=== PATIENT | female | born 1960 | race Caucasian/White ===

== ENCOUNTER 2017-01-04 01:43 | Emergency (ER) | payer BC ==
--- NOTE | 2017-01-04 02:20 | ERPHSYRPT ---
- History of Present Illness Time Seen by Provider: 01/04/17 02:05 Patient Subjective Stated Complaint: Pt sts been sick since Friday. Sts seen at urgent care and was dx with flu. Sts not given any Rx. Sts that she has had fever, highest temp 103.2. Last tylenol 4 hours ago. Sts cough with yellow sputum - thick in nature. Pt sts diarrhea a few days ago. Sts no N/V. Pt sts left ear pain and very sore throat. Triage Nursing Assessment: Pt alert, oriented, answers all questions appropriately. Skin p/w/d, resps non-labored. Lung sounds CTA bilat anterior/ posterior. Throat appears red. No exudate noted. Pain noted upon palpation left outer ear and left side of neck. + bowel sounds x 4 quadrants. Physician History: 56 y/o female with history of DM comes to the ER with complaints of shortness of breath, sore throat, wheezing, chest congestion and fever since Friday. Pt mentions she was seen at [facility], had a flu swab which was positive but was not treated. Pt had a fever as high as 102.4 but arrives with a temperature of 99.6. Timing/Duration: day(s) Activities at Onset: none Severity of Dyspnea-Max: mild Severity of Dyspnea-Current: mild Possible Cause: no prior episodes Modifying Factors: Improves With: coughing Associated Symptoms: cough, fever, wheezing International travel in last 2 weeks: No Allergies/Adverse Reactions: albuterol Allergy (Severe, Verified 04/28/15 07:18) Difficulty Breathing resp. distress Sulfa (Sulfonamide Antibiotics) Allergy (Severe, Verified 04/28/15 07:18) Tightness of Throat throat swells flu shot Allergy (Uncoded 01/04/17 02:08) Home Medications: Metformin HCl 500 mg [Glucophage 500 MG] 1 tab PO TID 04/28/15 [History] Pravastatin Sodium 1 tab PO DAILY 04/28/15 [History] Tamoxifen Citrate 1 tab PO DAILY 04/28/15 [History] Levothyroxine Sodium 137 mcg PO DAILY 01/04/17 [History] Hx Tetanus, Diphtheria Vaccination/Date Given: No Hx Influenza Vaccination/Date Given: No Hx Pneumococcal Vaccination/Date Given: No Immunizations Up to Date: No - Review of Systems Constitutional: No Fever, No Chills Eyes: No Symptoms Ears, Nose, & Throat: Throat Pain, Throat Swelling Respiratory: Cough, Dyspnea, Wheezing Cardiac: No Chest Pain, No Edema, No Syncope Abdominal/Gastrointestinal: No Abdominal Pain, No Nausea, No Vomiting, No Diarrhea Genitourinary Symptoms: No Dysuria Musculoskeletal: No Back Pain, No Neck Pain Skin: No Rash Neurological: No Dizziness, No Focal Weakness, No Sensory Changes Psychological: No Symptoms Endocrine: No Symptoms All Other Systems: Reviewed and Negative - Past Medical History Neurological History: No Pertinent History ENT History: No Pertinent History Cardiac History: No Pertinent History Respiratory History: No Pertinent History Endocrine Medical History: Diabetes Type II, Hypothyroidism Musculoskeletal History: No Pertinent History GI Medical History: No Pertinent History History: No Pertinent History Psycho-Social History: No Pertinent History Female Reproductive Disorders: No Pertinent History - Past Surgical History Past Surgical History: Yes Neuro Surgical History: No Pertinent History Cardiac: No Pertinent History Respiratory: No Pertinent History Gastrointestinal: No Pertinent History Genitourinary: No Pertinent History Female Surgical History: Hysterectomy, Lumpectomy Other Surgical History: exploratory lap.,right foot tendon, anal fissures - Social History Smoking Status: Never smoker Exposure to second hand smoke: No Drug Use: none Patient Lives Alone: No - Nursing Vital Signs Nursing Vital Signs: Initial Vital Signs Temperature 99.6 F Temperature Source Oral Pulse Rate 103 Respiratory Rate 18 Blood Pressure [Right Arm] 132/72 - Physical Exam General Appearance: no apparent distress, alert Eye Exam: PERRL/EOMI Ears, Nose, Throat Exam: pharyngeal erythema, No tonsillar exudate Neck Exam: normal inspection, supple Respiratory Exam: lungs clear Cardiovascular/Chest Exam: normal heart sounds, regular rate/rhythm, normal peripheral pulses Abdominal/Gastrointestinal Exam: soft, normal bowel sounds, No tenderness, No distention, No mass Extremity Exam: non-tender, normal range of motion, normal inspection, no calf tenderness, no pedal edema Neurologic Exam: alert, oriented x 3, cooperative, life 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-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 tested, sensation nml, No motor deficits Skin Exam: normal color, warm, No dry SpO2 Interpretation: normal SpO2: 96 Oxygen Delivery: Room Air - Course Nursing assessment & vital signs reviewed: Yes Ordered Tests: Active Orders 24 hr Category Date Time Status EKG-ER Only STAT Care 01/04/17 02:14 Active CHEST 2 VIEWS (PA AND LAT) Stat Exams 01/04/17 02:13 Taken CBC W DIFF Stat Lab 01/04/17 02:27 Completed CMP Stat Lab 01/04/17 02:27 Completed CULTURE, THROAT Stat Lab 01/04/17 02:27 Received Manual Differential NC Stat Lab 01/04/17 02:27 Completed NT PRO BNP Stat Lab 01/04/17 02:27 Completed STREP SCREEN-BETA A Stat Lab 01/04/17 02:27 Completed TROPONIN Stat Lab 01/04/17 02:27 Completed Medication Summary Generic Name Dose Route Start Last Admin Trade Name Zakiq PRN Reason Stop Dose Admin Azithromycin 500 mg 01/04/17 04:18 Zithromax 250 Mg Tablet PO 01/04/17 04:19 STAT ONE Guaifenesin/Codeine Phosphate 5 ml 01/04/17 04:18 Robitussin Ac Syrup Unit Dose Cup PO 01/04/17 04:19 ONCE ONE Lab/Rad Data: Laboratory Result Diagrams 01/04/17 02:27 01/04/17 02:27 Laboratory Results 01/04/17 01/04/17 01/04/17 Range/Units 02:27 02:27 02:27 WBC 4.4 (4.0-10.5) K/mm3 RBC 4.84 (4.1-5.4) M/mm3 Hgb 14.0 (12.0-16.0) gm/dl Hct 42.6 (35-47) % MCV 88.0 (78-100) fl MCH 28.9 (26-32) pg MCHC 32.9 (32-36) g/dl RDW 13.0 (11.5-14.0) % Plt Count 132 L (150-450) K/mm3 MPV 9.5 (6-9.5) fl Segmented Neutrophils 19 L (36.0-66.0) % Band Neutrophils 3 H (0.0-2.0) % Lymphocytes (Manual) 50 H (24-44) % Monocytes (Manual) 8 (0.0-12.0) % Eosinophils (Manual) 7 H (0.00-3.0) % Differential Comment NORMAL Atypical Lymphocytes 13 % Platelet Estimate NORMAL (NORMAL) Sodium 144 (136-145) mEq/L Potassium 3.8 (3.5-5.1) mEq/L Chloride 107 (98-107) mEq/L Carbon Dioxide 25.4 (21-32) mEq/L Anion Gap 14.9 (5-15) MEQ/L BUN 6 L (9-20) mg/dL Creatinine 0.82 (0.55-1.30) mg/dl Estimated GFR > 60 ML/MIN Glucose 140 H (70-110) MG/DL Calcium 8.7 (8.5-10.1) mg/dL Total Bilirubin 0.4 (0.2-1.0) mg/dL AST 62 H (15-37) U/L ALT 39 (12-78) U/L Alkaline Phosphatase 117 H (46-116) U/L Troponin I < 0.017 (0.000-0.056) ng/ml NT-Pro-B Natriuret Pep < 5.0 (0-125) pg/ml Serum Total Protein 7.0 (6.4-8.2) gm/dL Albumin 2.7 L (3.4-5.0) g/dL Streptococcus Screen (Negative) 01/04/17 Range/Units 02:27 WBC (4.0-10.5) K/mm3 RBC (4.1-5.4) M/mm3 Hgb (12.0-16.0) gm/dl Hct (35-47) % MCV (78-100) fl MCH (26-32) pg MCHC (32-36) g/dl RDW (11.5-14.0) % Plt Count (150-450) K/mm3 MPV (6-9.5) fl Segmented Neutrophils (36.0-66.0) % Band Neutrophils (0.0-2.0) % Lymphocytes (Manual) (24-44) % Monocytes (Manual) (0.0-12.0) % Eosinophils (Manual) (0.00-3.0) % Differential Comment Atypical Lymphocytes % Platelet Estimate (NORMAL) Sodium (136-145) mEq/L Potassium (3.5-5.1) mEq/L Chloride (98-107) mEq/L Carbon Dioxide (21-32) mEq/L Anion Gap (5-15) MEQ/L BUN (9-20) mg/dL Creatinine (0.55-1.30) mg/dl Estimated GFR ML/MIN Glucose (70-110) MG/DL Calcium (8.5-10.1) mg/dL Total Bilirubin (0.2-1.0) mg/dL AST (15-37) U/L ALT (12-78) U/L Alkaline Phosphatase (46-116) U/L Troponin I (0.000-0.056) ng/ml NT-Pro-B Natriuret Pep (0-125) pg/ml Serum Total Protein (6.4-8.2) gm/dL Albumin (3.4-5.0) g/dL Streptococcus Screen NEGATIVE (Negative) - Progress Progress: improved Air Movement: good Progress Note: 01/04/17 04:20 The CXR is within normal limits. Rapid strep is negative. The labs do not show any abnormalities. Pt will be d/c home on azithromycin and guafenesin with codeine for bronchitis. - Departure Time of Disposition: 04:21 Departure Disposition: Home Clinical Impression: Bronchitis Condition: Stable Critical Care Time: No Instructions: Bronchitis Additional Instructions: Return to the ER if you should continue to have shortness of breath, cough, fever or chills. Finish the antibiotics until completion. Prescriptions: Azithromycin 250 mg PO DAILY #4 tablet Guaifenesin/Codeine Phosphate [Codeine-Guaifen 10-100 mg/5 ml] 5 ml PO Q4-6HPRN PRN #120 liquid PRN Reason: Cough
[2017-01-04 02:32] LABS: Mean Corpuscular Hemoglobin 28.9 pg (26-32); Mean Platelet Volume 9.5 fl (6-9.5); Platelet Count 132 K/mm3 (150-450); Red Blood Count 4.84 M/mm3 (4.1-5.4); White Blood Count 4.4 K/mm3 (4.0-10.5)
[2017-01-04 02:53] LABS: ALBUMIN 2.7 g/dL (3.4-5.0); ALKALINE PHOSPHATASE 117 U/L (46-116); ANION GAP 14.9 MEQ/L (5-15); BILIRUBIN,TOTAL 0.4 mg/dL (0.2-1.0); BLOOD UREA NITROGEN 6 mg/dL (9-20); CHLORIDE 107 mEq/L (98-107); Carbon Dioxide 25.4 mEq/L (21-32); Glucose 140 MG/DL (70-110); Potassium 3.8 mEq/L (3.5-5.1); SGOT/AST 62 U/L (15-37); SGPT/ALT 39 U/L (12-78); SODIUM 144 mEq/L (136-145)
[2017-01-04 03:03] LABS: TROPONIN < 0.017 ng/ml (0.000-0.056)
[2017-01-04 03:09] LABS: ATYPICAL LYMPHS 13 %; BAND 3 % (0.0-2.0); Eosinophil 7 % (0.00-3.0); Platelet Estimate NORMAL (NORMAL); Total Cells Counted 100
[2017-01-04] MEDS ORDERED: Zithromax 250 MG TABLET PO ONE (04:18)
[2017-01-04] MEDS ORDERED: Robitussin AC Syrup Unit Dose Cup PO ONE (04:18)
[2017-01-04] MEDS ORDERED: Zithromax 250 MG TABLET ONE (04:23)
[2017-01-04] MEDS ORDERED: Robitussin AC Syrup Unit Dose Cup ONE (04:23)
[2017-01-04 04:35] VITALS: BP 116/73; PULSE 91; O2SAT 95
--- NOTE | 2017-01-04 09:00 | XRAY ---
Indication: Short of breath and flulike symptoms. Comparison: March 31, 2014. PA/lateral chest remains clear again with a few calcific granulomas. Heart is not enlarged. Bony thorax intact. Impression: Stable nonacute chest.
== END 2017-01-04 04:45 | disposition home or self-care (01) ==
LOC: ED 01:43
DX: J40 Bronchitis, not specified as acute or chronic (principal); R50.9 Fever, unspecified; R06.02 Shortness of breath; E11.9 Type 2 diabetes mellitus without complications; E03.9 Hypothyroidism, unspecified; Z79.84 Long term (current) use of oral hypoglycemic drugs; Z79.899 Other long term (current) drug therapy
CPT/HCPCS: 36415; 71020; 80053; 83880; 84484; 85025; 87070; 87430; 93005; 99283; 99284; 99285

== ENCOUNTER 2018-01-14 11:40 | Observation (INO) | payer BC ==
[2018-01-14] MEDS ORDERED: NITRO-BID 2% UD PACKETS TOP ONE (11:54)
[2018-01-14] MEDS ORDERED: BABY ASPIRIN 81 MG CHEW PO ONE (11:54)
[2018-01-14] MEDS ORDERED: NITRO-BID 2% UD PACKETS ONE (11:57)
[2018-01-14] MEDS ORDERED: BABY ASPIRIN 81 MG CHEW ONE (11:57)
--- NOTE | 2018-01-14 12:29 | XRAY ---
Indication: Chest pain. Comparison: January 04, 2017. Portable chest again demonstrates normal heart, lungs, and bony thorax with a few incidental calcified granulomas.
--- NOTE | 2018-01-14 12:29 | ERPHSYRPT ---
- History of Present Illness Time Seen by Provider: 01/14/18 11:54 Historian: patient, family, old records, other (Dr Chacko) Exam Limitations: no limitations Patient Subjective Stated Complaint: chest pain Triage Nursing Assessment: pt to er from Dr. Chacko's office, states she has had chest pain for 1 week with the onset of shingles, pain radiates through chest to the back, pt has shingles noted crusted over at this time Physician History: patient wth Shingles; developed new CP today left ant chest; heavy ; SOB; no n& V radiates to back; no prior hx; Timing/Duration: today, gradual onset Activities at Onset: emotional stress Quality: pressure, tightness Location: substernal Chest Pain Radiation: back Severity of Pain-Max: severe Severity of Pain-Current: moderate Modifying Factors: Improves With: nothing Associated Symptoms: shortness of breath, hurts to breathe, back pain Prior Chest Pain/Cardiac Workup: non-cardiac Nitro Today/Relief: provided by ED Aspirin Treatment Today: provided by ED Allergies/Adverse Reactions: albuterol Allergy (Severe, Verified 04/28/15 07:18) Difficulty Breathing resp. distress Sulfa (Sulfonamide Antibiotics) Allergy (Severe, Verified 04/28/15 07:18) Tightness of Throat throat swells flu shot Allergy (Uncoded 01/04/17 02:08) Home Medications: Metformin HCl 500 mg [Glucophage 500 MG] 1 tab PO TID 04/28/15 [History] Pravastatin Sodium 1 tab PO DAILY 04/28/15 [History] Tamoxifen Citrate 1 tab PO DAILY 04/28/15 [History] Levothyroxine Sodium 137 mcg PO DAILY 01/04/17 [History] Hx Tetanus, Diphtheria Vaccination/Date Given: No Hx Influenza Vaccination/Date Given: No (allergy advised by MD not to take them) Hx Pneumococcal Vaccination/Date Given: No - Review of Systems Constitutional: No Symptoms Eyes: No Symptoms Ears, Nose, & Throat: No Symptoms Respiratory: No Cough, No Dyspnea, No Wheezing Cardiac: Chest Pain, No Palpitations, No Syncope Abdominal/Gastrointestinal: No Abdominal Pain, No Nausea, No Vomiting, No Diarrhea Genitourinary Symptoms: No Symptoms Musculoskeletal: Back Pain, No Fall, No Injury Skin: Other (shingels left shoulder) Neurological: No Symptoms Psychological: No Symptoms Endocrine: No Symptoms Hematologic/Lymphatic: No Symptoms Immunological/Allergic: No Symptoms - Past Medical History Pertinent Past Medical History: Yes Neurological History: No Pertinent History ENT History: No Pertinent History Cardiac History: No Pertinent History Respiratory History: No Pertinent History Endocrine Medical History: Diabetes Type II, Hypothyroidism Musculoskeletal History: Arthritis GI Medical History: No Pertinent History History: No Pertinent History Psycho-Social History: No Pertinent History Female Reproductive Disorders: No Pertinent History - Past Surgical History Past Surgical History: Yes Neuro Surgical History: No Pertinent History Cardiac: No Pertinent History Respiratory: No Pertinent History Gastrointestinal: No Pertinent History Genitourinary: No Pertinent History Female Surgical History: Hysterectomy, Mastectomy Other Surgical History: exploratory lap.,right foot tendon, anal fissures - Social History Smoking Status: Never smoker Exposure to second hand smoke: No Alcohol Use: None Drug Use: none Patient Lives Alone: No Significant Family History: heart disease, diabetes, hypertension - Female History Hx Now: No - Nursing Vital Signs Nursing Vital Signs: Initial Vital Signs Temperature 97.8 F 01/14/18 11:43 Pulse Rate 80 01/14/18 11:43 Respiratory Rate 20 01/14/18 11:43 Blood Pressure 152/86 01/14/18 11:43 O2 Sat by Pulse Oximetry 98 01/14/18 11:43 Pain Scale Pain Intensity 5 - Physical Exam General Appearance: mild distress, alert Eye Exam: PERRL/EOMI, eyes nml inspection, No photophobia Ears, Nose, Throat Exam: normal ENT inspection, TMs normal, pharynx normal, moist mucous membranes Neck Exam: normal inspection, non-tender, supple, full range of motion, No carotid bruit, No JVD Respiratory Exam: normal breath sounds, lungs clear, airway intact, No chest tenderness, No respiratory distress, No pleural rub Cardiovascular Exam: regular rate/rhythm, normal heart sounds, normal peripheral pulses, capillary refill <2 sec, No murmur Gastrointestinal/Abdomen Exam: soft, normal bowel sounds, No tenderness, No distention, No guarding, No rebound, No organomegaly Pelvic Exam: deferred Rectal Exam: deferred Back Exam: normal inspection, normal range of motion, No CVA tenderness Extremity Exam: normal inspection, normal range of motion, No everette's sign, No pedal edema Neurologic Exam: alert, oriented x 3, cooperative, 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-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 tested, normal mood/affect, nml cerebellar function, nml station & gait Skin Exam: normal color, warm, dry, rash (shingles post left shoulder) Lymphatic Exam: No adenopathy SpO2 Interpretation: normal SpO2: 100 Oxygen Delivery: Room Air - Course Nursing assessment & vital signs reviewed: Yes EKG Interpreted by Me: RATE (89), Sinus Rhythm, NORMAL AXIS, NORMAL INTERVALS, NORMAL QRS, Non-specific ST Changes (poor R wave progression V leadds; compared to EKG done ) Rhythm Strip: Rate (89), Normal Sinus Rhythm - Radiology Exams Chest X-ray Interpretation: Reviewed by me, Teleradiologist Report, No Pneumonia, No Pneumothorax, Nml Heart Size, No Infiltrates Ordered Tests: Active Orders 24 hr Category Date Time Status Gas Brazer STAT Care 01/14/18 11:54 Active EKG-ER Only STAT Care 01/14/18 11:54 Active IV Insertion STAT Care 01/14/18 11:54 Active Pulse Oximetry (ED) STAT Care 01/14/18 11:54 Active Re-Check Vital Signs STAT Care 01/14/18 11:54 Active CHEST 1 VIEW (PORTABLE) Stat Exams 01/14/18 11:54 Completed CBC W DIFF Stat Lab 01/14/18 12:15 Completed CMP Routine Lab 01/14/18 12:15 Completed NT PRO BNP Routine Lab 01/14/18 12:15 Completed PROTIME WITH INR Stat Lab 01/14/18 12:15 Completed TROPONIN Q3H Lab 01/14/18 12:15 Completed TROPONIN Q3H Lab 01/14/18 15:00 Ordered TROPONIN Q3H Lab 01/14/18 18:00 Ordered TROPONIN Q3H Lab 01/14/18 21:00 Ordered TROPONIN Q3H Lab 01/15/18 00:00 Ordered Transfer Order Routine Transfer 01/14/18 Ordered Medication Summary Discontinued Medications Generic Name Dose Route Start Last Admin Trade Name Zakiq PRN Reason Stop Dose Admin Aspirin 324 mg 01/14/18 11:54 01/14/18 12:00 Baby Aspirin 81 Mg Chew PO 01/14/18 11:55 324 mg STAT ONE Administration Aspirin Confirm 01/14/18 11:57 Baby Aspirin 81 Mg Chew Administered 01/14/18 11:58 Dose 81 mg .ROUTE .STK-MED ONE Ketorolac Tromethamine 30 mg 01/14/18 12:46 01/14/18 13:01 Toradol 30 Mg Injection IV 01/14/18 12:47 30 mg STAT ONE Administration Ketorolac Tromethamine Confirm 01/14/18 12:54 Toradol 30 Mg Injection Administered 01/14/18 12:55 Dose 30 mg .ROUTE .STK-MED ONE Nitroglycerin 1 gm 01/14/18 11:54 01/14/18 12:01 Nitro-Bid 2% Ud Packets TOP 01/14/18 11:55 1 gm STAT ONE Administration Nitroglycerin Confirm 01/14/18 11:57 Nitro-Bid 2% Ud Packets Administered 01/14/18 11:58 Dose 1 gm .ROUTE .STK-MED ONE Ondansetron HCl 4 mg 01/14/18 12:46 01/14/18 13:01 Zofran 4 Mg/2 Ml Vial IV 01/14/18 12:47 4 mg STAT ONE Administration Ondansetron HCl Confirm 01/14/18 12:54 Zofran 4 Mg/2 Ml Vial Administered 01/14/18 12:55 Dose 4 mg .ROUTE .STK-MED ONE Lab/Rad Data: Laboratory Result Diagrams 01/14/18 12:15 01/14/18 12:15 Laboratory Results 01/14/18 01/14/18 01/14/18 Range/Units 12:15 12:15 12:15 WBC 7.6 (4.0-10.5) K/mm3 RBC 3.97 L (4.1-5.4) M/mm3 Hgb 13.6 (12.0-16.0) gm/dl Hct 40.9 (35-47) % MCV 103.0 H (78-100) fl MCH 34.2 H (26-32) pg MCHC 33.3 (32-36) g/dl RDW 16.5 H (11.5-14.0) % Plt Count 152 (150-450) K/mm3 MPV 9.1 (6-9.5) fl Gran % 45.8 (36.0-66.0) % Lymphocytes % 38.3 (24.0-44.0) % Monocytes % 12.6 H (0.0-12.0) % Eosinophils % 3.2 (0.00-5.0) % Basophils % 0.1 (0.0-0.4) % Basophils # 0.01 (0-0.4) INR 1.18 (0.8-3.0) Sodium 143 (137-145) mmol/L Potassium 4.4 (3.5-5.1) mmol/L Chloride 103 (98-107) mEq/L Carbon Dioxide 29 (22-30) mmol/L Anion Gap 15.2 H (5-15) MEQ/L BUN 7 (7-17) mg/dl Creatinine 0.54 (0.52-1.04) mg/dl Estimated GFR > 60 ML/MIN Glucose 136 H (74-106) mg/dL Calcium 9.5 (8.4-10.2) mg/dl Total Bilirubin 0.90 (0.2-1.3) mg/d? AST 58 H (14-36) U/L ALT 28 (0-35) U/L Alkaline Phosphatase 154 H (38-126) U/L Troponin I < 0.012 (0.000-0.034) ng/ml NT-Pro-B Natriuret Pep 67.9 (0-900) pg/ml Serum Total Protein 8.8 H (6.3-8.2) mg/dl Albumin 4.1 (3.5-5.0) g/dl reviewed reviewed - Progress Progress: improved, re-examined (after meds) Air Movement: good Progress Note: 01/14/18 12:29 iv and o2 given; family at [facility]; NTG and ASA gvien; labs and xr pending; will monitor and recheck 01/14/18 12:47 recheck vs; no relief with meds; will give more meds, monitor and recheck 01/14/18 13:20 rechecked and will admit to OBs per discussion with Dr Chacko; patient and family notified Blood Culture(s) Obtained: No Antibiotics given: No Discussed with : Ginna Will see patient in: hospital (observation) Counseled pt/family regarding: lab results, diagnosis, need for follow-up, rad results - Departure Time of Disposition: 13:21 Departure Disposition: Observation Clinical Impression: Chest pain at rest, Shingles, Diabetes Condition: Good Critical Care Time: No Referrals: MAMIE CHACKO [Primary Care Provider] -
[2018-01-14 12:39] LABS: BASOPHIL % 0.1 % (0.0-0.4); Basophil (Absolute #) 0.01 (0-0.4); Eosinophil % 3.2 % (0.00-5.0); Eosinophil (Absolute #) 0.24 (0-0.5); Granulocyte Absolute (ANC) 3.48 (1.4-6.9); Granulocytes % 45.8 % (36.0-66.0); Hematocrit 40.9 % (35-47); Hemoglobin 13.6 gm/dl (12.0-16.0); Lymphocyte (Absolute #) 2.91 (1.0-4.6); Lymphocytes % 38.3 % (24.0-44.0); Mean Corpuscular Hgb Concent. 33.3 g/dl (32-36); Mean Platelet Volume 9.1 fl (6-9.5); Monocyte (Absolute #) 0.96 (0.0-1.3); Monocytes % 12.6 % (0.0-12.0); Platelet Count 152 K/mm3 (150-450); Red Blood Count 3.97 M/mm3 (4.1-5.4); Red Cell Distribution Width 16.5 % (11.5-14.0); White Blood Count 7.6 K/mm3 (4.0-10.5)
[2018-01-14 12:42] LABS: Mean Corpuscular Hemoglobin 34.2 pg (26-32)
[2018-01-14 12:44] LABS: INR 1.18 (0.8-3.0)
[2018-01-14] MEDS ORDERED: TORAdol 30 mg Injection IV ONE (12:46)
[2018-01-14] MEDS ORDERED: Zofran 4 MG/2 ML VIAL IV ONE (12:46)
[2018-01-14 12:51] LABS: ALBUMIN 4.1 g/dl (3.5-5.0); ALKALINE PHOSPHATASE 154 U/L (38-126); ANION GAP 15.2 MEQ/L (5-15); BLOOD UREA NITROGEN 7 mg/dl (7-17); CHLORIDE 103 mEq/L (98-107); Calcium 9.5 mg/dl (8.4-10.2); Carbon Dioxide 29 mmol/L (22-30); Creatinine 1 0.54 mg/dl (0.52-1.04); Glucose 136 mg/dL (74-106); Potassium 4.4 mmol/L (3.5-5.1); SGOT/AST 58 U/L (14-36); SGPT/ALT 28 U/L (0-35); SODIUM 143 mmol/L (137-145); Total Protein 8.8 mg/dl (6.3-8.2)
[2018-01-14] MEDS ORDERED: Zofran 4 MG/2 ML VIAL ONE (12:54)
[2018-01-14] MEDS ORDERED: TORAdol 30 mg Injection ONE (12:54)
[2018-01-14 13:02] LABS: NT PRO BNP 67.9 pg/ml (0-900)
[2018-01-14 13:12] LABS: TROPONIN < 0.012 ng/ml (0.000-0.034)
[2018-01-14] MEDS ORDERED: MILK OF MAGNESIA 30 ML PO PRN (14:44)
[2018-01-14] MEDS ORDERED: MAALOX ES 30 ML UNIT DOSE PO PRN (14:44)
[2018-01-14] MEDS ORDERED: TYLENOL 325 MG PO PRN (14:44)
[2018-01-14] MEDS ORDERED: Senokot-S Tablet PO PRN (14:44)
[2018-01-14] MEDS: MORPHINE SULFATE 4 MG INJ IV PRN (18:28)
[2018-01-14] MEDS: Zofran 4 MG/2 ML VIAL IV PRN (18:32)
[2018-01-14] MEDS ORDERED: Nitrostat 0.4 MG Tablet SL PRN (19:48)
[2018-01-14] MEDS ORDERED: Norco 10/325 MG Tablet PO PRN (19:58)
[2018-01-14] MEDS: ZOVIRAX 800 MG PO SCH (22:23)
[2018-01-15] MEDS ORDERED: MORPHINE SULFATE 2 MG INJ ONE (00:42)
[2018-01-15] MEDS: MORPHINE SULFATE 4 MG INJ IV PRN (00:42)
[2018-01-15] MEDS: Zofran 4 MG/2 ML VIAL IV PRN (00:45)
[2018-01-15 05:53] LABS: Risk Ratio 3.3
[2018-01-15 06:03] LABS: LDL, DIRECT 79.86 mg/dL (30-100)
[2018-01-15] MEDS: ZOVIRAX 800 MG PO SCH (06:22)
[2018-01-15 07:00] VITALS: BP 127/66; PULSE 85; O2SAT 96
[2018-01-15] MEDS ORDERED: AMARYL 4 MG PO SCH (08:00)
[2018-01-15] MEDS ORDERED: Glucophage 500 MG PO SCH (08:00)
--- NOTE | 2018-01-15 08:59 | PCM.DS ---
Discharge Summary Date of Admission: 01/14/18 14:10 Admitting Physician: MAMIE MARCOS Primary Care Provider: MAMIE MARCOS Allergies Allergies albuterol Allergy (Severe, Verified 04/28/15 07:18) Difficulty Breathing resp. distress Sulfa (Sulfonamide Antibiotics) Allergy (Severe, Verified 04/28/15 07:18) Tightness of Throat throat swells flu shot Allergy (Uncoded 01/04/17 02:08) Hospital Summary - Hospital Course Hospital Course: Pt admitted through ER after having been seen in the office, was c/o up to 10/ 10 L chest pain/pressure. Has shingles on the L chest. She had an increase in CP last night and received IV morphine. She is still having CP, it's better with 1/2 norco. Her troponins were negative. Will send home today, she has norco at home. - Vitals & Intake/Output Vital Signs: Vital Signs Temperature 97.7 F 01/15/18 07:00 Pulse Rate 85 01/15/18 07:00 Respiratory Rate 20 01/15/18 07:00 Blood Pressure 127/66 01/15/18 07:00 O2 Sat by Pulse Oximetry 96 01/15/18 07:00 Oxygen-Last Documented O2 Percentage 2 Liters = 28% Intake & Output: Intake & Output 01/12/18 01/13/18 01/14/18 01/15/18 11:59 11:59 11:59 11:59 Intake Total 1440 Balance 1440 Weight 93.68 kg - Lab Result Diagrams: 01/14/18 12:15 01/14/18 12:15 Lab Results-Last 24 Hrs: Accuchecks Date 01/14/18 Time 22:00 Accucheck Value: 119 Lab Results-Last 24 Hours 01/14/18 01/14/18 01/14/18 Range/Units 15:14 16:12 18:20 D-Dimer 376.97 (0-500) ng/mL Troponin I < 0.012 < 0.012 (0.000-0.034) ng/ml Triglycerides (30-150) mg/dl Cholesterol (50-200) mg/dl LDL Cholesterol (30-100) mg/dL HDL Cholesterol (40-60) mg/dl Heart Disease Risk Ratio 01/14/18 01/15/18 01/15/18 Range/Units 21:45 00:00 05:10 D-Dimer (0-500) ng/mL Troponin I < 0.012 < 0.012 (0.000-0.034) ng/ml Triglycerides 92 (30-150) mg/dl Cholesterol 155 (50-200) mg/dl LDL Cholesterol 79.86 (30-100) mg/dL HDL Cholesterol 47 (40-60) mg/dl Heart Disease Risk Ratio 3.3 Micro Results-Entire Visit: Accuchecks Date 01/14/18 Time 22:00 Accucheck Value: 119 - Procedures and Test Procedures and Tests throughout Hospitalization: Therapy Orders & Screens 01/14/18 18:18 EKG STAT Comment: Diagnosis: chest pain 01/14/18 20:05 EKG ONCE Comment: Diagnosis: chest pain 01/15/18 05:00 EKG ONCE Comment: Diagnosis: chest pain 01/16/18 05:00 EKG ONCE Comment: Diagnosis: chest pain 01/17/18 05:00 EKG ONCE Comment: Diagnosis: chest pain Discharge Exam General Appearance: no apparent distress, alert, obese Neurologic Exam: oriented x 3, cooperative Skin Exam: normal color, warm, dry, rash (L upper back and L chest with scabbed vesicles on mildly erythematous base.) Eye Exam: eyes nml inspection Respiratory Exam: normal breath sounds, lungs clear, No crackles/rales, No rhonchi, No wheezing Cardiovascular Exam: regular rate/rhythm, normal heart sounds, No murmur Extremity Exam: No pedal edema, No swelling Final Diagnosis/Problem List - Final Discharge Diagnosis/Problem (1) Chest pain at rest Current Visit: Yes Status: Acute Assessment & Plan: Ruled out for MO. EKGs without change. I think the pain is just related to the shingles. (2) Shingles Current Visit: Yes Status: Acute Assessment & Plan: resolving, but still having significant pain. (3) Diabetes Current Visit: Yes Status: Acute - Discharge Disposition: Home, Self-Care Condition: Good Prescriptions: Continue Tamoxifen Citrate 1 tab PO HS Metformin HCl 500 mg [Glucophage 500 MG] 1 tab PO TID Levothyroxine Sodium 137 mcg PO DAILY Glimepiride 4 mg [Amaryl 4 mg] 4 mg PO DAILY Acyclovir 800 mg [Zovirax 800 mg] 800 mg PO 5XD Hydrocodone/Acetaminophen [Hydrocodone-Acetamin 10-325 mg] 0.5 tablet PO QID PRN PRN Reason: Pain Follow up with: MAMIE MARCOS [Primary Care Provider] - 1 Week
[2018-01-15] MEDS ORDERED: SYNTHROID 25 MCG PO SCH (10:00)
[2018-01-15] MEDS ORDERED: SYNTHROID 112 MCG PO SCH (10:00)
[2018-01-15] MEDS ORDERED: NON-FORMULARY ITEM (Levothyroxine Sodium [Levothyroxine Sodium] 137 MCG) PO SCH (10:00)
[2018-01-15] MEDS ORDERED: ENOXAPARIN SODIUM SQ SCH (10:00)
[2018-01-15] MEDS ORDERED: Ecotrin 325 MG PO SCH (10:00)
[2018-01-15] MEDS ORDERED: NON-FORMULARY ITEM PO SCH (22:00)
== END 2018-01-15 10:25 | disposition home or self-care (01) ==
LOC: ED 11:40 → MED SURG 14:10
PROVIDERS: ADMIT Family Medicine; ATTEND Family Medicine
DX: R07.9 Chest pain, unspecified (principal); B02.9 Zoster without complications; E11.9 Type 2 diabetes mellitus without complications; Z79.4 Long term (current) use of insulin
CPT/HCPCS: 36000; 36415; 71045; 80053; 80061; 82962; 83036; 83721; 83880; 84484; 85025; 85379; 85610; 93005; 93041; 93268; 96374; 96375; 99285; G0378; J1885; J2270; J2405; A9270-GY

== ENCOUNTER 2019-12-11 17:21 | Inpatient (IN) | payer BC ==
[2019-12-11] MEDS ORDERED: PULMICORT 0.5 MG/2 ML RESPULES IH ONE (17:30)
--- NOTE | 2019-12-11 17:44 | ERPHSYRPT ---
- History of Present Illness Time Seen by Provider: 12/11/19 17:40 Source: patient Exam Limitations: no limitations Patient Subjective Stated Complaint: Pt states "I have been to [facility] twice in the last two days. I have been short of breath and my body hurts. They gave me some new pills at [facility]." Triage Nursing Assessment: Pt presented alert and oriented X 3, skin wpd pt presented sitting upright in a wheelchair, tachypneic, audible wheezes heard. Pt has edema noted bilat lower extremeties. Physician History: Pt states "I have been to [facility] twice in the last two days. I have been short of breath and my body hurts. They gave me some new pills at [facility]." no fever, c/o bodyache Timing/Duration: day(s) (two days) Possible Cause: no prior episodes Modifying Factors: Improves With: activity Associated Symptoms: cough International travel in last 2 weeks: No Allergies/Adverse Reactions: albuterol Allergy (Severe, Verified 04/28/15 07:18) Difficulty Breathing resp. distress ciprofloxacin [From Cipro] Allergy (Severe, Verified 12/11/19 17:32) Swelling Sulfa (Sulfonamide Antibiotics) Allergy (Severe, Verified 04/28/15 07:18) Tightness of Throat throat swells flu shot Allergy (Uncoded 01/04/17 02:08) Home Medications: Azithromycin 250 mg PO UD 12/11/19 [History] Benzonatate 200 mg PO TID 12/11/19 [History] Furosemide 20 mg [Lasix 20 mg] 20 mg PO DAILY 12/11/19 [History] Glimepiride 4 mg [Amaryl 4 mg] 4 mg PO DAILY 12/11/19 [History] Levothyroxine Sodium 100 mcg PO DAILY 12/11/19 [History] Metformin HCl 500 mg PO BID 12/11/19 [History] methylPREDNISolone [Methylprednisolone] 4 mg PO UD 12/11/19 [History] Hx Tetanus, Diphtheria Vaccination/Date Given: Yes Hx Influenza Vaccination/Date Given: No Hx Pneumococcal Vaccination/Date Given: No Immunizations Up to Date: Yes - Review of Systems Constitutional: Fever, Fatigue, Malaise, Weakness, No Chills Eyes: No Symptoms Ears, Nose, & Throat: No Symptoms Respiratory: Cough, Dyspnea, Dyspnea on Exertion (PUENTES), Wheezing Cardiac: No Chest Pain, No Edema, No Syncope Abdominal/Gastrointestinal: No Abdominal Pain, No Nausea, No Vomiting, No Diarrhea Genitourinary Symptoms: No Dysuria Musculoskeletal: No Back Pain, No Neck Pain Skin: No Rash Neurological: No Dizziness, No Focal Weakness, No Sensory Changes Psychological: No Symptoms Endocrine: No Symptoms All Other Systems: Reviewed and Negative - Past Medical History Pertinent Past Medical History: Yes Neurological History: No Pertinent History ENT History: No Pertinent History Cardiac History: No Pertinent History Respiratory History: No Pertinent History Endocrine Medical History: Diabetes Type II, Hypothyroidism Musculoskeletal History: Arthritis GI Medical History: No Pertinent History History: No Pertinent History Psycho-Social History: No Pertinent History Female Reproductive Disorders: Breast Cancer - Past Surgical History Past Surgical History: Yes Neuro Surgical History: No Pertinent History Cardiac: No Pertinent History Respiratory: No Pertinent History Gastrointestinal: No Pertinent History Genitourinary: No Pertinent History Female Surgical History: Hysterectomy, Lumpectomy Other Surgical History: exploratory lap.,right foot tendon, anal fissures - Social History Smoking Status: Never smoker Exposure to second hand smoke: No Alcohol Use: None Drug Use: none Patient Lives Alone: No Significant Family History: heart disease, diabetes, hypertension - Nursing Vital Signs Nursing Vital Signs: Initial Vital Signs Temperature 100.0 F 12/11/19 17:24 Pulse Rate 114 H 12/11/19 17:24 Respiratory Rate 26 H 12/11/19 17:24 Blood Pressure 156/90 12/11/19 17:24 O2 Sat by Pulse Oximetry 97 12/11/19 17:24 Pain Scale Pain Intensity 4 - Physical Exam General Appearance: no apparent distress, alert Eye Exam: PERRL/EOMI Neck Exam: normal inspection, supple Respiratory Exam: diminished breath sounds, wheezing Cardiovascular/Chest Exam: normal heart sounds, regular rate/rhythm Abdominal/Gastrointestinal Exam: soft, No tenderness, No distention, No mass Extremity Exam: non-tender, normal range of motion, normal inspection, no calf tenderness, no pedal edema Neurologic Exam: alert, oriented x 3, cooperative, 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 II-XII nml as tested, sensation nml, No motor deficits Skin Exam: normal color, warm, No dry SpO2 Interpretation: normal SpO2: 97 O2 Delivery: Room Air - Course Nursing assessment & vital signs reviewed: Yes - Radiology Exams Chest X-ray Interpretation: Reviewed by me Ordered Tests: Active Orders 24 hr Category Date Time Status EKG-ER Only STAT Care 12/11/19 17:26 Active CHEST 2 VIEWS (PA AND LAT) Stat Exams 12/11/19 17:28 Taken CBC W DIFF Stat Lab 12/11/19 17:26 Completed CMP Stat Lab 12/11/19 17:58 Completed Lactic Acid Stat Lab 12/11/19 17:44 Ordered NT PRO BNP Stat Lab 12/11/19 17:58 Completed Respiratory Therapy Assessment DAILY RT 12/11/19 17:53 Completed Transfer Order Routine Transfer 12/11/19 Ordered Medication Summary Generic Name Dose Route Start Last Admin Trade Name Freq PRN Reason Stop Dose Admin Ceftriaxone Sodium/Dextrose 1 g in 50 mls @ 100 mls/hr 12/11/19 18:13 Rocephin 1 Gm-D5w 50 Ml Bag IV 12/11/19 18:42 STAT STA Sodium Chloride 1,000 mls @ 100 mls/hr 12/11/19 18:15 Sodium Chloride 0.9% 1000 Ml IV 01/10/20 18:14 .Q10H SHILA Discontinued Medications Generic Name Dose Route Start Last Admin Trade Name Freq PRN Reason Stop Dose Admin Budesonide 0.5 mg 12/11/19 17:30 12/11/19 17:52 Pulmicort 0.5 Mg/2 Ml Respules IH 12/11/19 17:31 0.5 mg STAT ONE Administration Ceftriaxone Sodium/Dextrose Confirm 12/11/19 18:26 Rocephin 1 Gm-D5w 50 Ml Bag Administered 12/11/19 18:27 Dose 1 g in 50 mls @ ud IV .STK-MED ONE Lab/Rad Data: Laboratory Result Diagrams 12/11/19 17:26 12/11/19 17:58 Laboratory Results 12/11/19 12/11/19 Range/Units 17:58 17:26 WBC 4.0 (4.0-10.5) K/mm3 RBC 3.98 L (4.1-5.4) M/mm3 Hgb 9.0 L (12.0-16.0) gm/dl Hct 30.7 L (35-47) % MCV 77.1 L (78-100) fl MCH 22.6 L (26-32) pg MCHC 29.3 L (32-36) g/dl RDW 17.7 H (11.5-14.0) % Plt Count 118 L (150-450) K/mm3 MPV 9.0 (7.5-11.0) fl Gran % 44.1 (36.0-66.0) % Eos # (Auto) 0.29 (0-0.5) Absolute Lymphs (auto) 0.72 L (1.0-4.6) Absolute Monos (auto) 1.20 (0.0-1.3) Lymphocytes % 18.0 L (24.0-44.0) % Monocytes % 30.1 H (0.0-12.0) % Eosinophils % 7.3 H (0.00-5.0) % Basophils % 0.5 (0.0-0.4) % Absolute Granulocytes 1.76 (1.4-6.9) Basophils # 0.02 (0-0.4) Sodium 142 (137-145) mmol/L Potassium 4.1 (3.5-5.1) mmol/L Chloride 107 (98-107) mmol/L Carbon Dioxide 28 (22-30) mmol/L Anion Gap 12.0 (5-15) MEQ/L BUN 7 (7-17) mg/dL Creatinine 0.65 (0.52-1.04) mg/dL Estimated GFR > 60.0 ML/MIN Glucose 149 H (74-106) mg/dL Calcium 8.6 (8.4-10.2) mg/dL Total Bilirubin 1.60 H (0.2-1.3) mg/dL AST 91 H (14-36) U/L ALT 22 (0-35) U/L Alkaline Phosphatase 174 H (38-126) U/L NT-Pro-B Natriuret Pep 273 (0-900) pg/mL Serum Total Protein 7.6 (6.3-8.2) g/dL Albumin 3.6 (3.5-5.0) g/dL - Progress Progress: unchanged Air Movement: fair Blood Culture(s) Obtained: No Antibiotics given: Yes Discussed with : Gaby Will see patient in: hospital (full admit) Counseled pt/family regarding: lab results, diagnosis, need for follow-up, rad results - Departure Departure Disposition: Home Clinical Impression: Pneumonia due to infectious agent Qualifiers: Laterality: right Lung location: lower lobe of lung Qualified Code(s): J18.9 - Pneumonia, unspecified organism Condition: Fair Critical Care Time: Yes Critical Care Time(excluding separately billable procedures): Critical 30-74 mins Referrals: MAMIE MARCOS [Primary Care Provider] -
[2019-12-11 17:59] LABS: Absolute Neutrophil Ct (ANC) 1.76 (1.4-6.9); BASOPHIL % 0.5 % (0.0-0.4); Basophil (Absolute #) 0.02 (0-0.4); Eosinophil % 7.3 % (0.00-5.0); Eosinophil (Absolute #) 0.29 (0-0.5); Hematocrit 30.7 % (35-47); Lymphocyte (Absolute #) 0.72 (1.0-4.6); Mean Cell Volume 77.1 fl (78-100); Mean Corpuscular Hemoglobin 22.6 pg (26-32); Mean Corpuscular Hgb Concent. 29.3 g/dl (32-36); Monocytes % 30.1 % (0.0-12.0); Neutrophil % 44.1 % (36.0-66.0); Platelet Count 118 K/mm3 (150-450); Red Blood Count 3.98 M/mm3 (4.1-5.4); Red Cell Distribution Width 17.7 % (11.5-14.0)
[2019-12-11] MEDS ORDERED: ROCEPHIN 1 Gm-D5w 50 ml Bag** 1 G/50 ML IVPB IV STA (18:13)
[2019-12-11] MEDS ORDERED: Sodium Chloride 0.9% 1000 ML 1,000 ML IV SCH (18:15)
[2019-12-11 18:21] LABS: ALBUMIN 3.6 g/dL (3.5-5.0); ALKALINE PHOSPHATASE 174 U/L (38-126); BLOOD UREA NITROGEN 7 mg/dL (7-17); CHLORIDE 107 mmol/L (98-107); Calcium 8.6 mg/dL (8.4-10.2); Carbon Dioxide 28 mmol/L (22-30); Creatinine 1 0.65 mg/dL (0.52-1.04); Glucose 149 mg/dL (74-106); NT PRO BNP 273 pg/mL (0-900); Potassium 4.1 mmol/L (3.5-5.1); SGOT/AST 91 U/L (14-36); SGPT/ALT 22 U/L (0-35); SODIUM 142 mmol/L (137-145); Total Protein 7.6 g/dL (6.3-8.2)
[2019-12-11] MEDS ORDERED: Sodium Chloride 0.9% 1000 ML 1,000 ML ONE (18:26)
[2019-12-11] MEDS ORDERED: ROCEPHIN 1 Gm-D5w 50 ml Bag** 1 G/50 ML IVPB IV ONE (18:26)
--- NOTE | 2019-12-11 20:12 | XRAY ---
Indication: Short of breath and wheezing. Comparison: January 14, 2018. PA/lateral chest demonstrates new diffuse right lung and mid to lower left lung infiltrates without consolidation/large effusion. Remaining heart and bony thorax normal.
[2019-12-11] MEDS ORDERED: Glucophage 500 MG ONE (20:54)
[2019-12-11] MEDS: TYLENOL 325 MG PO PRN (20:55)
[2019-12-11] MEDS ORDERED: MOTRIN 400 MG PO PRN (20:56)
[2019-12-11] MEDS: Tussionex Pennkinetic Susp PO PRN (21:58)
[2019-12-11] MEDS ORDERED: solu-MEDROL 40 MG IV ONE (22:00)
[2019-12-12] MEDS: TYLENOL 325 MG PO PRN (04:30)
[2019-12-12] MEDS: PULMICORT 0.5 MG/2 ML RESPULES IH SCH ×2 (07:31→19:54)
[2019-12-12] MEDS ORDERED: Glucophage 500 MG PO SCH (08:00)
[2019-12-12] MEDS: AMARYL 4 MG PO SCH (08:27)
[2019-12-12] MEDS: NovoLOG Insulin SQ PRN ×4 (08:31→22:45)
[2019-12-12] MEDS ORDERED: Levofloxacin 500MG/100ML D5W 500 MG/100 ML BAG IV SCH (10:00)
[2019-12-12] MEDS: LASIX 20 MG PO SCH (10:36)
[2019-12-12] MEDS: Tessalon Perles 100 MG PO SCH ×3 (10:36→22:45)
[2019-12-12] MEDS: SYNTHROID 100 MCG PO SCH (10:42)
[2019-12-12] MEDS: PROTONIX 40 MG IV IV SCH (12:25)
[2019-12-12] MEDS: Unasyn 3GM / NaCl 100ML 3 GM/100 ML IVPB IV SCH ×2 (12:25→17:16)
[2019-12-12] MEDS ORDERED: Ativan 1 MG PO PRN (12:32)
[2019-12-12] MEDS: Sodium Chloride 0.9% 1000 ML 1,000 ML IV SCH ×2 (12:33→20:00)
--- NOTE | 2019-12-12 12:42 | PCM.HP ---
History of Present Illness - Chief Complaint Chief Complaint: Pneumonia History of Present Illness: is a 59 year old female pt of mine from [facility] with DM II, hypothyroid, and hx breast cancer who was admitted through ER with pneumonia yesterday. She started feeling poorly 3d ago suddenly, with cough, fever, and SOB. lorrie went to [facility] 2d in a row; CXR was taken the second day and she was given and antibiotic IM and a steroid IM. She ended up coming to [facility] ER that same evening. Her CXR shows bilateral infiltrates. She was given rocephin in the ER and this morning her antibiotic has been changed to IV unasyn. She is still SOB particularly with exertion. States she hasn't slept in 3 days. - Review of Systems Constitutional: Fever Ears, Nose, & Throat: Epistaxis (few days ago with clots) Respiratory: Cough, Short Of Breath Musculoskeletal: Myalgias All Other Systems: Reviewed and Negative Medications & Allergies Home Medications: Home Medication List Azithromycin 250 mg PO UD 12/11/19 [History Confirmed 12/11/19] Benzonatate 200 mg PO TID 12/11/19 [History Confirmed 12/11/19] Cyanocobalamin 1000 Mcg/ml [Cyanocobalamin B-12 1000 MCG/ML] 1,000 mcg IJ UD 12/11/19 [History Confirmed 12/11/19] Furosemide 20 mg [Lasix 20 mg] 20 mg PO DAILY 12/11/19 [History Confirmed 12/11/19] Glimepiride 4 mg [Amaryl 4 mg] 4 mg PO DAILY 12/11/19 [History Confirmed 12/11/19] Ibuprofen 200 mg [Motrin 200 mg] 400 mg PO Q6H PRN PRN 12/11/19 [History Confirmed 12/11/19] Levothyroxine Sodium 100 mcg PO DAILY 12/11/19 [History Confirmed 12/11/19] Metformin HCl 500 mg PO BID 12/11/19 [History Confirmed 12/11/19] methylPREDNISolone [Methylprednisolone] 4 mg PO UD 12/11/19 [History Confirmed 12/11/19] Allergies/Adverse Reactions: Allergies Allergy/AdvReac Type Severity Reaction Status Date / Time albuterol Allergy Severe Difficulty Verified 04/28/15 07:18 Breathing ciprofloxacin [From Cipro] Allergy Severe Swelling Verified 12/11/19 17:32 Sulfa (Sulfonamide Allergy Severe Tightness Verified 04/28/15 07:18 Antibiotics) of Throat flu shot Allergy Uncoded 01/04/17 02:08 - Past Medical History Past Medical History: Yes Neurological History: No Pertinent History ENT History: No Pertinent History Cardiac History: No Pertinent History Respiratory History: No Pertinent History Endocrine Medical History: Diabetes Type II, Hypothyroidism Musculoskelatal History: Arthritis GI Medical History: No Pertinent History History: No Pertinent History Pyscho-Social History: No Pertinent History Reproductive Disorders: Breast Cancer Comment: Shingles - Female History Are you now?: No - Past Surgical History Past Surgical History: Yes Neuro Surgical History: No Pertinent History Cardiac History: No Pertinent History Respiratory Surgery: No Pertinent History GI Surgical History: No Pertinent History Genitourinary Surgical Hx: No Pertinent History Female Surgical History: Hysterectomy, Lumpectomy Other Surgical History: exploratory lap.,right foot tendon, anal fissures - Social History Smoking Status: Never smoker Exposure to second hand smoke: No Alcohol: None Drug Use: none Significant Family History: heart disease, diabetes, hypertension - Physical Exam Vital Signs: Vital Signs - 24 hr Temp Pulse Resp BP BP Pulse Ox 12/12/19 12:00 97.7 F 86 22 135/72 97 12/12/19 08:00 97.5 F 81 20 135/68 98 12/12/19 07:31 90 20 98 12/12/19 04:21 97.6 F 95 H 22 142/74 94 L 12/11/19 23:42 98.5 F 94 H 20 121/60 97 12/11/19 20:05 99.4 F 104 H 24 151/66 100 12/11/19 20:02 116 H 24 95 12/11/19 18:30 97 12/11/19 18:22 100.0 F 109 H 22 152/84 100 12/11/19 17:53 100 H 24 100 12/11/19 17:24 100.0 F 114 H 26 H 156/90 90 L Oxygen-Last 24 hours Oxygen Flowrate (L/min)-RT 3 General Appearance: no apparent distress, alert, obese Neurologic Exam: oriented x 3, cooperative Eye Exam: eyes nml inspection Ears, Nose, Throat Exam: moist mucous membranes Neck Exam: normal inspection Respiratory Exam: diminished breath sounds, rhonchi (scattered), No crackles/ rales, No wheezing Cardiovascular Exam: regular rate/rhythm, normal heart sounds, No murmur Gastrointestinal/Abdomen Exam: soft, normal bowel sounds, No tenderness, No distention, No mass, No guarding, No rebound Back Exam: normal inspection, No rash Extremity Exam: normal inspection, No pedal edema, No swelling Skin Exam: normal color, warm, dry, No rash Results - Labs Lab/Micro Results: Accuchecks Date 12/12/19 Time 07:30 Accucheck Value: 291 Accucheck Value: 126 Lab Results-Last 24 Hours 12/11/19 12/11/19 12/11/19 Range/Units 17:26 17:58 18:29 WBC 4.0 (4.0-10.5) K/mm3 RBC 3.98 L (4.1-5.4) M/mm3 Hgb 9.0 L (12.0-16.0) gm/dl Hct 30.7 L (35-47) % MCV 77.1 L (78-100) fl MCH 22.6 L (26-32) pg MCHC 29.3 L (32-36) g/dl RDW 17.7 H (11.5-14.0) % Plt Count 118 L (150-450) K/mm3 MPV 9.0 (7.5-11.0) fl Gran % 44.1 (36.0-66.0) % Eos # (Auto) 0.29 (0-0.5) Absolute Lymphs (auto) 0.72 L (1.0-4.6) Absolute Monos (auto) 1.20 (0.0-1.3) Lymphocytes % 18.0 L (24.0-44.0) % Monocytes % 30.1 H (0.0-12.0) % Eosinophils % 7.3 H (0.00-5.0) % Basophils % 0.5 (0.0-0.4) % Absolute Granulocytes 1.76 (1.4-6.9) Basophils # 0.02 (0-0.4) Sodium 142 (137-145) mmol/L Potassium 4.1 (3.5-5.1) mmol/L Chloride 107 (98-107) mmol/L Carbon Dioxide 28 (22-30) mmol/L Anion Gap 12.0 (5-15) MEQ/L BUN 7 (7-17) mg/dL Creatinine 0.65 (0.52-1.04) mg/dL Estimated GFR > 60.0 ML/MIN Glucose 149 H (74-106) mg/dL Hemoglobin A1c (4.5-6.0) % Lactic Acid 2.5 H (0.4-2.0) Calcium 8.6 (8.4-10.2) mg/dL Total Bilirubin 1.60 H (0.2-1.3) mg/dL AST 91 H (14-36) U/L ALT 22 (0-35) U/L Alkaline Phosphatase 174 H (38-126) U/L NT-Pro-B Natriuret Pep 273 (0-900) pg/mL Serum Total Protein 7.6 (6.3-8.2) g/dL Albumin 3.6 (3.5-5.0) g/dL 12/11/19 12/11/19 12/12/19 Range/Units 19:35 20:33 01:00 WBC (4.0-10.5) K/mm3 RBC (4.1-5.4) M/mm3 Hgb (12.0-16.0) gm/dl Hct (35-47) % MCV (78-100) fl MCH (26-32) pg MCHC (32-36) g/dl RDW (11.5-14.0) % Plt Count (150-450) K/mm3 MPV (7.5-11.0) fl Gran % (36.0-66.0) % Eos # (Auto) (0-0.5) Absolute Lymphs (auto) (1.0-4.6) Absolute Monos (auto) (0.0-1.3) Lymphocytes % (24.0-44.0) % Monocytes % (0.0-12.0) % Eosinophils % (0.00-5.0) % Basophils % (0.0-0.4) % Absolute Granulocytes (1.4-6.9) Basophils # (0-0.4) Sodium (137-145) mmol/L Potassium (3.5-5.1) mmol/L Chloride (98-107) mmol/L Carbon Dioxide (22-30) mmol/L Anion Gap (5-15) MEQ/L BUN (7-17) mg/dL Creatinine (0.52-1.04) mg/dL Estimated GFR ML/MIN Glucose (74-106) mg/dL Hemoglobin A1c 6.72 H (4.5-6.0) % Lactic Acid Cancelled 2.9 H (0.4-2.0) Calcium (8.4-10.2) mg/dL Total Bilirubin (0.2-1.3) mg/dL AST (14-36) U/L ALT (0-35) U/L Alkaline Phosphatase (38-126) U/L NT-Pro-B Natriuret Pep (0-900) pg/mL Serum Total Protein (6.3-8.2) g/dL Albumin (3.5-5.0) g/dL Accuchecks Date 12/12/19 Time 07:30 Accucheck Value: 291 Accucheck Value: 126 - Radiology Impressions Radiology Exams & Impressions: Radiology Procedures Category Date Time Status CHEST 2 VIEWS (PA AND LAT) Stat Exams 12/11/19 17:28 Completed - Other Procedures and Tests Respiratory Therapy 12/11/19 19:22 Oxygen Nasal Cannula 2 lpm 12/11/19 20:00 Respiratory Therapy Assessment DAILY Assessment/Plan (1) Pneumonia due to infectious agent Current Visit: Yes Status: Acute Qualifiers: Laterality: right Lung location: lower lobe of lung Qualified Code(s): J18.9 - Pneumonia, unspecified organism Assessment & Plan: on IV unasyn. On O2 per NC. Tmax 100.0 on admission. If no improvement will check CXR again in a.m. 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 Pt agrees to comply. Code(s): E11.9 - TYPE 2 DIABETES MELLITUS WITHOUT COMPLICATIONS
[2019-12-12] MEDS: ENOXAPARIN SODIUM SQ SCH (14:03)
[2019-12-12] MEDS: solu-MEDROL 40 MG IV SCH ×2 (14:04→22:45)
[2019-12-12] MEDS: Tussionex Pennkinetic Susp PO PRN (17:36)
[2019-12-13] MEDS: Unasyn 3GM / NaCl 100ML 3 GM/100 ML IVPB IV SCH ×2 (00:26→05:45)
[2019-12-13] MEDS: PULMICORT 0.5 MG/2 ML RESPULES IH SCH ×3 (04:06→20:02)
[2019-12-13] MEDS: SYNTHROID 100 MCG PO SCH (05:45)
[2019-12-13] MEDS: solu-MEDROL 40 MG IV SCH (05:45)
[2019-12-13] MEDS: AMARYL 4 MG PO SCH (07:37)
[2019-12-13] MEDS: NovoLOG Insulin SQ PRN ×4 (07:38→21:47)
[2019-12-13] MEDS: PROTONIX 40 MG IV IV SCH (08:38)
[2019-12-13] MEDS: ENOXAPARIN SODIUM SQ SCH (08:39)
[2019-12-13] MEDS: LASIX 20 MG PO SCH (08:39)
[2019-12-13] MEDS: Tessalon Perles 100 MG PO SCH ×3 (08:41→21:44)
--- NOTE | 2019-12-13 09:26 | PCM.NOTE ---
Date and Time: 12/13/19924 Subjective Assessment: Pt is feeling much better today. Slept last night even without ativan. Off O2 since yesterday afternoon. - Review of Systems Constitutional: No Fever Respiratory: Cough Objective Exam General Appearance: no apparent distress, alert, obese Neurologic Exam: oriented x 3, cooperative Skin Exam: normal color, warm, dry, No rash Ears, Nose, Throat Exam: moist mucous membranes Neck Exam: normal inspection Respiratory Exam: normal breath sounds, lungs clear, wheezing (slight scattered) , No crackles/rales, No rhonchi Cardiovascular Exam: regular rate/rhythm, normal heart sounds, No murmur Back Exam: normal inspection, No rash OBJECTIVE DATA Vital Signs: Vital Signs - 24 hr Temp Pulse Resp BP Pulse Ox 12/13/19 07:11 97.7 F 90 20 130/69 96 12/13/19 06:56 84 20 95 12/13/19 04:00 97.4 F 95 H 22 130/65 98 12/13/19 00:00 97.4 F 88 20 123/60 97 12/12/19 20:00 97.7 F 102 H 18 113/70 99 12/12/19 19:55 90 18 97 12/12/19 16:00 97.6 F 82 18 140/36 98 12/12/19 12:00 97.7 F 86 22 135/72 97 Pain Assessment - Last Documented Pain Intensity 0 Pain Scale Used [facility] Intake and Output: Intake & Output 12/10/19 12/11/19 12/12/19 12/13/19 11:59 11:59 11:59 11:59 Intake Total 420 4257 Output Total 350 1800 Balance 70 2457 Weight 103.8 kg Lab Results: Accuchecks Date 12/12/19 Date 12/12/19 Date 12/12/19 Time 21:30 Time 17:23 Time 11:30 Accucheck Value: 277 Accucheck Value: 286 Accucheck Value: 212 Accucheck Value: 259 Lab Results-Last 24 Hours 12/12/19 Range/Units 12:33 Lactic Acid 3.6 H (0.4-2.0) Radiology Exams: Radiology Procedures Category Date Time Status CHEST 2 VIEWS (PA AND LAT) Stat Exams 12/11/19 17:28 Completed Assessment/Plan (1) Pneumonia due to infectious agent Current Visit: Yes Status: Acute Qualifiers: Laterality: right Lung location: lower lobe of lung Qualified Code(s): J18.9 - Pneumonia, unspecified organism Assessment & Plan: On IV unasyn; will decrease her dose today as well as change steroids from IV to po. If still doing well tomorrow will probably d/c to home then. Code(s): J18.9 - PNEUMONIA, UNSPECIFIED ORGANISM (2) Diabetes Current Visit: No Status: Chronic Qualifiers: Diabetes mellitus type: type 2 Diabetes mellitus medical terminologist insulin use: without medical terminologist use Diabetes mellitus complication status: without complication Qualified Code(s): E11.9 - Type 2 diabetes mellitus without complications Code(s): E11.9 - TYPE 2 DIABETES MELLITUS WITHOUT COMPLICATIONS
[2019-12-13] MEDS: Unasyn 1.5GM / NaCl 100ML 1.5 GM/100 ML IVPB IV SCH ×3 (11:32→23:51)
[2019-12-13] MEDS ORDERED: DELTASONE 20 MG PO SCH (12:00)
[2019-12-13] MEDS: Tussionex Pennkinetic Susp PO PRN (15:43)
[2019-12-13] MEDS: Sodium Chloride 0.9% 1000 ML 1,000 ML IV SCH (16:52)
[2019-12-14 04:45] VITALS: O2SAT 98
[2019-12-14] MEDS: Unasyn 1.5GM / NaCl 100ML 1.5 GM/100 ML IVPB IV SCH (05:46)
[2019-12-14] MEDS: SYNTHROID 100 MCG PO SCH (06:02)
[2019-12-14] MEDS: Tussionex Pennkinetic Susp PO PRN (06:09)
[2019-12-14] MEDS: PULMICORT 0.5 MG/2 ML RESPULES IH SCH (07:14)
[2019-12-14 07:35] VITALS: BP 134/76; PULSE 92
[2019-12-14] MEDS: AMARYL 4 MG PO SCH (07:58)
[2019-12-14] MEDS: NovoLOG Insulin SQ PRN (07:59)
--- NOTE | 2019-12-14 08:55 | PCM.DS ---
Discharge Summary Date of Admission: 12/11/19 19:17 Admitting Physician: MAMIE MARCOS Primary Care Provider: MAMIE MARCOS Allergies Allergies albuterol Allergy (Severe, Verified 04/28/15 07:18) Difficulty Breathing resp. distress ciprofloxacin [From Cipro] Allergy (Severe, Verified 12/11/19 17:32) Swelling Sulfa (Sulfonamide Antibiotics) Allergy (Severe, Verified 04/28/15 07:18) Tightness of Throat throat swells flu shot Allergy (Uncoded 01/04/17 02:08) Hospital Summary - Hospital Course Hospital Course: Pt is a 59 yo female pt of mine from [facility] with DM, hypothyroidism, and hx breast ca who came to ER c/o several days of cough and SOB; failed OP abx. She was found to have bilateral pneumonia and admitted for IV antibiotics. She has recovered quickly with abx and IV steroids; not on O2 for over the last 24 hours. I did decrease her unasyn yesterday from 3g IV to 1.5g per dose, and I decreased her steroids to po. She is a little wheezy this morning but overall still feeling good so will d/c to home on augmentin and prednisone. f/u with me in 1 week. - Vitals & Intake/Output Vital Signs: Vital Signs Temperature 98.3 F 12/14/19 07:34 Pulse Rate 92 H 12/14/19 07:34 Respiratory Rate 18 12/14/19 07:34 Blood Pressure 134/76 12/14/19 07:34 O2 Sat by Pulse Oximetry 98 12/14/19 07:34 Intake & Output: Intake & Output 12/11/19 12/12/19 12/13/19 12/14/19 11:59 11:59 11:59 11:59 Intake Total 420 4257 3454 Output Total 350 2500 1700 Balance 70 1757 1754 Weight 103.8 kg 103.8 kg - Lab Result Diagrams: 12/11/19 17:26 12/11/19 17:58 Lab Results-Last 24 Hrs: Accuchecks Date 12/13/19 Time 21:30 Accucheck Value: 206 Accucheck Value: 285 Accucheck Value: 327 Accucheck Value: 270 Micro Results-Entire Visit: Accuchecks Date 12/13/19 Time 21:30 Accucheck Value: 206 Accucheck Value: 285 Accucheck Value: 327 Accucheck Value: 270 - Procedures and Test Procedures and Tests throughout Hospitalization: Therapy Orders & Screens 12/11/19 17:53 Respiratory Therapy Assessment DAILY Comment: 12/11/19 19:22 Oxygen Nasal Cannula 2 lpm Comment: Respiratory Therapy Consult ROUTINE Comment: Reason For Exam: 12/11/19 20:00 Respiratory Therapy Assessment DAILY Comment: 12/13/19 06:56 Peak Expiratory Flow Rate ONCE Comment: Reason For Exam: Diagnosis: Pneumonia Discharge Exam General Appearance: no apparent distress, alert Neurologic Exam: oriented x 3, cooperative Eye Exam: eyes nml inspection Respiratory Exam: lungs clear, diminished breath sounds, wheezing (scattered expiratory wheeze), No crackles/rales, No rhonchi Cardiovascular Exam: regular rate/rhythm, normal heart sounds, No murmur Gastrointestinal/Abdomen Exam: soft, normal bowel sounds, No tenderness Extremity Exam: normal inspection, No pedal edema, No swelling Skin Exam: normal color, warm, dry, No rash Final Diagnosis/Problem List - Final Discharge Diagnosis/Problem (1) Pneumonia due to infectious agent Current Visit: Yes Status: Acute Code(s): J18.9 - PNEUMONIA, UNSPECIFIED ORGANISM (2) Diabetes Current Visit: No Status: Chronic Code(s): E11.9 - TYPE 2 DIABETES MELLITUS WITHOUT COMPLICATIONS - Discharge Disposition: Home, Self-Care Condition: Good Prescriptions: New Amoxicillin/Potassium Clav [Augmentin 875-125 Tablet] 875 mg PO BID #8 tablet Prednisone 20 mg [Deltasone 20 mg] 20 mg PO DAILY #17 tablet Continue Metformin HCl 500 mg PO BID Levothyroxine Sodium 100 mcg PO DAILY Glimepiride 4 mg [Amaryl 4 mg] 4 mg PO DAILY Furosemide 20 mg [Lasix 20 mg] 20 mg PO DAILY Benzonatate 200 mg PO TID Cyanocobalamin 1000 Mcg/ml [Cyanocobalamin B-12 1000 MCG/ML] 1,000 mcg IJ UD Ibuprofen 200 mg [Motrin 200 mg] 400 mg PO Q6H PRN PRN PRN Reason: Pain Discontinued methylPREDNISolone [Methylprednisolone] 4 mg PO UD Azithromycin 250 mg PO UD Follow up with: MAMIE MARCOS [Primary Care Provider] - 1 Week
[2020-01-06] MEDS ORDERED: Cyanocobalamin B-12 1000 MCG/ML IM SCH (10:00)
== END 2019-12-14 09:55 | disposition home or self-care (01) | DRG 195 ==
LOC: ED 17:21 → MED SURG 19:17
PROVIDERS: ADMIT Family Medicine; ATTEND Family Medicine
DX: J18.9 Pneumonia, unspecified organism (principal); E11.9 Type 2 diabetes mellitus without complications; E03.9 Hypothyroidism, unspecified; Z85.3 Personal history of malignant neoplasm of breast; Z79.899 Other long term (current) drug therapy
CPT/HCPCS: 36000; 36415; 71046; 80053; 82962; 83036; 83605; 83880; 85025; 93005; 94150; 94640; 94760; 99285; 99291; J0295; J0696; J1650; J2920; A9270-GY

== ENCOUNTER 2021-04-18 00:45 | Emergency (ER) | payer BC ==
[2021-04-18] MEDS ORDERED: solu-MEDROL 125 MG IV ONE (00:54)
[2021-04-18] MEDS ORDERED: Magnesium 1 Gm / 100 Ml D5W*** 100 ML IV ONE ×2 (01:29→03:32)
[2021-04-18] MEDS ORDERED: solu-MEDROL 125 MG ONE (01:29)
[2021-04-18] MEDS ORDERED: PULMICORT 0.5 MG/2 ML RESPULES IH STA (01:35)
[2021-04-18 01:42] LABS: Absolute Neutrophil Ct (ANC) 2.87 (1.4-6.9); BASOPHIL % 0.6 % (0.0-0.4); Basophil (Absolute #) 0.04 (0-0.4); Eosinophil % 8.9 % (0.00-5.0); Eosinophil (Absolute #) 0.56 (0-0.5); Hematocrit 39.9 % (35-47); Hemoglobin 12.6 gm/dl (12.0-16.0); Lymphocyte (Absolute #) 1.88 (1.0-4.6); Mean Cell Volume 83.6 fl (78-100); Mean Corpuscular Hemoglobin 26.4 pg (26-32); Mean Corpuscular Hgb Concent. 31.6 g/dl (32-36); Mean Platelet Volume 9.6 fl (7.5-11.0); Monocyte (Absolute #) 0.92 (0.0-1.3); Monocytes % 14.7 % (0.0-12.0); Neutrophil % 45.8 % (36.0-66.0); Platelet Count 122 K/mm3 (150-450); Red Blood Count 4.77 M/mm3 (4.1-5.4); Red Cell Distribution Width 16.2 % (11.5-14.0); White Blood Count 6.3 K/mm3 (4.0-10.5)
--- NOTE | 2021-04-18 01:49 | ERPHSYRPT ---
- History of Present Illness Time Seen by Provider: 04/18/21 00:55 Source: patient Exam Limitations: no limitations Patient Subjective Stated Complaint: pt states, "I woke up and I was short of breath". Triage Nursing Assessment: pt c/o sob and has audible wheezes bilat and ant/post. Pt has prod cough, yellow and white, at times. Pt states, "I've had sob and this cough off and on x3 weeks, but it got alot worse tonight". 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 Physician History: Patient is a 60-year-old female presents to our ED with complaints of shortness of breath and wheezing. Symptoms started just prior to arrival. Patient states that she has been experiencing a productive cough for the past 3 weeks. Patient states her symptoms worsened tonight. Patient is not aware of any triggers. 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 Patient has been exposed to sidestream smoke. Patient states that this really irritates her. Otherwise patient denies any triggers. No chest pain. No nausea vomiting or diaphoresis. Symptoms are constant. Symptoms are moderate in intensity. Patient cannot specifically identify any triggers at this time. Patient voices no other complaints concerns at this time. Timing/Duration: today Activities at Onset: rest Severity of Dyspnea-Max: moderate Severity of Dyspnea-Current: mild Possible Cause: occasional episodes Modifying Factors: Improves With: other (Patient is allergic to albuterol.) Associated Symptoms: cough (Cough productive of yellow to white sputum.), productive cough, No calf pain, No heaviness, No heart racing, No leg swelling, No muscle spasms hands, No painful breathing Allergies/Adverse Reactions: albuterol Allergy (Severe, Verified 04/18/21 01:03) Difficulty Breathing resp. distress ciprofloxacin [From Cipro] Allergy (Severe, Verified 04/18/21 01:03) Swelling Sulfa (Sulfonamide Antibiotics) Allergy (Severe, Verified 04/18/21 01:03) Tightness of Throat throat swells flu shot Allergy (Uncoded 04/18/21 01:03) Home Medications: Cyanocobalamin 1000 Mcg/ml [Cyanocobalamin B-12 1000 MCG/ML] 1,000 mcg IJ UD 12/11/19 [History] Glimepiride 4 mg [Amaryl 4 mg] 4 mg PO DAILY 12/11/19 [History] Levothyroxine Sodium 100 mcg PO DAILY 12/11/19 [History] Spironolactone 50 mg PO DAILY 04/18/21 [History] Hx Tetanus, Diphtheria Vaccination/Date Given: Yes Hx Influenza Vaccination/Date Given: No Hx Pneumococcal Vaccination/Date Given: No Immunizations Up to Date: Yes Travel Risk - International Travel Have you traveled outside of the country in past 3 weeks: No - Coronavirus Screening Are you exhibiting any of the following symptoms?: Yes Symptoms: Cough: New Onset, Shortness of Breath Close contact with a COVID-19 positive Pt in past 14-21 Days: No - Vaccine Status Have you recieved a Covid-19 vaccination: Yes 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: Moderna - Vaccination Dates Date of 2cond Vaccination (if applicable): 03/01/21 - Review of Systems Constitutional: No Symptoms, No Fever, No Chills Eyes: No Symptoms Ears, Nose, & Throat: No Symptoms Respiratory: No Symptoms, No Cough, No Dyspnea Cardiac: No Symptoms, No Chest Pain, No Edema, No Syncope Abdominal/Gastrointestinal: No Symptoms, No Abdominal Pain, No Nausea, No Vomiting, No Diarrhea Genitourinary Symptoms: No Symptoms, No Dysuria Musculoskeletal: No Symptoms, No Back Pain, No Neck Pain Skin: No Symptoms, No Rash Neurological: No Symptoms, No Dizziness, No Focal Weakness, No Sensory Changes Psychological: No Symptoms Endocrine: No Symptoms Hematologic/Lymphatic: No Symptoms Immunological/Allergic: No Symptoms All Other Systems: Reviewed and Negative - Past Medical History Pertinent Past Medical History: Yes Neurological History: No Pertinent History ENT History: No Pertinent History Cardiac History: No Pertinent History Respiratory History: Bronchitis, Pneumonia Endocrine Medical History: Diabetes Type II, Hypothyroidism Musculoskeletal History: Arthritis GI Medical History: No Pertinent History History: No Pertinent History Psycho-Social History: No Pertinent History Female Reproductive Disorders: Breast Cancer Other Medical History: Shingles - Past Surgical History Past Surgical History: Yes Neuro Surgical History: No Pertinent History Cardiac: No Pertinent History Respiratory: No Pertinent History Gastrointestinal: No Pertinent History Genitourinary: No Pertinent History Female Surgical History: Hysterectomy, Lumpectomy Other Surgical History: exploratory lap.,right foot tendon, anal fissures - Social History Smoking Status: Never smoker Exposure to second hand smoke: Yes Alcohol Use: None Drug Use: none Patient Lives Alone: No Significant Family History: heart disease, diabetes, hypertension - Nursing Vital Signs Nursing Vital Signs: Initial Vital Signs Pulse Rate 98 H 04/18/21 00:47 Respiratory Rate 22 04/18/21 00:47 Blood Pressure 123/76 04/18/21 00:47 O2 Sat by Pulse Oximetry 96 04/18/21 00:47 Pain Scale Pain Intensity 0 - Physical Exam General Appearance: no apparent distress, alert Eye Exam: PERRL/EOMI Ears, Nose, Throat Exam: hearing grossly normal, normal ENT inspection, normal pharynx Neck Exam: normal inspection, supple Respiratory Exam: wheezing (Expiratory and inspiratory wheezing across all lung charles.) Cardiovascular/Chest Exam: normal heart sounds, regular rate/rhythm Abdominal/Gastrointestinal Exam: soft, No tenderness, No distention, No mass Extremity Exam: non-tender, normal range of motion, normal inspection, no calf tenderness, no pedal edema, No everette's sign, No joint swelling Neurologic Exam: alert, oriented x 3, cooperative, cyber software engineer II-XII nml as tested, sensation nml, No motor deficits Skin Exam: normal color, warm, No dry SpO2 Interpretation: normal SpO2: 97 O2 Delivery: Room Air - Course Nursing assessment & vital signs reviewed: Yes EKG Interpreted by Me: RATE (100), Sinus Tach, NORMAL AXIS, NORMAL INTERVALS - CT Exams Chest CT Interpretation: Tele-radiologist Report (Right upper lobe calcified granuloma, right breast upper lateral quadrant focal skin thickening is with immediately deep focus of fat attenuation with peripherally dense rim nodule. Cirrhosis, splenomegaly, cholelithiasis no PE observed) Ordered Tests: Active Orders 24 hr Category Date Time Status Finishing Inspector STAT Care 04/18/21 01:00 Active EKG-ER Only STAT Care 04/18/21 00:54 Active IV Insertion STAT Care 04/18/21 00:54 Active Pulse Oximetry (ED) STAT Care 04/18/21 00:54 Active CHEST 1 VIEW (PORTABLE) Stat Exams 04/18/21 01:00 Taken CHEST WITH CONTRAST [CT] Stat Exams 04/18/21 02:02 Ordered CBC W DIFF Stat Lab 04/18/21 01:20 Completed CMP Stat Lab 04/18/21 01:20 Completed D-DIMER QUANTITATIVE Stat Lab 04/18/21 01:20 Completed MAGNESIUM Stat Lab 04/18/21 01:20 Completed NT PRO BNP Stat Lab 04/18/21 01:20 Completed TROPONIN Q3H Lab 04/18/21 01:23 Completed TROPONIN Q3H Lab 04/18/21 04:09 Completed TROPONIN Q3H Lab 04/18/21 07:00 Ordered TROPONIN Q3H Lab 04/18/21 10:00 Ordered TROPONIN Q3H Lab 04/18/21 13:00 Ordered UA W/RFX UR CULTURE Stat Lab 04/18/21 01:23 Completed Respiratory Therapy Assessment DAILY RT 04/18/21 02:02 Active Medication Summary Generic Name Dose Route Start Last Admin Trade Name Freq PRN Reason Stop Dose Admin Magnesium Sulfate/Dextrose 100 mls @ 100 mls/hr 04/18/21 01:15 04/18/21 03:33 Magnesium 1 Gm / 100 Ml D5w IV 04/18/21 03:14 100 mls/hr Q1H SHILA Administration Discontinued Medications Generic Name Dose Route Start Last Admin Trade Name Freq PRN Reason Stop Dose Admin Budesonide 0.5 mg 04/18/21 01:35 04/18/21 01:59 Pulmicort 0.5 Mg/2 Ml Respules IH 04/18/21 01:36 0.5 mg ONCE STA Administration Methylprednisolone Sodium Succinate 125 mg 04/18/21 00:54 04/18/21 01:49 Solu-Medrol 125 Mg IV 04/18/21 00:55 125 mg STAT ONE Administration Methylprednisolone Sodium Succinate Confirm 04/18/21 01:29 Solu-Medrol 125 Mg Administered 04/18/21 01:30 Dose 125 mg .ROUTE .STK-MED ONE Lab/Rad Data: Laboratory Result Diagrams 04/18/21 01:20 04/18/21 01:20 Laboratory Results 04/18/21 04/18/21 04/18/21 Range/Units 04:09 01:23 01:23 WBC (4.0-10.5) K/mm3 RBC (4.1-5.4) M/mm3 Hgb (12.0-16.0) gm/dl Hct (35-47) % MCV (78-100) fl MCH (26-32) pg MCHC (32-36) g/dl RDW (11.5-14.0) % Plt Count (150-450) K/mm3 MPV (7.5-11.0) fl Gran % (36.0-66.0) % Eos # (Auto) (0-0.5) Absolute Lymphs (auto) (1.0-4.6) Absolute Monos (auto) (0.0-1.3) Lymphocytes % (24.0-44.0) % Monocytes % (0.0-12.0) % Eosinophils % (0.00-5.0) % Basophils % (0.0-0.4) % Absolute Granulocytes (1.4-6.9) Basophils # (0-0.4) D-Dimer (215-500) ng/mL Sodium (137-145) mmol/L Potassium (3.5-5.1) mmol/L Chloride (98-107) mmol/L Carbon Dioxide (22-30) mmol/L Anion Gap (5-15) MEQ/L BUN (7-17) mg/dL Creatinine (0.52-1.04) mg/dL Estimated GFR ML/MIN Glucose (74-106) mg/dL Calcium (8.4-10.2) mg/dL Magnesium (1.6-2.3) mg/dL Total Bilirubin (0.2-1.3) mg/dL AST (14-36) U/L ALT (0-35) U/L Alkaline Phosphatase (38-126) U/L Troponin I < 0.012 < 0.012 (0.000-0.034) ng/mL NT-Pro-B Natriuret Pep (0-900) pg/mL Serum Total Protein (6.3-8.2) g/dL Albumin (3.5-5.0) g/dL Urine Color STRAW (YELLOW) Urine Appearance CLEAR (CLEAR) Urine pH 7.0 (5-6) Ur Specific [place] 1.004 (1.005-1.025) Urine Protein NEGATIVE (Negative) Urine Ketones NEGATIVE (NEGATIVE) Urine Blood NEGATIVE (0-5) Hari/ul Urine Nitrite NEGATIVE (NEGATIVE) Urine Bilirubin NEGATIVE (NEGATIVE) Urine Urobilinogen NEGATIVE (0-1) mg/dL Ur Leukocyte Esterase NEGATIVE (NEGATIVE) Urine WBC (Auto) 3-5 (0-5) /HPF Urine RBC (Auto) NONE (0-2) /HPF U Epithel Cells (Auto) NONE (FEW) /HPF Urine Bacteria (Auto) NONE (NEGATIVE) /HPF Urine Culture Reflexed NO (NO) Urine Glucose 150 (NEGATIVE) mg/dL 04/18/21 04/18/21 04/18/21 Range/Units 01:20 01:20 01:20 WBC 6.3 (4.0-10.5) K/mm3 RBC 4.77 (4.1-5.4) M/mm3 Hgb 12.6 (12.0-16.0) gm/dl Hct 39.9 (35-47) % MCV 83.6 (78-100) fl MCH 26.4 (26-32) pg MCHC 31.6 L (32-36) g/dl RDW 16.2 H (11.5-14.0) % Plt Count 122 L (150-450) K/mm3 MPV 9.6 (7.5-11.0) fl Gran % 45.8 (36.0-66.0) % Eos # (Auto) 0.56 H (0-0.5) Absolute Lymphs (auto) 1.88 (1.0-4.6) Absolute Monos (auto) 0.92 (0.0-1.3) Lymphocytes % 30.0 (24.0-44.0) % Monocytes % 14.7 H (0.0-12.0) % Eosinophils % 8.9 H (0.00-5.0) % Basophils % 0.6 (0.0-0.4) % Absolute Granulocytes 2.87 (1.4-6.9) Basophils # 0.04 (0-0.4) D-Dimer 823 H* (215-500) ng/mL Sodium 133 L (137-145) mmol/L Potassium 3.9 (3.5-5.1) mmol/L Chloride 101 (98-107) mmol/L Carbon Dioxide 24 (22-30) mmol/L Anion Gap 10.8 (5-15) MEQ/L BUN 8 (7-17) mg/dL Creatinine 0.68 (0.52-1.04) mg/dL Estimated GFR > 60.0 ML/MIN Glucose 295 H (74-106) mg/dL Calcium 9.4 (8.4-10.2) mg/dL Magnesium 2.1 (1.6-2.3) mg/dL Total Bilirubin 1.30 (0.2-1.3) mg/dL AST 53 H (14-36) U/L ALT 29 (0-35) U/L Alkaline Phosphatase 244 H (38-126) U/L Troponin I (0.000-0.034) ng/mL NT-Pro-B Natriuret Pep 63.7 (0-900) pg/mL Serum Total Protein 7.0 (6.3-8.2) g/dL Albumin 3.5 (3.5-5.0) g/dL Urine Color (YELLOW) Urine Appearance (CLEAR) Urine pH (5-6) Ur Specific [place] (1.005-1.025) Urine Protein (Negative) Urine Ketones (NEGATIVE) Urine Blood (0-5) Hari/ul Urine Nitrite (NEGATIVE) Urine Bilirubin (NEGATIVE) Urine Urobilinogen (0-1) mg/dL Ur Leukocyte Esterase (NEGATIVE) Urine WBC (Auto) (0-5) /HPF Urine RBC (Auto) (0-2) /HPF U Epithel Cells (Auto) (FEW) /HPF Urine Bacteria (Auto) (NEGATIVE) /HPF Urine Culture Reflexed (NO) Urine Glucose (NEGATIVE) mg/dL - Progress Progress: improved Air Movement: good Progress Note: Patient reassessed. Wheezing resolved. Shortness of breath resolved. CTA chest negative for PE. Troponin negative x2. Patient requesting discharge. A prescription for prednisone was forwarded to patient's pharmacy. Patient agrees to follow-up with primary care doctor within 48 hours for reevaluation. 04/18/21 04:42 Blood Culture(s) Obtained: No Antibiotics given: No Counseled pt/family regarding: lab results, diagnosis, need for follow-up, rad results - Departure Departure Disposition: Home Clinical Impression: Calcified granuloma of lung, Cirrhosis, Splenomegaly, Cholelithiasis, Lesion of skin of breast, Hyperglycemia, Wheezing, Thrombocytopenia Condition: Stable Critical Care Time: No Referrals: MAMIE GARCIA [Primary Care Provider] - Additional Instructions: Discharge/Care Plan ERROL FERNANDEZ was seen on 04/18/21 in the Emergency Room. The patient was counseled regarding Diagnosis,Lab results, Imaging studies, need for follow up and when to return to the Emergency Room. Prescriptions given: Discharge Note I have spoken with the patient and/or caregivers. I have explained the patient's condition, diagnosis and treatment plan based on the information available to me at this time. I have answered the patient's and/or caregiver's questions and addressed any concerns. The patient and/or caregivers have as good understanding of the patient's diagnosis, condition and treatment plan as can be expected at this point. The vital signs have been stable. The patient's condition is stable and appropriate for discharge from the emergency department. The patient will pursue further outpatient evaluation with the primary care physician or other designated or consulting physician as outlined in the discharge instructions. The patient and/or caregivers are agreeable to this plan of care and follow-up instructions have been explained in detail. The patient and/or caregivers have received these instruction. The patient/and or caregivers are aware that any significant change in condition or worsening of symptoms should prompt an immediate return to this or the closest emergency department or call 911. Prescriptions: Prednisone 10 mg [Deltasone 10 mg] 40 mg PO DAILY 3 Days #12 tablet
[2021-04-18] MEDS: Magnesium 1 Gm / 100 Ml D5W*** 100 ML IV SCH ×2 (01:50→03:33)
[2021-04-18 01:51] LABS: Appearance CLEAR (CLEAR); Bilirubin NEGATIVE (NEGATIVE); Blood NEGATIVE Ery/ul (0-5); Glucose 150 mg/dL (NEGATIVE); Ketones NEGATIVE (NEGATIVE); Leukocyte Esterase NEGATIVE (NEGATIVE); Nitrite NEGATIVE (NEGATIVE); Protein,Urine Dip NEGATIVE (Negative); Specific Gravity 1.004 (1.005-1.025); Urobilinogen NEGATIVE mg/dL (0-1)
[2021-04-18 02:10] LABS: ALBUMIN 3.5 g/dL (3.5-5.0); ALKALINE PHOSPHATASE 244 U/L (38-126); ANION GAP 10.8 MEQ/L (5-15); BLOOD UREA NITROGEN 8 mg/dL (7-17); CHLORIDE 101 mmol/L (98-107); Calcium 9.4 mg/dL (8.4-10.2); Carbon Dioxide 24 mmol/L (22-30); Creatinine 1 0.68 mg/dL (0.52-1.04); EST GLOMERULAR FILTRATION RATE > 60.0 ML/MIN; Glucose 295 mg/dL (74-106); MAGNESIUM 2.1 mg/dL (1.6-2.3); NT PRO BNP 63.7 pg/mL (0-900); Potassium 3.9 mmol/L (3.5-5.1); SGOT/AST 53 U/L (14-36); SGPT/ALT 29 U/L (0-35); SODIUM 133 mmol/L (137-145)
[2021-04-18 03:53] VITALS: O2SAT 97
[2021-04-18 04:37] VITALS: BP 135/80; PULSE 96
--- NOTE | 2021-04-18 09:43 | XRAY ---
Indication: Short of breath. Elevated d-dimer. Multiple contiguous axial images obtained through the chest using 80 cc Isovue 370 contrast and PE protocol. Comparison: None There is good opacification of the pulmonary arteries including lobar and segmental branches. No pulmonary embolus. Heart is not enlarged. Aorta is normal in course and caliber. No pathologic mediastinal/hilar lymphadenopathy. Distal esophagus demonstrates paraesophageal varices. Lungs are inflated with small right upper lobe calcified granuloma. No suspicious pulmonary mass, infiltrate, consolidation, or effusion. Bony thorax intact with minimal degenerative changes throughout the spine. Right breast demonstrates a irregular 2.4 cm noncalcified mass with central fatty attenuation cutaneous retraction. Limited upper abdomen demonstrates cirrhosis, 14 cm splenomegaly, left upper quadrant varices, and numerous gallstones. Impression: 1. Negative pulmonary embolus. No acute cardiopulmonary abnormalities. 2. Suspicious right breast mass as detailed. Correlate with mammography. 3. Numerous gallstones. 4. Incidental cirrhosis, splenomegaly, and distal paraesophageal/left upper quadrant varices. Comment: Preliminary interpretation was made by [facility]. No critical discrepancy.
--- NOTE | 2021-04-18 09:44 | XRAY ---
Indication: Short of breath. Comparison: December 11, 2019. Portable chest demonstrates normal heart and lungs. Bony thorax intact with minimal degenerative changes.
== END 2021-04-18 04:55 | disposition home or self-care (01) ==
LOC: ED 00:45
DX: J84.10 Pulmonary fibrosis, unspecified (principal); K74.60 Unspecified cirrhosis of liver; R16.1 Splenomegaly, not elsewhere classified; K80.20 Calculus of gallbladder without cholecystitis without obstruction; L98.9 Disorder of the skin and subcutaneous tissue, unspecified
CPT/HCPCS: 36000; 36415; 71045; 71260; 80053; 81001; 83735; 83880; 84484; 85025; 85379; 93005; 93041; 94640; 94760; 96374; 96375; 96376; 99285; J2930; J3475

== ENCOUNTER 2023-04-15 17:07 | Observation (INO) | payer BC ==
[2023-04-15] MEDS ORDERED: Atrovent 0.5MG NEBULE IH ONE ×4 (17:46→20:47)
[2023-04-15] MEDS ORDERED: solu-MEDROL 125 MG, Sterile H2O 10 ml 2 ML IV ONE ×2 (17:46)
[2023-04-15] MEDS ORDERED: Sterile H2O 10 ml IJ ONE ×2 (17:51→23:13)
[2023-04-15] MEDS ORDERED: Magnesium 1 Gm / 100 Ml D5W*** 100 ML IV ONE ×2 (17:51→18:31)
[2023-04-15] MEDS ORDERED: solu-MEDROL ONE ×2 (17:51→23:13)
[2023-04-15] MEDS: Magnesium 1 Gm / 100 Ml D5W*** 100 ML IV SCH ×2 (17:52→18:32)
[2023-04-15 17:55] LABS: Absolute Neutrophil Ct (ANC) 2.25 x10^3/uL (1.4-6.9); BASOPHIL % 1.3 % (0.0-0.4); Basophil (Absolute #) 0.06 x10^3/uL (0-0.4); Eosinophil (Absolute #) 0.53 x10^3/uL (0-0.5); Hematocrit 35.5 % (35-47); Hemoglobin 10.7 g/dL (12.0-16.0); IMMATURE GRAN # 0.02 x10^3u/L (0.00-0.03); IMMATURE GRAN % 0.4 % (0.00-0.4); Lymphocyte (Absolute #) 0.96 x10^3/uL (1.0-4.6); Mean Cell Volume 87.4 fL (78-100); Mean Corpuscular Hemoglobin 26.4 pg (26-32); Mean Corpuscular Hgb Concent. 30.1 g/dL (32-36); Mean Platelet Volume 9.2 fL (7.5-11.0); Monocyte (Absolute #) 0.98 x10^3/uL (0.0-1.3); Monocytes % 20.4 % (0.0-12.0); Neutrophil % 46.9 % (36.0-66.0); Platelet Count 94 x10^3/uL (150-450); Red Blood Count 4.06 x10^6/uL (4.1-5.4); Red Cell Distribution Width 15.2 % (11.5-14.0); White Blood Count 4.8 x10^3/uL (4.0-10.5)
[2023-04-15 18:10] LABS: ALBUMIN 3.3 g/dL (3.5-5.0); ALKALINE PHOSPHATASE 178 U/L (38-126); ANION GAP 10.7 MEQ/L (5-15); BLOOD UREA NITROGEN 8 mg/dL (7-17); CHLORIDE 108 mmol/L (98-107); Calcium 8.8 mg/dL (8.4-10.2); Carbon Dioxide 26 mmol/L (22-30); Creatinine 1 0.78 mg/dL (0.52-1.04); EST GLOMERULAR FILTRATION RATE > 60.0 ML/MIN; Glucose 151 mg/dL (74-106); NT PRO BNPII 58.3 pg/mL (<300); SGOT/AST 64 U/L (14-36); SGPT/ALT 33 U/L (0-35); SODIUM 140 mmol/L (137-145); Total Protein 7.2 g/dL (6.3-8.2)
[2023-04-15 18:49] LABS: INFLUENZA A NEGATIVE (NEGATIVE); INFLUENZA B NEGATIVE (NEGATIVE); RESPIRATORY SYNCTIAL VIRUS NEGATIVE (NEGATIVE); SARS-CoV-2 Xpert Express NEGATIVE (NEGATIVE)
--- NOTE | 2023-04-15 20:12 | ERPHSYRPT ---
- History of Present Illness Time Seen by Provider: 04/15/23 17:30 Source: patient Exam Limitations: no limitations Patient Subjective Stated Complaint: pt states I became short of breath in the middle of the night Triage Nursing Assessment: pt came into the er via wheelchair; pt is axo x4; NANWALEK; c/o SOB; expiratory wheezing present in all lobes; intermitten dry hacking cough present; labored breathing present; see assessement; tachycardic; hype rtensive; afebrile Physician History: Patient is a 62-year-old female presents to our ED for evaluation of shortness of breath. Patient has history of asthma. Patient believes the hot weather triggered her asthma. Patient symptoms started yesterday evening and progressed into today. Upon presentation patient was tachypneic. Patient had audible wheezing. Patient was tachycardic as well. Patient advised that she is allergic to albuterol. Patient states albuterol causes her to become apneic. Patient denies chest pain. No nausea vomiting or diaphoresis. Symptoms are progressive. Symptoms are moderate in intensity. No specific worsening improving factors. Patient voices no other complaints or concerns at this time. No history of COPD patient is a non-smoker Portions of this note were created with voice recognition technology. There may be grammatical, spelling, punctuation or sound alike errors Timing/Duration: yesterday Activities at Onset: none Severity of Dyspnea-Max: moderate Severity of Dyspnea-Current: moderate Possible Cause: unknown cause (Patient believes the hot weather triggered her asthma) Modifying Factors: Improves With: nothing Associated Symptoms: cough, wheezing Allergies/Adverse Reactions: albuterol Allergy (Severe, Verified 04/15/23 17:09) Difficulty Breathing resp. distress ciprofloxacin [From Cipro] Allergy (Severe, Verified 04/15/23 17:09) Swelling Sulfa (Sulfonamide Antibiotics) Allergy (Severe, Verified 04/15/23 17:09) Tightness of Throat throat swells flu shot Allergy (Uncoded 04/15/23 17:09) Home Medications: Cyanocobalamin 1000 Mcg/ml [Cyanocobalamin B-12 1000 MCG/ML] 1,000 mcg IJ UD 12/11/19 [History] Glimepiride 4 mg [Amaryl 4 mg] 4 mg PO DAILY 12/11/19 [History] Levothyroxine Sodium 75 mcg PO DAILY 12/11/19 [History] Spironolactone 50 mg PO DAILY 04/18/21 [History] Insulin Lispro [Humalog Kwikpen U-100] 1 unit SQ ACHS 04/15/23 [History] Hx Tetanus, Diphtheria Vaccination/Date Given: Yes Hx Influenza Vaccination/Date Given: No Hx Pneumococcal Vaccination/Date Given: No Travel Risk - International Travel Have you traveled outside of the country in past 3 weeks: No - Coronavirus Screening Are you exhibiting any of the following symptoms?: Yes Symptoms: Cough: New Onset, Headaches/Body Aches/Fatigue - Vaccine Status Have you recieved a Covid-19 vaccination: Yes 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 - Vaccination Dates Date of 2cond Vaccination (if applicable): 03/01/21 - Review of Systems Constitutional: No Symptoms, No Fever, No Chills Eyes: No Symptoms Ears, Nose, & Throat: No Symptoms Respiratory: No Symptoms, No Cough, No Dyspnea Cardiac: No Symptoms, No Chest Pain, No Edema, No Syncope Abdominal/Gastrointestinal: No Symptoms, No Abdominal Pain, No Nausea, No Vomiting, No Diarrhea Genitourinary Symptoms: No Symptoms, No Dysuria Musculoskeletal: No Symptoms, No Back Pain, No Neck Pain Skin: No Symptoms, No Rash Neurological: No Symptoms, No Dizziness, No Focal Weakness, No Sensory Changes Psychological: No Symptoms Endocrine: No Symptoms Hematologic/Lymphatic: No Symptoms Immunological/Allergic: No Symptoms All Other Systems: Reviewed and Negative - Past Medical History Pertinent Past Medical History: Yes Neurological History: No Pertinent History ENT History: No Pertinent History Cardiac History: No Pertinent History Respiratory History: Bronchitis, Pneumonia Endocrine Medical History: Diabetes Type II, Hypothyroidism Musculoskeletal History: Arthritis GI Medical History: No Pertinent History History: No Pertinent History Psycho-Social History: No Pertinent History Female Reproductive Disorders: Breast Cancer Other Medical History: Shingles - Past Surgical History Past Surgical History: Yes Neuro Surgical History: No Pertinent History Cardiac: No Pertinent History Respiratory: No Pertinent History Gastrointestinal: No Pertinent History Genitourinary: No Pertinent History Female Surgical History: Hysterectomy, Lumpectomy Other Surgical History: exploratory lap.,right foot tendon, anal fissures - Social History Smoking Status: Never smoker Exposure to second hand smoke: Yes Alcohol Use: None Drug Use: none Patient Lives Alone: No Significant Family History: heart disease, diabetes, hypertension - Nursing Vital Signs Nursing Vital Signs: Initial Vital Signs Pulse Rate 112 H 04/15/23 17:06 Respiratory Rate 24 04/15/23 17:06 Blood Pressure 153/77 04/15/23 17:06 O2 Sat by Pulse Oximetry 95 04/15/23 17:06 Pain Scale Pain Intensity 7 - Physical Exam General Appearance: moderate distress, alert Eye Exam: PERRL/EOMI Ears, Nose, Throat Exam: hearing grossly normal, normal ENT inspection, normal pharynx Neck Exam: normal inspection, supple, full range of motion Respiratory Exam: respiratory distress, wheezing Cardiovascular/Chest Exam: normal heart sounds, regular rate/rhythm Abdominal/Gastrointestinal Exam: soft, No tenderness, No distention, No mass Extremity Exam: non-tender, normal range of motion, normal inspection, no calf tenderness, no pedal edema Neurologic Exam: alert, oriented x 3, cooperative, 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, sensation nml, No motor deficits Skin Exam: normal color, warm, No dry Lymphatic Exam: No adenopathy SpO2 Interpretation: normal SpO2: 94 O2 Delivery: Room Air - Course Nursing assessment & vital signs reviewed: Yes EKG Interpreted by Me: RATE ([id number]), Sinus Rhythm, Sinus Tach, NORMAL AXIS, NORMAL INTERVALS - CT Exams Chest CT Interpretation: Tele-radiologist Report (Calcified lung granuloma, right breast nodule) Ordered Tests: Active Orders 24 hr Category Date Time Status Resident Athletic Trainer STAT Care 04/15/23 17:46 Active EKG-ER Only STAT Care 04/15/23 17:46 Active IV Insertion STAT Care 04/15/23 17:46 Active Pulse Oximetry (ED) STAT Care 04/15/23 17:46 Active CHEST WITH CONTRAST [CT] Stat Exams 04/15/23 18:23 Completed BLOOD CULTURE Stat Lab 04/15/23 18:05 Received CBC W DIFF Stat Lab 04/15/23 17:20 Completed CMP Stat Lab 04/15/23 17:20 Completed D-DIMER QUANTITATIVE Stat Lab 04/15/23 17:20 Completed NT PRO BNPII Stat Lab 04/15/23 17:20 Completed TROPONIN Q4H Lab 04/15/23 17:20 Completed TROPONIN Q4H Lab 04/15/23 22:00 Ordered TROPONIN Q4H Lab 04/16/23 02:00 Ordered Respiratory Therapy Assessment DAILY RT 04/15/23 18:17 Active Transfer Order Routine Transfer 04/15/23 Ordered Medication Summary Generic Name Dose Route Start Last Admin Trade Name Tiffani PRN Reason Stop Dose Admin Magnesium Sulfate/Dextrose 100 mls @ 100 mls/hr 04/15/23 18:00 04/15/23 18:32 Magnesium 1 Gm / 100 Ml D5w IV 04/15/23 19:59 100 mls/hr Q1H SHILA Administration Discontinued Medications Generic Name Dose Route Start Last Admin Trade Name Tiffani PRN Reason Stop Dose Admin Methylprednisolone Sodium 0 mg 04/15/23 17:46 04/15/23 17:52 Succinate 125 mg/ Sterile IV 04/15/23 17:47 125 mg Water 2 ml STAT ONE Administration Ipratropium [facility] 0.5 mg 04/15/23 17:46 04/15/23 18:16 Ipratropium [facility] 0.5 Mg/Neb IH 04/15/23 17:47 0.5 mg STAT ONE Administration Ipratropium [place] [facility] Confirm 04/15/23 17:58 Ipratropium [facility] 0.5 Mg/Neb Administered 04/15/23 17:59 Dose 0.5 mg IH .STK-MED ONE Ipratropium [place] [facility] 0.5 mg 04/15/23 20:46 04/15/23 20:51 Ipratropium [facility] 0.5 Mg/Neb IH 04/15/23 20:47 0.5 mg STAT ONE Administration Ipratropium [place] [facility] Confirm 04/15/23 20:47 Ipratropium [place] [facility] 0.5 Mg/Neb Administered 04/15/23 20:48 Dose 0.5 mg IH .STK-MED ONE Methylprednisolone Sodium Succinate Confirm 04/15/23 17:51 Methylprednis Sod Succ 125 Mg/2 Ml Vial Administered 04/15/23 17:52 Dose 125 mg .ROUTE .STK-MED ONE Sterile Water Confirm 04/15/23 17:51 Water For Injection,Sterile 10 Ml Vial Administered 04/15/23 17:52 Dose 10 ml IJ .STK-MED ONE Lab/Rad Data: Laboratory Result Diagrams 04/15/23 17:20 04/15/23 17:20 Laboratory Results 04/15/23 04/15/23 04/15/23 Range/Units 18:05 17:20 17:20 WBC (4.0-10.5) x10^3/uL RBC (4.1-5.4) x10^6/uL Hgb (12.0-16.0) g/dL Hct (35-47) % MCV (78-100) fL MCH (26-32) pg MCHC (32-36) g/dL RDW (11.5-14.0) % Plt Count (150-450) x10^3/uL MPV (7.5-11.0) fL Gran % (36.0-66.0) % Immature Gran % (Auto) (0.00-0.4) % Nucleat RBC Rel Count (0.00-0.1) % Eos # (Auto) (0-0.5) x10^3/uL Immature Gran # (Auto) (0.00-0.03) x10^3u/L Absolute Lymphs (auto) (1.0-4.6) x10^3/uL Absolute Monos (auto) (0.0-1.3) x10^3/uL Absolute Nucleated RBC (0.00-0.01) x10^3u/L Lymphocytes % (24.0-44.0) % Monocytes % (0.0-12.0) % Eosinophils % (0.00-5.0) % Basophils % (0.0-0.4) % Absolute Granulocytes (1.4-6.9) x10^3/uL Basophils # (0-0.4) x10^3/uL D-Dimer 1.82 H* (0.0-0.50) mg/L Sodium (137-145) mmol/L Potassium (3.5-5.1) mmol/L Chloride (98-107) mmol/L Carbon Dioxide (22-30) mmol/L Anion Gap (5-15) MEQ/L BUN (7-17) mg/dL Creatinine (0.52-1.04) mg/dL Estimated GFR ML/MIN Glucose (74-106) mg/dL Calcium (8.4-10.2) mg/dL Total Bilirubin (0.2-1.3) mg/dL AST (14-36) U/L ALT (0-35) U/L Alkaline Phosphatase (38-126) U/L Troponin I < 0.012 (0.000-0.034) ng/mL NT-Pro-B Natriuret Pep (<300) pg/mL Serum Total Protein (6.3-8.2) g/dL Albumin (3.5-5.0) g/dL Influenza Type A Ag NEGATIVE (NEGATIVE) Influenza Type B Ag NEGATIVE (NEGATIVE) RSV (PCR) NEGATIVE (NEGATIVE) SARS-CoV-2 (PCR) NEGATIVE (NEGATIVE) Slides for Path Review 04/15/23 04/15/23 Range/Units 17:20 17:20 WBC 4.8 (4.0-10.5) x10^3/uL RBC 4.06 L (4.1-5.4) x10^6/uL Hgb 10.7 L (12.0-16.0) g/dL Hct 35.5 (35-47) % MCV 87.4 (78-100) fL MCH 26.4 (26-32) pg MCHC 30.1 L (32-36) g/dL RDW 15.2 H (11.5-14.0) % Plt Count 94 L (150-450) x10^3/uL MPV 9.2 (7.5-11.0) fL Gran % 46.9 (36.0-66.0) % Immature Gran % (Auto) 0.4 (0.00-0.4) % Nucleat RBC Rel Count 0.0 (0.00-0.1) % Eos # (Auto) 0.53 H (0-0.5) x10^3/uL Immature Gran # (Auto) 0.02 (0.00-0.03) x10^3u/L Absolute Lymphs (auto) 0.96 L (1.0-4.6) x10^3/uL Absolute Monos (auto) 0.98 (0.0-1.3) x10^3/uL Absolute Nucleated RBC 0.00 (0.00-0.01) x10^3u/L Lymphocytes % 20.0 L (24.0-44.0) % Monocytes % 20.4 H (0.0-12.0) % Eosinophils % 11.0 H (0.00-5.0) % Basophils % 1.3 (0.0-0.4) % Absolute Granulocytes 2.25 (1.4-6.9) x10^3/uL Basophils # 0.06 (0-0.4) x10^3/uL D-Dimer (0.0-0.50) mg/L Sodium 140 (137-145) mmol/L Potassium 4.0 (3.5-5.1) mmol/L Chloride 108 H (98-107) mmol/L Carbon Dioxide 26 (22-30) mmol/L Anion Gap 10.7 (5-15) MEQ/L BUN 8 (7-17) mg/dL Creatinine 0.78 (0.52-1.04) mg/dL Estimated GFR > 60.0 ML/MIN Glucose 151 H (74-106) mg/dL Calcium 8.8 (8.4-10.2) mg/dL Total Bilirubin 2.30 H (0.2-1.3) mg/dL AST 64 H (14-36) U/L ALT 33 (0-35) U/L Alkaline Phosphatase 178 H (38-126) U/L Troponin I (0.000-0.034) ng/mL NT-Pro-B Natriuret Pep 58.3 (<300) pg/mL Serum Total Protein 7.2 (6.3-8.2) g/dL Albumin 3.3 L (3.5-5.0) g/dL Influenza Type A Ag (NEGATIVE) Influenza Type B Ag (NEGATIVE) RSV (PCR) (NEGATIVE) SARS-CoV-2 (PCR) (NEGATIVE) Slides for Path Review YES - Progress Progress: improved Air Movement: fair Progress Note: We advised patient hospitalization. Patient ambulated in our ED patient was hypoxic and tachypneic with exertion. Patient does not meet discharge criteria. Patient refused admission. Patient that she has to go home. Patient states she would leave AMA. Patient is of sound mind. Patient is appropriate to make informed and independent medical decisions. Patient understands that leaving AGAINST MEDICAL ADVICE can result in delayed diagnosis, increased risk of morbidity, mortality, short and long-term disability including . In spite of these risks, patient has decided to leave AGAINST MEDICAL ADVICE. Patient understands that she may return to our ED at any point if she reconsiders. Patient agrees to follow-up with her primary care doctor within 48 hours for reevaluation. Patient voices no other complaints or concerns at this time. We will release patient AGAINST MEDICAL ADVICE per their request. Patient is a 62-year-old female with history of asthma presents to our ED with an asthma exacerbation. Patient was in respiratory distress upon arrival. Audible wheezing labored breathing. EKG reveals sinus tachycardia. Testing including D-dimer. D-dimer positive. CTA chest ordered and completed. CTA chest reveals a calcified lung granuloma as well as a right breast nodule. Patient understands that a follow-up with mammogram or ultrasound is indicated. Patient states she has a history of breast cancer and currently has a follow-up appointment with her doctor to obtain an outpatient mammogram. CMP is unremarkable. CBC reveals a normocytic anemia. Total bilirubin elevated. COVID test negative. D-dimer positive. BNP negative. Troponin negative. Patient received magnesium 2 g, Atrovent. Albuterol was not administered as patient has an allergy to albuterol. Patient states albuterol makes her apneic. Solu-Medrol 125 mg administered as well. Complexity of problem addressed is high. Severe exacerbation threatening bodily function. Critical care time Complexity of data reviewed and analyzed is moderate. Test ordered test reviewed and analyzed including EKG laboratory test. Served as independent historian. Risk of complication and or risk morbidity/mortality of patient management is moderate. A prescription for prednisone forwarded to patient's pharmacy. She will leave AGAINST MEDICAL ADVICE. Patient states that she will not stay in the hospital but does not provide a specific reason why. Patient agrees to follow-up regarding her breast nodule. Patient also agrees to follow-up with her primary care doctor within 48 hours for reevaluation. Portions of this note were created with voice recognition technology. There may be grammatical, spelling, punctuation or sound alike errors 04/15/23 20:56 Patient's primary care doctor no longer practices at our facility. Patient given a referral to Dr. Raegan. Additionally a prescription for EpiPen was provided to patient in the event that patient had a severe allergic reaction or inability to breathe. 04/15/23 21:02 Update, patient now desatting to stay for admission. Patient is no longer going to leave AMA 04/15/23 21:[address] Reagan at 10:[address] Reagan excepts admission to observation. Plan of care discussed with patient. She agrees to admission [facility] for further evaluation and treatment. Portions of this note were created with voice recognition technology. There may be grammatical, spelling, punctuation or sound alike errors 04/15/23 22:21 Blood Culture(s) Obtained: Yes Antibiotics given: No Counseled pt/family regarding: lab results, diagnosis, need for follow-up, rad results - Departure Departure Disposition: Observation Clinical Impression: Asthma exacerbation, Tachycardia, Respiratory distress, Calcified granuloma of lung, Total bilirubin, elevated, Right breast nodule Condition: Stable Critical Care Time: No Referrals: MAMIE GRIFFIN [Primary Care Provider] - Follow up/PCP as directed LOC REAGAN MD [ACTIVE STAFF] - Follow up/PCP as directed Additional Instructions: A right breast nodule was observed on your CAT scan. You will require mammogram or follow-up ultrasound to further investigate this right lung nodule. Discharge/Care Plan ERROL FERNANDEZ was seen on 04/15/23 in the Emergency Room. The patient was counseled regarding Diagnosis,Lab results, Imaging studies, need for follow up and when to return to the Emergency Room. Prescriptions given: Discharge Note I have spoken with the patient and/or caregivers. I have explained the patient's condition, diagnosis and treatment plan based on the information available to me at this time. I have answered the patient's and/or caregiver's questions and addressed any concerns. The patient and/or caregivers have as good understanding of the patient's diagnosis, condition and treatment plan as can be expected at this point. The vital signs have been stable. The patient's condition is stable and appropriate for discharge from the emergency department. The patient will pursue further outpatient evaluation with the primary care physician or other designated or consulting physician as outlined in the discharge instructions. The patient and/or caregivers are agreeable to this plan of care and follow-up instructions have been explained in detail. The patient and/or caregivers have received these instruction. The patient/and or caregivers are aware that any significant change in condition or worsening of symptoms should prompt an immediate return to this or the closest emergency department or call 911. Prescriptions: Prednisone 10 mg [Deltasone 10 mg] 40 mg PO DAILY 3 Days #12 tablet EPINEPHrine [Epipen 0.3 MG] 0.3 mg IJ DAILY 1 Days #2 units
--- NOTE | 2023-04-15 20:26 | XRAY ---
CLINICAL HISTORY:Shortness of breath. Elevated D-dimer. To rule out pulmonary embolism; COMPARISON:CT dated 04/17/2021; TECHNIQUES:Axial CTA images of the chest with intravenous contrast using a pulmonary embolism protocol was performed. MIP-rendered reformations in coronal and sagittal planes were performed, reconstructed, and reviewed; FINDINGS: IMPRESSION: Negative study for pulmonary embolism. Calcified granuloma in the right lung. Right breast nodule. Further evaluation with MG and US is recommended. No significant interval changes when compared with prior study. Electronically Signed by: Katherine Tamayo MD. (04/15/2023 19:22:49 TRAIN CALLER;)
[2023-04-15 21:44] LABS: Slide Review 1 YES
[2023-04-16] MEDS: solu-MEDROL 60 MG, Sterile H2O 10 ml 2 ML IV SCH ×6 (00:21→11:41)
[2023-04-16 03:04] LABS: Hematocrit 36.8 % (35-47); Hemoglobin 11.1 g/dL (12.0-16.0); Mean Corpuscular Hemoglobin 26.6 pg (26-32); Mean Corpuscular Hgb Concent. 30.2 g/dL (32-36); Mean Platelet Volume 9.7 fL (7.5-11.0); Platelet Count 81 x10^3/uL (150-450); Red Blood Count 4.18 x10^6/uL (4.1-5.4); Red Cell Distribution Width 15.3 % (11.5-14.0); White Blood Count 4.7 x10^3/uL (4.0-10.5)
[2023-04-16 03:09] LABS: ALBUMIN 3.4 g/dL (3.5-5.0); ALKALINE PHOSPHATASE 179 U/L (38-126); ANION GAP 14.3 MEQ/L (5-15); BLOOD UREA NITROGEN 14 mg/dL (7-17); CHLORIDE 105 mmol/L (98-107); Calcium 8.6 mg/dL (8.4-10.2); Carbon Dioxide 19 mmol/L (22-30); Creatinine 1 0.75 mg/dL (0.52-1.04); EST GLOMERULAR FILTRATION RATE > 60.0 ML/MIN; Glucose 370 mg/dL (74-106); Potassium 4.8 mmol/L (3.5-5.1); SGOT/AST 68 U/L (14-36); SGPT/ALT 36 U/L (0-35); SODIUM 134 mmol/L (137-145); Total Protein 7.5 g/dL (6.3-8.2)
[2023-04-16] MEDS ORDERED: Sterile H2O 10 ml IJ ONE (05:31)
[2023-04-16] MEDS ORDERED: solu-MEDROL ONE (05:31)
[2023-04-16] MEDS ORDERED: Atrovent 0.5MG NEBULE IH ONE (05:42)
[2023-04-16] MEDS: Atrovent 0.5MG NEBULE IH SCH ×2 (05:44→11:28)
[2023-04-16] MEDS ORDERED: AMARYL 4 MG PO SCH (08:00)
[2023-04-16] MEDS: HUMALOG SQ PRN ×2 (08:12→11:41)
[2023-04-16 11:51] VITALS: BP 165/77; PULSE 89; O2SAT 93
[2023-04-16] MEDS ORDERED: Aldactone 25 MG PO SCH (12:00)
[2023-04-16] MEDS ORDERED: SYNTHROID 75 MCG PO SCH (12:00)
--- NOTE | 2023-04-16 15:00 | PCM.HP ---
History of Present Illness - Chief Complaint Chief Complaint: SOB AsthmaExacerbation. Date: 04/16/23 History of Present Illness: is a 62 year old female who presented to the hospital with dyspnea that began in the middle of the night. She has a prior history of asthma, affected by weather pattern changes, and a history of an unspecified reaction to albuterol (reported apnea, though the patient does not clearly describe the particular reaction in the past because she states that she was encephalopathic at the time). She had associated cough (nonproductive). Denied fevers, chills and chest pain. The patient was noted to have tachycardia. The patient was admitted for treatment with steroids and bromide. The patient was seen and examined via telemedicine. The entirety of this encounter was performed via telemedicine. The patient consented to this tel emedicine encounter. - Review of Systems Constitutional: No Symptoms Eyes: No Symptoms Ears, Nose, & Throat: No Symptoms Respiratory: Cough, Short Of Breath, Wheezing Cardiac: No Symptoms Abdominal/Gastrointestinal: No Symptoms Genitourinary Symptoms: No Symptoms Musculoskeletal: No Symptoms Skin: No Symptoms Neurological: No Symptoms Psychological: No Symptoms Endocrine: No Symptoms Hematologic/Lymphatic: No Symptoms Immunological/Allergic: No Symptoms All Other Systems: Reviewed and Negative Medications & Allergies Home Medications: Home Medication List Cyanocobalamin 1000 Mcg/ml [Cyanocobalamin B-12 1000 MCG/ML] 1,000 mcg IJ UD 12/11/19 [History Confirmed 04/15/23] Glimepiride 4 mg [Amaryl 4 mg] 4 mg PO DAILY 12/11/19 [History Confirmed 04/15/23] Levothyroxine Sodium 75 mcg PO DAILY 12/11/19 [History Confirmed 04/15/23] Spironolactone 50 mg PO DAILY 04/18/21 [History Confirmed 04/15/23] EPINEPHrine [Epipen 0.3 MG] 0.3 mg IJ DAILY 1 Days #2 units 04/15/23 [Rx] Insulin Lispro [Humalog Kwikpen U-100] See Rx Instructions .ROUTE .COMPLEX PRN 04/15/23 [History Confirmed 04/15/23] Methylprednisolone Packet [Medrol Dosepack] 4 mg PO UD #30 packet 04/16/23 [Rx] Allergies/Adverse Reactions: Allergies Allergy/AdvReac Type Severity Reaction Status Date / Time albuterol Allergy Severe Difficulty Verified 04/15/23 17:09 Breathing ciprofloxacin [From Cipro] Allergy Severe Swelling Verified 04/15/23 17:09 Sulfa (Sulfonamide Allergy Severe Tightness Verified 04/15/23 17:09 Antibiotics) of Throat flu shot Allergy Uncoded 04/15/23 17:09 - Past Medical History Past Medical History: Yes Neurological History: No Pertinent History ENT History: No Pertinent History Cardiac History: No Pertinent History Respiratory History: Asthma Endocrine Medical History: Diabetes Type II, Hypothyroidism Musculoskelatal History: No Pertinent History GI Medical History: Gallbladder Disease History: No Pertinent History Pyscho-Social History: No Pertinent History Reproductive Disorders: Breast Cancer Comment: Shingles - Female History Are you now?: No - Past Surgical History Past Surgical History: Yes Neuro Surgical History: No Pertinent History Cardiac History: No Pertinent History Respiratory Surgery: No Pertinent History GI Surgical History: Hemorrhoidectomy Genitourinary Surgical Hx: No Pertinent History Musculskeletal Surgical Hx: No Pertinent History Female Surgical History: Hysterectomy, Lumpectomy Other Surgical History: exploratory lap.,right foot tendon, anal fissures - Social History Smoking Status: Never smoker Exposure to second hand smoke: No Alcohol: None Drug Use: none Significant Family History: heart disease, diabetes, hypertension - Physical Exam Vital Signs: Vital Signs - 24 hr Temp Pulse Resp BP BP Pulse Ox 04/16/23 11:51 98.7 F 89 18 165/77 93 L 04/16/23 11:28 87 18 94 L 04/16/23 07:07 98.7 F 87 18 139/77 92 L 04/16/23 06:02 95 04/16/23 05:45 86 22 95 04/16/23 04:00 97.2 F 84 24 142/71 95 04/16/23 00:29 97 H 20 94 L 04/16/23 00:00 97.8 F 95 H 20 135/75 94 L 04/15/23 23:50 97.8 F 95 H 20 135/75 94 L 04/15/23 22:22 94 L 04/15/23 22:00 104 H 18 141/95 93 L 04/15/23 21:00 104 H 150/100 93 L 04/15/23 20:51 106 H 18 92 L 04/15/23 20:39 105 H 175/108 94 L 04/15/23 20:38 107 H 90 L 04/15/23 19:00 108 H 153/73 94 L 04/15/23 18:17 109 H 19 94 L 04/15/23 18:02 109 H 22 136/71 95 04/15/23 18:01 108 H 19 94 L 04/15/23 17:56 94 L 04/15/23 17:13 97.2 F 117 H 28 H 153/77 94 L 04/15/23 17:06 112 H 24 153/77 95 General Appearance: no apparent distress Neurologic Exam: alert, oriented x 3 Eye Exam: PERRL/EOMI, eyes nml inspection Ears, Nose, Throat Exam: normal ENT inspection Neck Exam: normal inspection Respiratory Exam: normal breath sounds Cardiovascular Exam: regular rate/rhythm, normal heart sounds, normal peripheral pulses Gastrointestinal/Abdomen Exam: soft, normal bowel sounds Extremity Exam: normal inspection, normal range of motion Results - Labs Lab/Micro Results: Lab Results-Last 24 Hours 04/15/23 04/15/23 04/15/23 Range/Units 17:20 17:20 17:20 WBC 4.8 (4.0-10.5) x10^3/uL RBC 4.06 L (4.1-5.4) x10^6/uL Hgb 10.7 L (12.0-16.0) g/dL Hct 35.5 (35-47) % MCV 87.4 (78-100) fL MCH 26.4 (26-32) pg MCHC 30.1 L (32-36) g/dL RDW 15.2 H (11.5-14.0) % Plt Count 94 L (150-450) x10^3/uL MPV 9.2 (7.5-11.0) fL Gran % 46.9 (36.0-66.0) % Immature Gran % (Auto) 0.4 (0.00-0.4) % Nucleat RBC Rel Count 0.0 (0.00-0.1) % Eos # (Auto) 0.53 H (0-0.5) x10^3/uL Immature Gran # (Auto) 0.02 (0.00-0.03) x10^3u/L Absolute Lymphs (auto) 0.96 L (1.0-4.6) x10^3/uL Absolute Monos (auto) 0.98 (0.0-1.3) x10^3/uL Absolute Nucleated RBC 0.00 (0.00-0.01) x10^3u/L Lymphocytes % 20.0 L (24.0-44.0) % Monocytes % 20.4 H (0.0-12.0) % Eosinophils % 11.0 H (0.00-5.0) % Basophils % 1.3 (0.0-0.4) % Absolute Granulocytes 2.25 (1.4-6.9) x10^3/uL Basophils # 0.06 (0-0.4) x10^3/uL D-Dimer 1.82 H* (0.0-0.50) mg/L Sodium 140 (137-145) mmol/L Potassium 4.0 (3.5-5.1) mmol/L Chloride 108 H (98-107) mmol/L Carbon Dioxide 26 (22-30) mmol/L Anion Gap 10.7 (5-15) MEQ/L BUN 8 (7-17) mg/dL Creatinine 0.78 (0.52-1.04) mg/dL Estimated GFR > 60.0 ML/MIN Glucose 151 H (74-106) mg/dL POC Glucometer (74 to 106) mg/dL Calcium 8.8 (8.4-10.2) mg/dL Total Bilirubin 2.30 H (0.2-1.3) mg/dL AST 64 H (14-36) U/L ALT 33 (0-35) U/L Alkaline Phosphatase 178 H (38-126) U/L Troponin I (0.000-0.034) ng/mL NT-Pro-B Natriuret Pep 58.3 (<300) pg/mL Serum Total Protein 7.2 (6.3-8.2) g/dL Albumin 3.3 L (3.5-5.0) g/dL Influenza Type A Ag (NEGATIVE) Influenza Type B Ag (NEGATIVE) RSV (PCR) (NEGATIVE) SARS-CoV-2 (PCR) (NEGATIVE) Slides for Path Review YES 04/15/23 04/15/23 04/15/23 Range/Units 17:20 18:05 22:30 WBC (4.0-10.5) x10^3/uL RBC (4.1-5.4) x10^6/uL Hgb (12.0-16.0) g/dL Hct (35-47) % MCV (78-100) fL MCH (26-32) pg MCHC (32-36) g/dL RDW (11.5-14.0) % Plt Count (150-450) x10^3/uL MPV (7.5-11.0) fL Gran % (36.0-66.0) % Immature Gran % (Auto) (0.00-0.4) % Nucleat RBC Rel Count (0.00-0.1) % Eos # (Auto) (0-0.5) x10^3/uL Immature Gran # (Auto) (0.00-0.03) x10^3u/L Absolute Lymphs (auto) (1.0-4.6) x10^3/uL Absolute Monos (auto) (0.0-1.3) x10^3/uL Absolute Nucleated RBC (0.00-0.01) x10^3u/L Lymphocytes % (24.0-44.0) % Monocytes % (0.0-12.0) % Eosinophils % (0.00-5.0) % Basophils % (0.0-0.4) % Absolute Granulocytes (1.4-6.9) x10^3/uL Basophils # (0-0.4) x10^3/uL D-Dimer (0.0-0.50) mg/L Sodium (137-145) mmol/L Potassium (3.5-5.1) mmol/L Chloride (98-107) mmol/L Carbon Dioxide (22-30) mmol/L Anion Gap (5-15) MEQ/L BUN (7-17) mg/dL Creatinine (0.52-1.04) mg/dL Estimated GFR ML/MIN Glucose (74-106) mg/dL POC Glucometer (74 to 106) mg/dL Calcium (8.4-10.2) mg/dL Total Bilirubin (0.2-1.3) mg/dL AST (14-36) U/L ALT (0-35) U/L Alkaline Phosphatase (38-126) U/L Troponin I < 0.012 0.013 (0.000-0.034) ng/mL NT-Pro-B Natriuret Pep (<300) pg/mL Serum Total Protein (6.3-8.2) g/dL Albumin (3.5-5.0) g/dL Influenza Type A Ag NEGATIVE (NEGATIVE) Influenza Type B Ag NEGATIVE (NEGATIVE) RSV (PCR) NEGATIVE (NEGATIVE) SARS-CoV-2 (PCR) NEGATIVE (NEGATIVE) Slides for Path Review 04/16/23 04/16/23 04/16/23 Range/Units 02:48 02:48 02:48 WBC 4.7 (4.0-10.5) x10^3/uL RBC 4.18 (4.1-5.4) x10^6/uL Hgb 11.1 L (12.0-16.0) g/dL Hct 36.8 (35-47) % MCV 88.0 (78-100) fL MCH 26.6 (26-32) pg MCHC 30.2 L (32-36) g/dL RDW 15.3 H (11.5-14.0) % Plt Count 81 L (150-450) x10^3/uL MPV 9.7 (7.5-11.0) fL Gran % (36.0-66.0) % Immature Gran % (Auto) (0.00-0.4) % Nucleat RBC Rel Count (0.00-0.1) % Eos # (Auto) (0-0.5) x10^3/uL Immature Gran # (Auto) (0.00-0.03) x10^3u/L Absolute Lymphs (auto) (1.0-4.6) x10^3/uL Absolute Monos (auto) (0.0-1.3) x10^3/uL Absolute Nucleated RBC (0.00-0.01) x10^3u/L Lymphocytes % (24.0-44.0) % Monocytes % (0.0-12.0) % Eosinophils % (0.00-5.0) % Basophils % (0.0-0.4) % Absolute Granulocytes (1.4-6.9) x10^3/uL Basophils # (0-0.4) x10^3/uL D-Dimer (0.0-0.50) mg/L Sodium 134 L (137-145) mmol/L Potassium 4.8 (3.5-5.1) mmol/L Chloride 105 (98-107) mmol/L Carbon Dioxide 19 L (22-30) mmol/L Anion Gap 14.3 (5-15) MEQ/L BUN 14 (7-17) mg/dL Creatinine 0.75 (0.52-1.04) mg/dL Estimated GFR > 60.0 ML/MIN Glucose 370 H (74-106) mg/dL POC Glucometer (74 to 106) mg/dL Calcium 8.6 (8.4-10.2) mg/dL Total Bilirubin 3.10 H (0.2-1.3) mg/dL AST 68 H (14-36) U/L ALT 36 H (0-35) U/L Alkaline Phosphatase 179 H (38-126) U/L Troponin I 0.012 (0.000-0.034) ng/mL NT-Pro-B Natriuret Pep (<300) pg/mL Serum Total Protein 7.5 (6.3-8.2) g/dL Albumin 3.4 L (3.5-5.0) g/dL Influenza Type A Ag (NEGATIVE) Influenza Type B Ag (NEGATIVE) RSV (PCR) (NEGATIVE) SARS-CoV-2 (PCR) (NEGATIVE) Slides for Path Review 04/16/23 04/16/23 Range/Units 06:43 11:15 WBC (4.0-10.5) x10^3/uL RBC (4.1-5.4) x10^6/uL Hgb (12.0-16.0) g/dL Hct (35-47) % MCV (78-100) fL MCH (26-32) pg MCHC (32-36) g/dL RDW (11.5-14.0) % Plt Count (150-450) x10^3/uL MPV (7.5-11.0) fL Gran % (36.0-66.0) % Immature Gran % (Auto) (0.00-0.4) % Nucleat RBC Rel Count (0.00-0.1) % Eos # (Auto) (0-0.5) x10^3/uL Immature Gran # (Auto) (0.00-0.03) x10^3u/L Absolute Lymphs (auto) (1.0-4.6) x10^3/uL Absolute Monos (auto) (0.0-1.3) x10^3/uL Absolute Nucleated RBC (0.00-0.01) x10^3u/L Lymphocytes % (24.0-44.0) % Monocytes % (0.0-12.0) % Eosinophils % (0.00-5.0) % Basophils % (0.0-0.4) % Absolute Granulocytes (1.4-6.9) x10^3/uL Basophils # (0-0.4) x10^3/uL D-Dimer (0.0-0.50) mg/L Sodium (137-145) mmol/L Potassium (3.5-5.1) mmol/L Chloride (98-107) mmol/L Carbon Dioxide (22-30) mmol/L Anion Gap (5-15) MEQ/L BUN (7-17) mg/dL Creatinine (0.52-1.04) mg/dL Estimated GFR ML/MIN Glucose (74-106) mg/dL POC Glucometer 319 H 295 H (74 to 106) mg/dL Calcium (8.4-10.2) mg/dL Total Bilirubin (0.2-1.3) mg/dL AST (14-36) U/L ALT (0-35) U/L Alkaline Phosphatase (38-126) U/L Troponin I (0.000-0.034) ng/mL NT-Pro-B Natriuret Pep (<300) pg/mL Serum Total Protein (6.3-8.2) g/dL Albumin (3.5-5.0) g/dL Influenza Type A Ag (NEGATIVE) Influenza Type B Ag (NEGATIVE) RSV (PCR) (NEGATIVE) SARS-CoV-2 (PCR) (NEGATIVE) Slides for Path Review - Radiology Impressions Radiology Exams & Impressions: Radiology Procedures Category Date Time Status CHEST WITH CONTRAST [CT] Stat Exams 04/15/23 18:23 Completed - Other Procedures and Tests Respiratory Therapy 04/15/23 18:17 Respiratory Therapy Assessment DAILY Assessment/Plan (1) Asthma exacerbation Current Visit: Yes Status: Acute Assessment & Plan: treatment with bromide and steroids. Improving significantly. Code(s): J45.901 - UNSPECIFIED ASTHMA WITH (ACUTE) EXACERBATION (2) Respiratory distress Current Visit: Yes Status: Acute Assessment & Plan: Improved. Due to acute bronchospasm. Code(s): R06.03 - ACUTE RESPIRATORY DISTRESS (3) Tachycardia Current Visit: Yes Status: Acute Assessment & Plan: Improved Code(s): R00.0 - TACHYCARDIA, UNSPECIFIED Telemedicine Encounter - Telemedicine Encounter Telemedicine Encounter: The entirety of this encounter was performed via Telemedicine"
--- NOTE | 2023-04-16 15:08 | PCM.DS ---
Discharge Summary Date of Admission: 04/15/23 23:03 Admitting Physician: LOC REAGAN Primary Care Provider: MAMIE GRIFFIN Allergies Allergies albuterol Allergy (Severe, Verified 04/15/23 17:09) Difficulty Breathing resp. distress ciprofloxacin [From Cipro] Allergy (Severe, Verified 04/15/23 17:09) Swelling Sulfa (Sulfonamide Antibiotics) Allergy (Severe, Verified 04/15/23 17:09) Tightness of Throat throat swells flu shot Allergy (Uncoded 04/15/23 17:09) Hospital Summary - Hospital Course Hospital Course: Presented with bronchospasm. Resolved on exam. Feels better and will be discharged. Reports significant reaction to Albuterol so will send with Rx for prn Xopenex instead. Will also prescribe a medrol dose pack. May benefit from referral to pulmonology by PCP. The patient was seen and examined via telemedicine. The entirety of this encounter was performed via telemedicine. The patient consented to this telemedicine encounter. - Vitals & Intake/Output Vital Signs: Vital Signs Temperature 98.7 F 04/16/23 11:51 Pulse Rate 89 04/16/23 11:51 Respiratory Rate 18 04/16/23 11:51 Blood Pressure 165/77 04/16/23 11:51 O2 Sat by Pulse Oximetry 93 L 04/16/23 11:51 Intake & Output: Intake & Output 04/14/23 04/15/23 04/16/23 04/17/23 11:59 11:59 11:59 11:59 Intake Total 600 Balance 600 Weight 104.8 kg - Lab Result Diagrams: 04/16/23 02:48 04/16/23 02:48 Lab Results-Last 24 Hrs: Lab Results-Last 24 Hours 04/15/23 04/15/23 04/15/23 Range/Units 17:20 17:20 17:20 WBC 4.8 (4.0-10.5) x10^3/uL RBC 4.06 L (4.1-5.4) x10^6/uL Hgb 10.7 L (12.0-16.0) g/dL Hct 35.5 (35-47) % MCV 87.4 (78-100) fL MCH 26.4 (26-32) pg MCHC 30.1 L (32-36) g/dL RDW 15.2 H (11.5-14.0) % Plt Count 94 L (150-450) x10^3/uL MPV 9.2 (7.5-11.0) fL Gran % 46.9 (36.0-66.0) % Immature Gran % (Auto) 0.4 (0.00-0.4) % Nucleat RBC Rel Count 0.0 (0.00-0.1) % Eos # (Auto) 0.53 H (0-0.5) x10^3/uL Immature Gran # (Auto) 0.02 (0.00-0.03) x10^3u/L Absolute Lymphs (auto) 0.96 L (1.0-4.6) x10^3/uL Absolute Monos (auto) 0.98 (0.0-1.3) x10^3/uL Absolute Nucleated RBC 0.00 (0.00-0.01) x10^3u/L Lymphocytes % 20.0 L (24.0-44.0) % Monocytes % 20.4 H (0.0-12.0) % Eosinophils % 11.0 H (0.00-5.0) % Basophils % 1.3 (0.0-0.4) % Absolute Granulocytes 2.25 (1.4-6.9) x10^3/uL Basophils # 0.06 (0-0.4) x10^3/uL D-Dimer 1.82 H* (0.0-0.50) mg/L Sodium 140 (137-145) mmol/L Potassium 4.0 (3.5-5.1) mmol/L Chloride 108 H (98-107) mmol/L Carbon Dioxide 26 (22-30) mmol/L Anion Gap 10.7 (5-15) MEQ/L BUN 8 (7-17) mg/dL Creatinine 0.78 (0.52-1.04) mg/dL Estimated GFR > 60.0 ML/MIN Glucose 151 H (74-106) mg/dL POC Glucometer (74 to 106) mg/dL Calcium 8.8 (8.4-10.2) mg/dL Total Bilirubin 2.30 H (0.2-1.3) mg/dL AST 64 H (14-36) U/L ALT 33 (0-35) U/L Alkaline Phosphatase 178 H (38-126) U/L Troponin I (0.000-0.034) ng/mL NT-Pro-B Natriuret Pep 58.3 (<300) pg/mL Serum Total Protein 7.2 (6.3-8.2) g/dL Albumin 3.3 L (3.5-5.0) g/dL Influenza Type A Ag (NEGATIVE) Influenza Type B Ag (NEGATIVE) RSV (PCR) (NEGATIVE) SARS-CoV-2 (PCR) (NEGATIVE) Slides for Path Review YES 04/15/23 04/15/23 04/15/23 Range/Units 17:20 18:05 22:30 WBC (4.0-10.5) x10^3/uL RBC (4.1-5.4) x10^6/uL Hgb (12.0-16.0) g/dL Hct (35-47) % MCV (78-100) fL MCH (26-32) pg MCHC (32-36) g/dL RDW (11.5-14.0) % Plt Count (150-450) x10^3/uL MPV (7.5-11.0) fL Gran % (36.0-66.0) % Immature Gran % (Auto) (0.00-0.4) % Nucleat RBC Rel Count (0.00-0.1) % Eos # (Auto) (0-0.5) x10^3/uL Immature Gran # (Auto) (0.00-0.03) x10^3u/L Absolute Lymphs (auto) (1.0-4.6) x10^3/uL Absolute Monos (auto) (0.0-1.3) x10^3/uL Absolute Nucleated RBC (0.00-0.01) x10^3u/L Lymphocytes % (24.0-44.0) % Monocytes % (0.0-12.0) % Eosinophils % (0.00-5.0) % Basophils % (0.0-0.4) % Absolute Granulocytes (1.4-6.9) x10^3/uL Basophils # (0-0.4) x10^3/uL D-Dimer (0.0-0.50) mg/L Sodium (137-145) mmol/L Potassium (3.5-5.1) mmol/L Chloride (98-107) mmol/L Carbon Dioxide (22-30) mmol/L Anion Gap (5-15) MEQ/L BUN (7-17) mg/dL Creatinine (0.52-1.04) mg/dL Estimated GFR ML/MIN Glucose (74-106) mg/dL POC Glucometer (74 to 106) mg/dL Calcium (8.4-10.2) mg/dL Total Bilirubin (0.2-1.3) mg/dL AST (14-36) U/L ALT (0-35) U/L Alkaline Phosphatase (38-126) U/L Troponin I < 0.012 0.013 (0.000-0.034) ng/mL NT-Pro-B Natriuret Pep (<300) pg/mL Serum Total Protein (6.3-8.2) g/dL Albumin (3.5-5.0) g/dL Influenza Type A Ag NEGATIVE (NEGATIVE) Influenza Type B Ag NEGATIVE (NEGATIVE) RSV (PCR) NEGATIVE (NEGATIVE) SARS-CoV-2 (PCR) NEGATIVE (NEGATIVE) Slides for Path Review 04/16/23 04/16/23 04/16/23 Range/Units 02:48 02:48 02:48 WBC 4.7 (4.0-10.5) x10^3/uL RBC 4.18 (4.1-5.4) x10^6/uL Hgb 11.1 L (12.0-16.0) g/dL Hct 36.8 (35-47) % MCV 88.0 (78-100) fL MCH 26.6 (26-32) pg MCHC 30.2 L (32-36) g/dL RDW 15.3 H (11.5-14.0) % Plt Count 81 L (150-450) x10^3/uL MPV 9.7 (7.5-11.0) fL Gran % (36.0-66.0) % Immature Gran % (Auto) (0.00-0.4) % Nucleat RBC Rel Count (0.00-0.1) % Eos # (Auto) (0-0.5) x10^3/uL Immature Gran # (Auto) (0.00-0.03) x10^3u/L Absolute Lymphs (auto) (1.0-4.6) x10^3/uL Absolute Monos (auto) (0.0-1.3) x10^3/uL Absolute Nucleated RBC (0.00-0.01) x10^3u/L Lymphocytes % (24.0-44.0) % Monocytes % (0.0-12.0) % Eosinophils % (0.00-5.0) % Basophils % (0.0-0.4) % Absolute Granulocytes (1.4-6.9) x10^3/uL Basophils # (0-0.4) x10^3/uL D-Dimer (0.0-0.50) mg/L Sodium 134 L (137-145) mmol/L Potassium 4.8 (3.5-5.1) mmol/L Chloride 105 (98-107) mmol/L Carbon Dioxide 19 L (22-30) mmol/L Anion Gap 14.3 (5-15) MEQ/L BUN 14 (7-17) mg/dL Creatinine 0.75 (0.52-1.04) mg/dL Estimated GFR > 60.0 ML/MIN Glucose 370 H (74-106) mg/dL POC Glucometer (74 to 106) mg/dL Calcium 8.6 (8.4-10.2) mg/dL Total Bilirubin 3.10 H (0.2-1.3) mg/dL AST 68 H (14-36) U/L ALT 36 H (0-35) U/L Alkaline Phosphatase 179 H (38-126) U/L Troponin I 0.012 (0.000-0.034) ng/mL NT-Pro-B Natriuret Pep (<300) pg/mL Serum Total Protein 7.5 (6.3-8.2) g/dL Albumin 3.4 L (3.5-5.0) g/dL Influenza Type A Ag (NEGATIVE) Influenza Type B Ag (NEGATIVE) RSV (PCR) (NEGATIVE) SARS-CoV-2 (PCR) (NEGATIVE) Slides for Path Review 04/16/23 04/16/23 Range/Units 06:43 11:15 WBC (4.0-10.5) x10^3/uL RBC (4.1-5.4) x10^6/uL Hgb (12.0-16.0) g/dL Hct (35-47) % MCV (78-100) fL MCH (26-32) pg MCHC (32-36) g/dL RDW (11.5-14.0) % Plt Count (150-450) x10^3/uL MPV (7.5-11.0) fL Gran % (36.0-66.0) % Immature Gran % (Auto) (0.00-0.4) % Nucleat RBC Rel Count (0.00-0.1) % Eos # (Auto) (0-0.5) x10^3/uL Immature Gran # (Auto) (0.00-0.03) x10^3u/L Absolute Lymphs (auto) (1.0-4.6) x10^3/uL Absolute Monos (auto) (0.0-1.3) x10^3/uL Absolute Nucleated RBC (0.00-0.01) x10^3u/L Lymphocytes % (24.0-44.0) % Monocytes % (0.0-12.0) % Eosinophils % (0.00-5.0) % Basophils % (0.0-0.4) % Absolute Granulocytes (1.4-6.9) x10^3/uL Basophils # (0-0.4) x10^3/uL D-Dimer (0.0-0.50) mg/L Sodium (137-145) mmol/L Potassium (3.5-5.1) mmol/L Chloride (98-107) mmol/L Carbon Dioxide (22-30) mmol/L Anion Gap (5-15) MEQ/L BUN (7-17) mg/dL Creatinine (0.52-1.04) mg/dL Estimated GFR ML/MIN Glucose (74-106) mg/dL POC Glucometer 319 H 295 H (74 to 106) mg/dL Calcium (8.4-10.2) mg/dL Total Bilirubin (0.2-1.3) mg/dL AST (14-36) U/L ALT (0-35) U/L Alkaline Phosphatase (38-126) U/L Troponin I (0.000-0.034) ng/mL NT-Pro-B Natriuret Pep (<300) pg/mL Serum Total Protein (6.3-8.2) g/dL Albumin (3.5-5.0) g/dL Influenza Type A Ag (NEGATIVE) Influenza Type B Ag (NEGATIVE) RSV (PCR) (NEGATIVE) SARS-CoV-2 (PCR) (NEGATIVE) Slides for Path Review - Radiology Exams Ordered Rad Exams-Entire Visit: Radiology Procedures Category Date Time Status CHEST WITH CONTRAST [CT] Stat Exams 04/15/23 18:23 Completed - Procedures and Test Procedures and Tests throughout Hospitalization: Therapy Orders & Screens 04/15/23 18:17 Respiratory Therapy Assessment DAILY Comment: Discharge Exam Neurologic Exam: alert, oriented x 3, cooperative, charge operator II-XII nml as tested, normal mood/affect, nml cerebellar function Eye Exam: PERRL, EOMI Ears, Nose, Throat Exam: normal ENT inspection Neck Exam: normal inspection Respiratory Exam: normal breath sounds Cardiovascular Exam: regular rate/rhythm, normal heart sounds Gastrointestinal/Abdomen Exam: soft, normal bowel sounds Back Exam: normal inspection Extremity Exam: normal inspection Skin Exam: normal color Final Diagnosis/Problem List - Final Discharge Diagnosis/Problem (1) Asthma exacerbation Current Visit: Yes Status: Acute Assessment & Plan: Improved Code(s): J45.901 - UNSPECIFIED ASTHMA WITH (ACUTE) EXACERBATION (2) Respiratory distress Current Visit: Yes Status: Acute Assessment & Plan: Improved Code(s): R06.03 - ACUTE RESPIRATORY DISTRESS (3) Tachycardia Current Visit: Yes Status: Acute Assessment & Plan: Improved Code(s): R00.0 - TACHYCARDIA, UNSPECIFIED - Discharge Disposition: Home, Self-Care Condition: Stable Prescriptions: New EPINEPHrine [Epipen 0.3 MG] 0.3 mg IJ DAILY 1 Days #2 units Methylprednisolone Packet [Medrol Dosepack] 4 mg PO UD #30 packet Ipratropium [place] [Atrovent Hfa] 2 puff IH Q4HPRN PRN #1 PRN Reason: Shortness Of Breath/Wheezing Continue Levothyroxine Sodium 75 mcg PO DAILY Glimepiride 4 mg [Amaryl 4 mg] 4 mg PO DAILY Cyanocobalamin 1000 Mcg/ml [Cyanocobalamin B-12 1000 MCG/ML] 1,000 mcg IJ UD Spironolactone 50 mg PO DAILY Insulin Lispro [Humalog Kwikpen U-100] See Rx Instructions .ROUTE .COMPLEX PRN PRN Reason: Hyperglycemia Instructions: Asthma, Adult (DC) Follow up with: DAVON BURTON NP [NON-STAFF PHY W/O PRIVILEGES] - 04/18/23 10:30 am Forms: Discharge Instructions
[2023-04-17] MEDS ORDERED: NON-FORMULARY ITEM (Spironolactone [Spironolactone] 50 MG Tablet) PO SCH (10:00)
== END 2023-04-16 15:13 | disposition home or self-care (01) ==
LOC: ED 17:07 → MED SURG 23:03
PROVIDERS: ADMIT Family Medicine; ATTEND Family Medicine
DX: J45.901 Unspecified asthma with (acute) exacerbation (principal); R06.03 Acute respiratory distress; R00.0 Tachycardia, unspecified; E11.9 Type 2 diabetes mellitus without complications; E03.9 Hypothyroidism, unspecified; Z79.899 Other long term (current) drug therapy; Z20.828 Contact with and (suspected) exposure to other viral communicable diseases; Z85.3 Personal history of malignant neoplasm of breast
CPT/HCPCS: 0241U; 36000; 36415; 71260; 80053; 82947; 83880; 84484; 85025; 85027; 85379; 87040; 93005; 93041; 94640; 94760; 94762; 96365; 96366; 96374; 99284; Q3014; 93268; J1817; J2930; J3475; A9270-GY; G0378

== ENCOUNTER 2023-09-22 08:57 | Emergency (ER) | payer BC ==
[2023-09-22] MEDS ORDERED: Sodium Chloride 0.9% 1000 ML 1,000 ML IV SCH (09:00)
[2023-09-22 09:07] VITALS: BP 102/81; TEMP 97.5
[2023-09-22] MEDS ORDERED: Ativan 2 MG/1 ML VIAL ONE (09:09)
[2023-09-22] MEDS ORDERED: Sodium Chloride 0.9% 1000 ML 1,000 ML ONE (09:09)
[2023-09-22] MEDS ORDERED: Ativan 2 MG/1 ML VIAL IV ONE (09:19)
[2023-09-22 09:27] LABS: Absolute Neutrophil Ct (ANC) 5.23 x10^3/uL (1.4-6.9); BASOPHIL % 0.5 % (0.0-0.4); Basophil (Absolute #) 0.04 x10^3/uL (0-0.4); Eosinophil (Absolute #) 0.16 x10^3/uL (0-0.5); Hematocrit 40.1 % (35-47); Hemoglobin 13.3 g/dL (12.0-16.0); IMMATURE GRAN # 0.03 x10^3u/L (0.00-0.03); IMMATURE GRAN % 0.4 % (0.00-0.4); Lymphocyte (Absolute #) 0.92 x10^3/uL (1.0-4.6); Lymphocytes % 11.6 % (24.0-44.0); Mean Cell Volume 92.4 fL (78-100); Mean Corpuscular Hemoglobin 30.6 pg (26-32); Mean Corpuscular Hgb Concent. 33.2 g/dL (32-36); Mean Platelet Volume 8.9 fL (7.5-11.0); Monocyte (Absolute #) 1.55 x10^3/uL (0.0-1.3); Monocytes % 19.5 % (0.0-12.0); Platelet Count 175 x10^3/uL (150-450); Red Blood Count 4.34 x10^6/uL (4.1-5.4); Red Cell Distribution Width 18.2 % (11.5-14.0); White Blood Count 7.9 x10^3/uL (4.0-10.5)
[2023-09-22 09:31] LABS: VBG BASE EXCESS 3.9 (-2.0-2.0); VBG CARBOXYHEMOGLOBIN 6.2 % T HGB (0.0-6.9); VBG HCO3- 27.7 meq/L (22-28); VBG HEMOGLOBIN 13.9; VBG O2 SATURATION 86.7 (95-100); VBG POTASSIUM 5.4 (3.5-5.1); VBG pH 7.47 (7.32-7.42)
[2023-09-22 09:43] LABS: INR 1.17 (0.8-3.0); PROTIME 12.6 SECONDS (9.4-12.5)
[2023-09-22 09:45] LABS: ACETAMINOPHEN < 10 ug/ml (10-30); ALBUMIN 2.9 g/dL (3.5-5.0); ALKALINE PHOSPHATASE 238 U/L (38-126); BLOOD UREA NITROGEN 20 mg/dL (7-17); CHLORIDE 99 mmol/L (98-107); Calcium 8.5 mg/dL (8.4-10.2); Carbon Dioxide 23 mmol/L (22-30); Creatinine 1 1.24 mg/dL (0.52-1.04); EST GLOMERULAR FILTRATION RATE 48.6 ML/MIN; ETHYL ALCOHOL < 10 mg/dL (0-10); Glucose 160 mg/dL (74-106); LIPASE 231 U/L (23-300); SALICYLATE < 1.0 mg/dL (2-20); SGOT/AST 115 U/L (14-36); SGPT/ALT 57 U/L (0-35); SODIUM 129 mmol/L (137-145); Total Protein 6.6 g/dL (6.3-8.2)
[2023-09-22] MEDS ORDERED: Haldol 5 MG ONE (09:45)
[2023-09-22] MEDS ORDERED: Haldol 5 MG IV ONE (09:45)
[2023-09-22 09:46] LABS: Potassium 5.2 mmol/L (3.5-5.1)
[2023-09-22 09:47] LABS: ANION GAP 12.2 MEQ/L (5-15)
[2023-09-22] MEDS ORDERED: THIAMINE 200 MG/2 ML IV ONE (09:53)
--- NOTE | 2023-09-22 09:53 | XRAY ---
Indication: Confusion. Comparison: April 18, 2021 Portable chest is now underinflated with stable incidental right midlung calcified granuloma. Remaining heart, lungs, and bony thorax unremarkable.
[2023-09-22] MEDS ORDERED: THIAMINE 200 MG/2 ML ONE (09:57)
[2023-09-22 10:04] VITALS: O2SAT 99
[2023-09-22 10:07] LABS: Slide Review 1 YES
--- NOTE | 2023-09-22 11:28 | XRAY ---
Indication: Altered mental status. Confusion. Multiple contiguous axial images obtained through the head without contrast. Comparison: None Ventriculosulcal pattern appears symmetric. Left basal ganglia demonstrates 7-8 mm subtle focus of hypoattenuation, ischemia of uncertain chronicity. No acute intracranial hemorrhage, abnormal extra axial fluid collection, or mass effect. Fourth ventricle is midline without hydrocephalus. Zhao-white matter differentiation preserved. Bony calvarium intact. Visualized paranasal sinuses and mastoid air cells are clear. Impression: 7-8mm hypoattenuation left basal ganglia, ischemia of uncertain chronicity. No acute intracranial hemorrhage/mass effect.
[2023-09-22 11:30] VITALS: PULSE 119; RESP 16
--- NOTE | 2023-09-22 11:54 | ERPHSYRPT ---
- History of Present Illness Time Seen by Provider: 09/22/23 09:10 Source: family, EMS Exam Limitations: clinical condition, physical impairment, other (Altered mental status) Patient Subjective Stated Complaint: Pt family stated "She has been confused for the past couple of days. She was really bad on friday and we got her to get some labs but she had no idea what was going on this morning." Triage Nursing Assessment: Pt presented alert and oriented X 3, skin pwd. Pt speech is slurred, pt confused, non cooperative, not answering questions a ppropriately. Pt in no apparent respiratory distress. Physician History: Patient is a 63-year-old white female who presents by ambulance with confusion and agitation. She has had increasing confusion and deterioration of her mental status since or 5 days ago. Patient has longstanding cirrhosis. Labs were ordered from the skilled nursing and were abnormal but were delayed in being reported to the family. The only thing they are certain of is that the sodium was low.Patient has ascites and undergoes paracentesis every Friday at [facility] in [place]. Timing/Duration: day(s) (5) Severity: severe Associated Symptoms: abdominal pain Allergies/Adverse Reactions: albuterol Allergy (Severe, Verified 04/15/23 17:09) Difficulty Breathing resp. distress ciprofloxacin [From Cipro] Allergy (Severe, Verified 04/15/23 17:09) Swelling Sulfa (Sulfonamide Antibiotics) Allergy (Severe, Verified 04/15/23 17:09) Tightness of Throat throat swells flu shot Allergy (Uncoded 04/15/23 17:09) Home Medications: Cyanocobalamin 1000 Mcg/ml [Cyanocobalamin B-12 1000 MCG/ML] 1,000 mcg IJ UD 12/11/19 [History] Glimepiride 4 mg [Amaryl 4 mg] 4 mg PO DAILY 12/11/19 [History] Levothyroxine Sodium 75 mcg PO DAILY 12/11/19 [History] Spironolactone 50 mg PO DAILY 04/18/21 [History] Furosemide [Lasix] 20 mg PO DAILY 09/22/23 [History] Hx Tetanus, Diphtheria Vaccination/Date Given: No Hx Influenza Vaccination/Date Given: No Hx Pneumococcal Vaccination/Date Given: No Immunizations Up to Date: Yes Travel Risk - International Travel Have you traveled outside of the country in past 3 weeks: No - Coronavirus Screening Are you exhibiting any of the following symptoms?: No Close contact with a COVID-19 positive Pt in past 14-21 Days: No - Vaccine Status Have you recieved a Covid-19 vaccination: Yes [employer]: Moderna - Vaccination Dates Date of 2cond Vaccination (if applicable): 03/01/21 - Review of Systems All Other Systems: Unable due to condition - Past Medical History Pertinent Past Medical History: Yes Neurological History: No Pertinent History ENT History: No Pertinent History Cardiac History: No Pertinent History Respiratory History: Asthma Endocrine Medical History: Diabetes Type II, Hypothyroidism Musculoskeletal History: No Pertinent History GI Medical History: Gallbladder Disease History: No Pertinent History Psycho-Social History: No Pertinent History Female Reproductive Disorders: Breast Cancer Other Medical History: Shingles - Past Surgical History Past Surgical History: Yes Neuro Surgical History: No Pertinent History Cardiac: No Pertinent History Respiratory: No Pertinent History Gastrointestinal: Hemorrhoidectomy Genitourinary: No Pertinent History Musculoskeletal: No Pertinent History Female Surgical History: Hysterectomy, Lumpectomy Other Surgical History: exploratory lap.,right foot tendon, anal fissures - Social History Smoking Status: Never smoker Exposure to second hand smoke: No Alcohol Use: None Drug Use: none Patient Lives Alone: No Significant Family History: heart disease, diabetes, hypertension - Nursing Vital Signs Nursing Vital Signs: Initial Vital Signs Temperature 97.5 F 09/22/23 08:58 Pulse Rate 109 H 09/22/23 08:58 Respiratory Rate 22 09/22/23 08:58 Blood Pressure 102/81 09/22/23 08:58 O2 Sat by Pulse Oximetry 100 09/22/23 08:58 Pain Scale Pain Intensity 0 - Physical Exam General Appearance: severe distress Eye Exam: PERRL/EOMI, scleral icterus Ears, Nose, Throat Exam: normal ENT inspection, TMs normal, pharynx normal, moist mucous membranes Neck Exam: normal inspection, non-tender, supple, full range of motion Respiratory Exam: normal breath sounds, lungs clear, No respiratory distress Cardiovascular Exam: regular rate/rhythm, normal heart sounds, normal peripheral pulses Gastrointestinal/Abdomen Exam: normal bowel sounds, tenderness (Mild diffuse tenderness) Pelvic Exam: not done Rectal Exam: deferred Back Exam: normal inspection, normal range of motion Extremity Exam: normal inspection, normal range of motion Neurologic Exam: confusion, agitation, uncooperative Skin Exam: warm, dry SpO2 Interpretation: normal SpO2: 99 O2 Delivery: Room Air - Course Nursing assessment & vital signs reviewed: Yes EKG Interpreted by Me: RATE (101), Sinus Tach, NORMAL AXIS, prolonged QT interval, Non-specific ST Changes - Radiology Exams Chest X-ray Interpretation: Reviewed by me - CT Exams Head CT Interpretation: Negative Ordered Tests: Active Orders 24 hr Category Date Time Status EKG-ER Only STAT Care 09/22/23 09:02 Active IV Insertion STAT Care 09/22/23 08:59 Active CHEST 1 VIEW (PORTABLE) Stat Exams 09/22/23 09:00 Completed HEAD WITHOUT CONTRAST [CT] Stat Exams 09/22/23 09:00 Completed ACETAMINOPHEN Stat Lab 09/22/23 09:15 Completed CBC W DIFF Stat Lab 09/22/23 09:15 Completed CMP Stat Lab 09/22/23 09:15 Completed CULTURE,URINE Stat Lab 09/22/23 09:01 Ordered ETHYL ALCOHOL Stat Lab 09/22/23 09:15 Completed LIPASE Stat Lab 09/22/23 09:15 Completed Lactic Acid Stat Lab 09/22/23 09:15 Completed Lactic Acid Stat Lab 09/22/23 11:29 Received PROTIME WITH INR Stat Lab 09/22/23 09:15 Completed SALICYLATE Stat Lab 09/22/23 09:15 Completed TROPONIN Q4H Lab 09/22/23 09:15 Completed TROPONIN Q4H Lab 09/22/23 13:15 Ordered TROPONIN Q4H Lab 09/22/23 17:15 Ordered UA W/RFX UR CULTURE Stat Lab 09/22/23 09:00 Ordered Urine Triage Profile Stat Lab 09/22/23 09:00 Ordered VENOUS BLOOD GAS Stat Lab 09/22/23 09:15 Completed Medication Summary Generic Name Dose Route Start Last Admin Trade Name Freq PRN Reason Stop Dose Admin Sodium Chloride 1,000 mls @ 100 mls/hr 09/22/23 09:00 09/22/23 09:12 Sodium Chloride 0.9% 1000 Ml IV 10/22/23 08:59 100 mls/hr .Q10H SHILA Administration Discontinued Medications Generic Name Dose Route Start Last Admin Trade Name Freq PRN Reason Stop Dose Admin Haloperidol Lactate Confirm 09/22/23 09:45 Haloperidol Lactate 5 Mg/Ml Vial Administered 09/22/23 09:46 Dose 5 mg .ROUTE .STK-MED ONE Haloperidol Lactate 5 mg 09/22/23 09:45 09/22/23 09:53 Haloperidol Lactate 5 Mg/Ml Vial IV 09/22/23 09:46 5 mg STAT ONE Administration Lorazepam Confirm 09/22/23 09:09 Lorazepam 2 Mg/1 Ml 2 Mg Vial Administered 09/22/23 09:10 Dose 2 mg .ROUTE .STK-MED ONE Lorazepam 1 mg 09/22/23 09:19 09/22/23 09:20 Lorazepam 2 Mg/1 Ml 2 Mg Vial IV 09/22/23 09:20 1 mg STAT ONE Administration Thiamine HCl 100 mg 09/22/23 09:53 09/22/23 09:57 Thiamine Hcl 200 Mg/2 Ml Vial IV 09/22/23 09:54 100 mg STAT ONE Administration Thiamine HCl Confirm 09/22/23 09:57 Thiamine Hcl 200 Mg/2 Ml Vial Administered 09/22/23 09:58 Dose 200 mg .ROUTE .STK-MED ONE Lab/Rad Data: Laboratory Result Diagrams 09/22/23 09:15 09/22/23 09:15 Laboratory Results 09/22/23 09/22/23 09/22/23 Range/Units 09:15 09:15 09:15 WBC (4.0-10.5) x10^3/uL RBC (4.1-5.4) x10^6/uL Hgb (12.0-16.0) g/dL Hct (35-47) % MCV (78-100) fL MCH (26-32) pg MCHC (32-36) g/dL RDW (11.5-14.0) % Plt Count (150-450) x10^3/uL MPV (7.5-11.0) fL Gran % (36.0-66.0) % Immature Gran % (Auto) (0.00-0.4) % Nucleat RBC Rel Count (0.00-0.1) % Eos # (Auto) (0-0.5) x10^3/uL Immature Gran # (Auto) (0.00-0.03) x10^3u/L Absolute Lymphs (auto) (1.0-4.6) x10^3/uL Absolute Monos (auto) (0.0-1.3) x10^3/uL Absolute Nucleated RBC (0.00-0.01) x10^3u/L Lymphocytes % (24.0-44.0) % Monocytes % (0.0-12.0) % Eosinophils % (0.00-5.0) % Basophils % (0.0-0.4) % Absolute Granulocytes (1.4-6.9) x10^3/uL Basophils # (0-0.4) x10^3/uL PT (9.4-12.5) SECONDS INR (0.8-3.0) pO2/FiO2 Ratio 21.0 % VBG pH 7.47 H (7.32-7.42) VBG pCO2 at Pat Temp 38 L (42-55) mm/Hg VBG pO2 at Pat Temp 53 H (25-40) mm/Hg VBG HCO3 27.7 (22-28) meq/L VBG O2 Sat (Tolu) 86.7 L (95-100) VBG Base Excess 3.9 H (-2.0-2.0) VBG Hemoglobin 13.9 VBG Carboxyhemoglobin 6.2 (0.0-6.9) % T HGB POC Potassium 5.4 H (3.5-5.1) Sodium (137-145) mmol/L Potassium (3.5-5.1) mmol/L Chloride (98-107) mmol/L Carbon Dioxide (22-30) mmol/L Anion Gap (5-15) MEQ/L BUN (7-17) mg/dL Creatinine (0.52-1.04) mg/dL Estimated GFR ML/MIN Glucose (74-106) mg/dL Lactic Acid (0.4-2.0) Calcium (8.4-10.2) mg/dL Total Bilirubin (0.2-1.3) mg/dL AST (14-36) U/L ALT (0-35) U/L Alkaline Phosphatase (38-126) U/L Ammonia 89 H (9-30) umol/L Troponin I 0.024 (0.000-0.034) ng/mL Serum Total Protein (6.3-8.2) g/dL Albumin (3.5-5.0) g/dL Lipase (23-300) U/L Salicylates (2-20) mg/dL Acetaminophen (10-30) ug/ml Ethyl Alcohol (0-10) mg/dL Slides for Path Review 09/22/23 09/22/23 09/22/23 Range/Units 09:15 09:15 09:15 WBC (4.0-10.5) x10^3/uL RBC (4.1-5.4) x10^6/uL Hgb (12.0-16.0) g/dL Hct (35-47) % MCV (78-100) fL MCH (26-32) pg MCHC (32-36) g/dL RDW (11.5-14.0) % Plt Count (150-450) x10^3/uL MPV (7.5-11.0) fL Gran % (36.0-66.0) % Immature Gran % (Auto) (0.00-0.4) % Nucleat RBC Rel Count (0.00-0.1) % Eos # (Auto) (0-0.5) x10^3/uL Immature Gran # (Auto) (0.00-0.03) x10^3u/L Absolute Lymphs (auto) (1.0-4.6) x10^3/uL Absolute Monos (auto) (0.0-1.3) x10^3/uL Absolute Nucleated RBC (0.00-0.01) x10^3u/L Lymphocytes % (24.0-44.0) % Monocytes % (0.0-12.0) % Eosinophils % (0.00-5.0) % Basophils % (0.0-0.4) % Absolute Granulocytes (1.4-6.9) x10^3/uL Basophils # (0-0.4) x10^3/uL PT 12.6 H (9.4-12.5) SECONDS INR 1.17 (0.8-3.0) pO2/FiO2 Ratio % VBG pH (7.32-7.42) VBG pCO2 at Pat Temp (42-55) mm/Hg VBG pO2 at Pat Temp (25-40) mm/Hg VBG HCO3 (22-28) meq/L VBG O2 Sat (Tolu) (95-100) VBG Base Excess (-2.0-2.0) VBG Hemoglobin VBG Carboxyhemoglobin (0.0-6.9) % T HGB POC Potassium (3.5-5.1) Sodium 129 L (137-145) mmol/L Potassium 5.2 H (3.5-5.1) mmol/L Chloride 99 (98-107) mmol/L Carbon Dioxide 23 (22-30) mmol/L Anion Gap 12.2 (5-15) MEQ/L BUN 20 H (7-17) mg/dL Creatinine 1.24 H (0.52-1.04) mg/dL Estimated GFR 48.6 ML/MIN Glucose 160 H (74-106) mg/dL Lactic Acid 3.1 H (0.4-2.0) Calcium 8.5 (8.4-10.2) mg/dL Total Bilirubin 4.40 H (0.2-1.3) mg/dL AST 115 H (14-36) U/L ALT 57 H (0-35) U/L Alkaline Phosphatase 238 H (38-126) U/L Ammonia (9-30) umol/L Troponin I (0.000-0.034) ng/mL Serum Total Protein 6.6 (6.3-8.2) g/dL Albumin 2.9 L (3.5-5.0) g/dL Lipase 231 (23-300) U/L Salicylates < 1.0 L (2-20) mg/dL Acetaminophen < 10 L (10-30) ug/ml Ethyl Alcohol < 10 (0-10) mg/dL Slides for Path Review 09/22/23 Range/Units 09:15 WBC 7.9 (4.0-10.5) x10^3/uL RBC 4.34 (4.1-5.4) x10^6/uL Hgb 13.3 (12.0-16.0) g/dL Hct 40.1 (35-47) % MCV 92.4 (78-100) fL MCH 30.6 (26-32) pg MCHC 33.2 (32-36) g/dL RDW 18.2 H (11.5-14.0) % Plt Count 175 (150-450) x10^3/uL MPV 8.9 (7.5-11.0) fL Gran % 66.0 (36.0-66.0) % Immature Gran % (Auto) 0.4 (0.00-0.4) % Nucleat RBC Rel Count 0.0 (0.00-0.1) % Eos # (Auto) 0.16 (0-0.5) x10^3/uL Immature Gran # (Auto) 0.03 (0.00-0.03) x10^3u/L Absolute Lymphs (auto) 0.92 L (1.0-4.6) x10^3/uL Absolute Monos (auto) 1.55 H (0.0-1.3) x10^3/uL Absolute Nucleated RBC 0.00 (0.00-0.01) x10^3u/L Lymphocytes % 11.6 L (24.0-44.0) % Monocytes % 19.5 H (0.0-12.0) % Eosinophils % 2.0 (0.00-5.0) % Basophils % 0.5 (0.0-0.4) % Absolute Granulocytes 5.23 (1.4-6.9) x10^3/uL Basophils # 0.04 (0-0.4) x10^3/uL PT (9.4-12.5) SECONDS INR (0.8-3.0) pO2/FiO2 Ratio % VBG pH (7.32-7.42) VBG pCO2 at Pat Temp (42-55) mm/Hg VBG pO2 at Pat Temp (25-40) mm/Hg VBG HCO3 (22-28) meq/L VBG O2 Sat (Tolu) (95-100) VBG Base Excess (-2.0-2.0) VBG Hemoglobin VBG Carboxyhemoglobin (0.0-6.9) % T HGB POC Potassium (3.5-5.1) Sodium (137-145) mmol/L Potassium (3.5-5.1) mmol/L Chloride (98-107) mmol/L Carbon Dioxide (22-30) mmol/L Anion Gap (5-15) MEQ/L BUN (7-17) mg/dL Creatinine (0.52-1.04) mg/dL Estimated GFR ML/MIN Glucose (74-106) mg/dL Lactic Acid (0.4-2.0) Calcium (8.4-10.2) mg/dL Total Bilirubin (0.2-1.3) mg/dL AST (14-36) U/L ALT (0-35) U/L Alkaline Phosphatase (38-126) U/L Ammonia (9-30) umol/L Troponin I (0.000-0.034) ng/mL Serum Total Protein (6.3-8.2) g/dL Albumin (3.5-5.0) g/dL Lipase (23-300) U/L Salicylates (2-20) mg/dL Acetaminophen (10-30) ug/ml Ethyl Alcohol (0-10) mg/dL Slides for Path Review YES - Progress Progress: unchanged Progress Note: 09/22/23 11:57 Called the transfer center at [facility] in [place] and spoke with Dr. Alex who accepted this patient in transfer. Medical Desision Making - Independent Historian Additional History obtained from: Family - Discussion of managment Care discussed with:: hospitalist (Dr. Wong in [place]) Reviewed:: Test results Agreed on:: Treatment plan, decision to admit Will see patient: in hospital - Diagnostic Testing Diagnostic test were ordered, analyzed, and reviewed by me: Yes Radiological Interpretation: Reviewed by me - Risk of complications The pt has a mod risk of morbidity or mortality based on: Need for prescription drug management - Departure Departure Disposition: Transfer (Transferred to [place] to the hospitalist service) Clinical Impression: Hepatic encephalopathy Condition: Serious Critical Care Time: Yes Critical Care Time(excluding separately billable procedures): Critical 30-74 mins (40) Referrals: DAVON BURTON, [employer] [Primary Care Provider] - Follow up/PCP as directed
== END 2023-09-22 13:15 | disposition short-term general hospital (02) ==
LOC: ED 08:57
DX: K76.82 Hepatic encephalopathy (principal); R41.0 Disorientation, unspecified; E11.9 Type 2 diabetes mellitus without complications; Z79.84 Long term (current) use of oral hypoglycemic drugs; Z79.899 Other long term (current) drug therapy
CPT/HCPCS: 36000; 36415; 70450; 71045; 80053; 80143; 80179; 82077; 82140; 82805; 83605; 83690; 84484; 85025; 85610; 93005; 96374; 96375; 99285; 99291; J1630; J2060

== ENCOUNTER 2024-03-23 05:37 | Day surgery (SDC) | payer BC ==
[2024-03-23] MEDS: Lactated Ringers 1,000 ML IV SCH (06:11)
[2024-03-23 06:32] LABS: Absolute Neutrophil Ct (ANC) 4.66 x10^3/uL (1.4-6.9); BASOPHIL % 0.9 % (0.0-0.4); Basophil (Absolute #) 0.07 x10^3/uL (0-0.4); Eosinophil % 5.1 % (0.00-5.0); Eosinophil (Absolute #) 0.39 x10^3/uL (0-0.5); Hematocrit 30.5 % (35-47); Hemoglobin 10.3 g/dL (12.0-16.0); IMMATURE GRAN # 0.06 x10^3u/L (0.00-0.03); IMMATURE GRAN % 0.8 % (0.00-0.4); Lymphocytes % 15.7 % (24.0-44.0); Mean Cell Volume 103.4 fL (78-100); Mean Corpuscular Hemoglobin 34.9 pg (26-32); Mean Corpuscular Hgb Concent. 33.8 g/dL (32-36); Mean Platelet Volume 9.2 fL (7.5-11.0); Monocyte (Absolute #) 1.24 x10^3/uL (0.0-1.3); Monocytes % 16.3 % (0.0-12.0); Neutrophil % 61.2 % (36.0-66.0); Platelet Count 111 x10^3/uL (150-450); Red Blood Count 2.95 x10^6/uL (4.1-5.4); White Blood Count 7.6 x10^3/uL (4.0-10.5)
[2024-03-23 06:43] VITALS: O2SAT 100
[2024-03-23] MEDS ORDERED: D50W 50 ml Abboject IV ONE (06:43)
[2024-03-23 06:48] LABS: INR 1.31 (0.8-3.0); PTT 30.2 SECONDS (25.1-36.5)
[2024-03-23 06:52] LABS: ALBUMIN 3.7 g/dL (3.5-5.0); ANION GAP 11.8 MEQ/L (5-15); BILIRUBIN,TOTAL 7.2 mg/dL (0.2-1.3); Calcium 9.2 mg/dL (8.4-10.2); Creatinine 1 1.45 mg/dL (0.52-1.04); EST GLOMERULAR FILTRATION RATE 40.3 ML/MIN; Potassium 3.8 mmol/L (3.5-5.1)
[2024-03-23] MEDS ORDERED: DIPRIVAN 200 MG/20 ML IV ONE (07:05)
[2024-03-23] MEDS ORDERED: Versed 2 MG/2 ML Injection ONE (07:05)
--- NOTE | 2024-03-23 08:04 | OP ---
SURGERY DATE/TIME: 03/23/2024 0708 PREOPERATIVE DIAGNOSIS: Screening exam. POSTOPERATIVE DIAGNOSIS: Normal colon. PROCEDURE: Colonoscopy. SURGEON: Dr. Flanagan. ANESTHESIA: Medications given by anesthesia department. HISTORY: The patient is a 63-year-old white female who had previous history of breast cancer. At some point in time after her treatments, the patient developed liver failure and the family has laid that off on a wrong medication. This apparently occurred about three years previously. The patient has been getting paracentesis performed with large amounts of fluid removed approximately once a week. The patient now presents for colonoscopic evaluation due to the patients application for liver transplant. The patient was appraised of the risks of the procedure including the risk of perforation, phlebitis, untoward reaction to medication, bleeding and missed lesions. The patient verbalized her understanding and desired to have the procedure performed. DESCRIPTION OF PROCEDURE: The patient was given the medications by the anesthesia department. She had continuous pulse oximetry, ECG monitoring and intermittent blood pressure monitoring during the examination. She was placed in the left lateral decubitus position. Digital rectal examination was performed and revealed normal anal sphincter tone and no masses. The flexible Olympus pediatric colonoscope was used to intubate the rectum. A view of the colon was developed sequentially to the cecum. Upon insertion and withdrawal, no mucosal lesions were encountered. The mucosa was slightly friable with manipulation of the scope. The prep was noted to be fair to poor in certain areas with semisolid stool that we were unable to suction clear but no polyps was otherwise noted. The scope was removed from the patient who tolerated the procedure well and was sent back to OP recovery in good condition.
[2024-03-23 08:18] VITALS: BP 108/64; PULSE 73; RESP 18; TEMP 97.6
== END 2024-03-23 08:38 | disposition home or self-care (01) ==
LOC: SDC 05:37
PROVIDERS: ATTEND Family Medicine
DX: Z12.11 Encounter for screening for malignant neoplasm of colon (principal); E11.9 Type 2 diabetes mellitus without complications; Z85.3 Personal history of malignant neoplasm of breast
CPT/HCPCS: 36415; 80053; 82947; 85025; 85610; 85730; J2250; J2704

== ENCOUNTER 2024-04-24 21:17 | Emergency (ER) | payer BC ==
[2024-04-24 21:25] VITALS: TEMP 97.9; O2SAT 100
--- NOTE | 2024-04-24 21:28 | ERPHSYRPT ---
- History of Present Illness Time Seen by Provider: 04/24/24 21:28 Source: patient Exam Limitations: no limitations Patient Subjective Stated Complaint: CRAMPS Triage Nursing Assessment: patient states that she feels like she is dehydrated, having muscle cramops all over. 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 We also obtained additional, independent history from the paramedics who brought her into the emergency department. Patient has had bilateral leg cramps for the last couple of days. Patient has a history of liver failure with cirrhosis and every Friday she obtains a paracentesis. She also has chronic renal failure. Patient has a history of thrombocytopenia that is chronic, hypothyroidism, diabetes, and asthma. Patient states that the patient has labs obtained every . Patient's and patient states that she cannot take acetaminophen or NSAID products for pain control. I did review the most recent laboratory data results that were obtained during her outpatient clinic visit on 04/13/2024. Patient's platelet count on that date is 96. Patient has chronic ane ciarra with a hemoglobin 97 and hematocrit 29.5. On the same date, the patient had a sodium of 130, potassium 4.6, chloride of 101 and a CO2 of 22 with a blood sugar of 132 and a BUN/creatinine of 19/1.53. GFR was measured at 37.8. The albumin level was 3.5. The anion gap was 12.3. Method of Injury: other (Injury) Occurred: days ago (Last couple of days) Quality: intermittent, aching Severity of Pain-Max: moderate Severity of Pain-Current: moderate Lower Extremities Pain: hip: bilateral, leg: bilateral, thigh: bilateral Modifying Factors: Improves With: movement Associated Symptoms: none Allergies/Adverse Reactions: albuterol Allergy (Severe, Verified 04/24/24 21:25) Difficulty Breathing resp. distress ciprofloxacin [From Cipro] Allergy (Severe, Verified 04/24/24 21:25) Swelling Sulfa (Sulfonamide Antibiotics) Allergy (Severe, Verified 04/24/24 21:25) Tightness of Throat throat swells flu shot Allergy (Uncoded 04/24/24 21:25) Home Medications: Glimepiride 4 mg [Amaryl 4 mg] 4 mg PO DAILY 12/11/19 [History] Levothyroxine Sodium 75 mcg PO DAILY 12/11/19 [History] Spironolactone 50 mg PO DAILY 04/18/21 [History] Budesonide 0.5 mg/2 ml [Pulmicort 0.5 mg/2 ml Respules] 0.5 mg IH DAILY 03/17/24 [History] Cholecalciferol (Vitamin D3) [Vitamin D] 400 unit PO DAILY 03/17/24 [History] Lactulose 10 gm PO TID 03/17/24 [History] Ondansetron [Ondansetron Odt ] 4 mg PO Q6H PRN 03/17/24 [History] Rifaximin [Xifaxan] 550 mg PO DAILY 03/17/24 [History] Torsemide [Soaanz] 40 mg PO DAILY 03/17/24 [History] Zinc Gluconate [Zinc] 30 mg PO DAILY 03/17/24 [History] Hx Tetanus, Diphtheria Vaccination/Date Given: No Hx Influenza Vaccination/Date Given: No Hx Pneumococcal Vaccination/Date Given: No Travel Risk - International Travel Have you traveled outside of the country in past 3 weeks: No - Emerging Infectious Disease Are you exhibiting symptoms associated with any current EIDs: No - Review of Systems Constitutional: No Symptoms Eyes: No Symptoms Ears, Nose, & Throat: No Symptoms Respiratory: No Symptoms Cardiac: No Symptoms Abdominal/Gastrointestinal: No Symptoms Genitourinary Symptoms: No Symptoms Musculoskeletal: Myalgias Skin: No Symptoms Neurological: No Symptoms Psychological: No Symptoms Endocrine: No Symptoms Hematologic/Lymphatic: No Symptoms Immunological/Allergic: No Symptoms All Other Systems: Reviewed and Negative - Past Medical History Pertinent Past Medical History: Yes Neurological History: No Pertinent History ENT History: No Pertinent History Cardiac History: Other Respiratory History: Asthma Endocrine Medical History: Diabetes Type II, Liver Disease Musculoskeletal History: No Pertinent History GI Medical History: Cirrhosis, Gallbladder Disease History: No Pertinent History Psycho-Social History: No Pertinent History Female Reproductive Disorders: Breast Cancer Other Medical History: PMH: 30 RADIATION TREATMENTS FOR BREAST CANCER 5 YEARS AGO, 50+ PARACENTESIS OF ABDOMINAL FLUID SECONDARY TO ASCITIES AND LIVER FAILURE. PSH: COMPLETE HYSTERCTOMY, COLON POLYP REMOVAL, BREAST CANCER LUMP REMOVAL R SIDE - Past Surgical History Past Surgical History: Yes Neuro Surgical History: No Pertinent History Cardiac: No Pertinent History Respiratory: No Pertinent History Gastrointestinal: Hemorrhoidectomy Genitourinary: No Pertinent History Musculoskeletal: No Pertinent History Female Surgical History: Hysterectomy, Lumpectomy Other Surgical History: exploratory lap.,right foot tendon, anal fissures Significant Family History: heart disease, diabetes, hypertension - Social History Smoking Status: Never smoker Exposure to second hand smoke: No Alcohol Use: None Drug Use: none Patient Lives Alone: No - Nursing Vital Signs Nursing Vital Signs: Initial Vital Signs Temperature 97.9 F 04/24/24 21:19 Pulse Rate 93 H 04/24/24 21:19 Respiratory Rate 16 04/24/24 21:19 Blood Pressure 107/50 04/24/24 21:19 O2 Sat by Pulse Oximetry 100 04/24/24 21:19 Pain Scale Pain Intensity 10 - Physical Exam General Appearance: no apparent distress, alert, anxiety Eyes, Ears, Nose, Throat Exam: normal ENT inspection, dry mucous membranes Neck Exam: normal inspection, non-tender, supple, full range of motion Cardiovascular/Respiratory Exam: chest non-tender, normal breath sounds, regular rate/rhythm, heart sounds normal, no respiratory distress Gastrointestinal/Abdominal Exam: non-tender, soft Back Exam: normal inspection, normal range of motion, No CVA tenderness, No vertebral tenderness Hips Exam: bilateral: normal inspection, normal range of motion, no evidence of injury, other (Generalized crampy tenderness) Legs Exam: bilateral leg: normal inspection, normal range of motion, no evidence of injury, other (Generalized crampy tenderness) Knees Exam: bilateral knee: normal inspection, normal range of motion, no evidence of injury, other (Generalized crampy tenderness) Ankle Exam: right ankle: other (Neurolysed crampy tenderness), bilateral ankle: normal inspection, normal range of motion, no evidence of injury Foot Exam: bilateral foot: normal inspection, normal range of motion, no evidence of injury, other (Generalized crampy tenderness) Neuro/Tendon Exam: normal sensation, normal motor functions, normal tendon functions, responds to pain, no evidence tendon injury Mental Status Exam: alert, oriented x 3, cooperative Skin Exam: normal color, warm, dry SpO2 Interpretation: normal SpO2: 100 O2 Delivery: Room Air - Course Nursing assessment & vital signs reviewed: Yes Ordered Tests: Active Orders 24 hr Category Date Time Status IV Insertion STAT Care 04/24/24 22:15 Active CBC W DIFF Stat Lab 04/24/24 22:49 Completed CMP Stat Lab 04/24/24 22:49 Completed MAGNESIUM Stat Lab 04/24/24 22:49 Completed UA W/RFX UR CULTURE Stat Lab 04/25/24 00:04 Completed Medication Summary Generic Name Dose Route Start Last Admin Trade Name Tiffani PRN Reason Stop Dose Admin Sodium Chloride 1,000 mls @ 100 mls/hr 04/24/24 22:15 04/25/24 00:04 Sodium Chloride 0.9% 1000 Ml IV 05/24/24 22:14 500 mls/hr .Q10H [facility] Infusion Lab/Rad Data: Laboratory Result Diagrams 04/24/24 22:49 04/24/24 22:49 Laboratory Results 04/25/24 04/24/24 04/24/24 Range/Units 00:04 22:49 22:49 WBC 13.0 H (3.98-10.04) x10^3/uL RBC 2.90 L (3.93-5.22) x10^6/uL Hgb 9.9 L (11.2-15.7) g/dL Hct 29.7 L (34.1-44.9) % MCV 102.4 H (79.4-94.8) fL MCH 34.1 H (25.6-32.2) pg MCHC 33.3 (32.2-35.5) g/dL RDW 13.6 (11.7-14.4) % Plt Count 109 L (182-369) x10^3/uL MPV 9.5 (9.4-12.3) fL Gran % 65.9 (34.0-71.1) % Immature Gran % (Auto) 0.5 H (0.001-0.429) % Nucleat RBC Rel Count 0.0 (0.00-0.2) % Eos # (Auto) 0.63 H (0.04-0.36) x10^3/uL Immature Gran # (Auto) 0.07 H (0.001-0.031) x10^3u/L Absolute Lymphs (auto) 1.12 L (1.18-3.74) x10^3/uL Absolute Monos (auto) 2.56 H (0.24-0.86) x10^3/uL Absolute Nucleated RBC 0.00 (0.00-0.012) x10^3u/L Lymphocytes % 8.6 L (19.3-51.7) % Monocytes % 19.7 H (4.7-12.5) % Eosinophils % 4.8 (0.7-5.8) % Basophils % 0.5 (0.1-1.2) % Absolute Granulocytes 8.56 H (1.56-6.13) x10^3/uL Basophils # 0.06 (0.01-0.08) x10^3/uL Sodium 126 L (135-145) mmol/L Potassium 4.5 (3.5-5.1) mmol/L Chloride 96 L (98-107) mmol/L Carbon Dioxide 19 L (22-30) mmol/L Anion Gap 15.0 (5-15) MEQ/L BUN 27 H (7-17) mg/dL Creatinine 1.64 H (0.52-1.04) mg/dL Estimated GFR 34.8 ML/MIN Glucose 192 H (74-106) mg/dL Calcium 8.7 (8.4-10.2) mg/dL Magnesium 2.0 (1.6-2.3) mg/dL Total Bilirubin 3.00 H (0.2-1.3) mg/dL AST 61 H (14-36) U/L ALT 33 (0-35) U/L Alkaline Phosphatase 163 H (38-126) U/L Serum Total Protein 5.6 L (6.3-8.2) g/dL Albumin 3.2 L (3.5-5.0) g/dL Urine Color Yellow (Yellow) Urine Appearance Clear (Clear) Urine pH 5.5 (4.6-8.0) Ur Specific [place] 1.010 (1.005-1.030) Urine Protein Negative (Negative) Urine Glucose (UA) Negative (Negative) mg/dL Urine Ketones Trace A (Negative) Urine Blood Negative (Negative) Urine Nitrite Negative (Negative) Urine Bilirubin Negative (Negative) Urine Urobilinogen 0.2 (0.2) mg/dL Ur Leukocyte Esterase Negative (Negative) U Hyaline Cast (Auto) 11-20 (0-2) /LPF Urine Microscopic RBC 0-2 (0-5) /HPF Urine Microscopic WBC 0-2 (0-5) /HPF Ur Epithelial Cells None Seen (None Seen) /HPF Urine Bacteria None Seen (None Seen) /HPF Urine Culture Reflexed NO (NO) Slides for Path Review YES - Progress Progress: improved, pain not gone completely, re-examined Progress Note: 04/24/24 22:39 My medical decision making and the assignment of moderate complexity to this patient's medical issue is based on review of the patient's past medical history, review of patient's outpatient lab data results, review of the patient's medication list, review of patient drug allergy list, history present illness and physical findings on examination. The workup in this patient i ncludes a CBC, CMP, placement of intravenous line with infusion of normal saline solution and magnesium level. I think that this patient would safely benefit from a very low-dose of Demerol and Zofran intravenously if her GFR is in an appropriate range. Differential diagnosis includes but is not limited to dehydration, urinary tract infection, electrolyte abnormalities 04/25/24 00:54 I interpreted the laboratory data results. I compared these results to her outpatient labs that I reviewed dated 04/13/2024. There are no major differences in her laboratory results. Her urinalysis is free of infection. She has trace ketones present which suggest to me that she has mild dehydration. Patient has liver disease and has renal disease and she has been told that she should not take Tylenol or NSAIDs. I did discuss with the patient and her spouse regarding using low-dose narcotic medication. However, the patient and the patient's spouse states that the patient is feeling better. Counseled pt/family regarding: lab results, diagnosis, need for follow-up Medical Desision Making - Independent Historian Additional History obtained from: Spouse - Diagnostic Testing Diagnostic test were ordered, analyzed, and reviewed by me: Yes - Risk of complications Low Risk: Low risk of morbidity from additional dx testing or treatment - Departure Departure Disposition: Home Clinical Impression: Cramps, muscle, general, Mild dehydration Condition: Stable Critical Care Time: No Referrals: DAVON BURTON NP [Primary Care Provider] - Follow up/PCP as directed Additional Instructions: Take plenty fluids. Take your medication as prescribed. Call your primary care provider, java programming professor and coil shaper/liver specialist on 04/26/2024 to make arrangements for follow-up appointment to be seen in the next 3 to 5 days.
[2024-04-24] MEDS ORDERED: Sodium Chloride 0.9% 1000 ML 1,000 ML ONE (22:49)
[2024-04-24] MEDS: Sodium Chloride 0.9% 1000 ML 1,000 ML IV SCH (22:50)
[2024-04-24 22:51] LABS: Absolute Neutrophil Ct (ANC) 8.56 x10^3/uL (1.56-6.13); BASOPHIL % 0.5 % (0.1-1.2); Basophil (Absolute #) 0.06 x10^3/uL (0.01-0.08); Eosinophil % 4.8 % (0.7-5.8); Eosinophil (Absolute #) 0.63 x10^3/uL (0.04-0.36); Hematocrit 29.7 % (34.1-44.9); Hemoglobin 9.9 g/dL (11.2-15.7); IMMATURE GRAN # 0.07 x10^3u/L (0.001-0.031); IMMATURE GRAN % 0.5 % (0.001-0.429); Lymphocyte (Absolute #) 1.12 x10^3/uL (1.18-3.74); Lymphocytes % 8.6 % (19.3-51.7); Mean Cell Volume 102.4 fL (79.4-94.8); Mean Corpuscular Hemoglobin 34.1 pg (25.6-32.2); Mean Corpuscular Hgb Concent. 33.3 g/dL (32.2-35.5); Mean Platelet Volume 9.5 fL (9.4-12.3); Monocyte (Absolute #) 2.56 x10^3/uL (0.24-0.86); Monocytes % 19.7 % (4.7-12.5); Neutrophil % 65.9 % (34.0-71.1); Platelet Count 109 x10^3/uL (182-369); Red Cell Distribution Width 13.6 % (11.7-14.4)
[2024-04-24 23:01] LABS: ALBUMIN 3.2 g/dL (3.5-5.0); Calcium 8.7 mg/dL (8.4-10.2); Creatinine 1 1.64 mg/dL (0.52-1.04); EST GLOMERULAR FILTRATION RATE 34.8 ML/MIN; Potassium 4.5 mmol/L (3.5-5.1); Total Protein 5.6 g/dL (6.3-8.2)
[2024-04-25 00:35] LABS: Appearance Clear (Clear); Bacteria None Seen /HPF (None Seen); Bilirubin Negative (Negative); Blood Negative (Negative); Epithelial Cells None Seen /HPF (None Seen); Glucose, Urine Negative (Negative); Ketones Trace (Negative); Leukocyte Esterase Negative (Negative); Nitrite Negative (Negative); Ph 5.5 (4.6-8.0); Protein,Urine Dip Negative (Negative); RBC 0-2 /HPF (0-5); Urobilinogen 0.2 mg/dL (0.2); WBC 0-2 /HPF (0-5)
[2024-04-25 00:36] LABS: Slide Review 1 YES
[2024-04-25 00:38] LABS: ADD URINE CULTURE? NO (NO)
[2024-04-25 01:01] VITALS: BP 91/57; PULSE 86; RESP 18
== END 2024-04-25 01:55 | disposition home or self-care (01) ==
LOC: ED 21:17
DX: E86.0 Dehydration (principal); R25.2 Cramp and spasm; E11.22 Type 2 diabetes mellitus with diabetic chronic kidney disease; N18.9 Chronic kidney disease, unspecified; Z79.84 Long term (current) use of oral hypoglycemic drugs; Z79.899 Other long term (current) drug therapy
CPT/HCPCS: 36000; 36415; 80053; 81001; 83735; 85025; 99284

== ENCOUNTER 2024-04-30 01:48 | Emergency (ER) | payer BC ==
[2024-04-30 02:15] VITALS: RESP 14; TEMP 97.1; O2SAT 100
[2024-04-30] MEDS: SUBLIMAZE 100 MCG/2 ML IM ONE ×2 (02:33→02:39)
[2024-04-30] MEDS ORDERED: Norflex 60 MG/2 ML ONE (02:36)
[2024-04-30] MEDS ORDERED: SUBLIMAZE 100 MCG/2 ML ONE (02:37)
[2024-04-30] MEDS: Norflex 60 MG/2 ML IM ONE (02:38)
--- NOTE | 2024-04-30 02:50 | ERPHSYRPT ---
- History of Present Illness Time Seen by Provider: 04/30/24 02:01 Source: patient Exam Limitations: no limitations Patient Subjective Stated Complaint: pt states that she is having leg cramps Triage Nursing Assessment: pt ambulated into the er; pt is axo x4; c/o BLE; pt states 10/10 pain to BLE; skin jaundice, warm, dry; no respiratory distress present; vitals wnl Physician History: 63-year-old female with multiple medical problems including cirrhosis needing regular paracentesis twice a week, chronic kidney disease, diabetes mellitus, hypothyroidism, hyponatremia presented in the ER with complains of aches and p ains all over especially in the legs with cramping. Patient reports having similar symptoms in the past and was recently seen in this ER. She had paracentesis done yesterday with 5 L fluid taken out. Denies any abdominal pain. No fever or chills reported. Allergies/Adverse Reactions: albuterol Allergy (Severe, Verified 04/30/24 01:57) Difficulty Breathing resp. distress ciprofloxacin [From Cipro] Allergy (Severe, Verified 04/30/24 01:57) Swelling Sulfa (Sulfonamide Antibiotics) Allergy (Severe, Verified 04/30/24 01:57) Tightness of Throat throat swells doxycycline Adverse Reaction (Verified 04/30/24 01:57) Vomiting flu shot Allergy (Uncoded 04/30/24 01:57) Home Medications: Levothyroxine Sodium 75 mcg PO DAILY 12/11/19 [History] Spironolactone 50 mg PO DAILY 04/18/21 [History] Cholecalciferol (Vitamin D3) [Vitamin D] 400 unit PO DAILY 03/17/24 [History] Lactulose 10 gm PO TID 03/17/24 [History] Ondansetron [Ondansetron Odt ] 4 mg PO Q6H PRN 03/17/24 [History] Rifaximin [Xifaxan] 550 mg PO DAILY 03/17/24 [History] Torsemide [Soaanz] 40 mg PO DAILY 03/17/24 [History] Zinc Gluconate [Zinc] 30 mg PO DAILY 03/17/24 [History] Glipizide 5 mg [Glucotrol 5 MG] 5 mg PO DAILY 04/30/24 [History] Hx Tetanus, Diphtheria Vaccination/Date Given: No Hx Influenza Vaccination/Date Given: No Hx Pneumococcal Vaccination/Date Given: No Travel Risk - International Travel Have you traveled outside of the country in past 3 weeks: No - Emerging Infectious Disease Are you exhibiting symptoms associated with any current EIDs: No - Review of Systems Constitutional: Fatigue, Weakness Eyes: No Symptoms Ears, Nose, & Throat: No Symptoms Respiratory: No Symptoms Cardiac: No Symptoms Abdominal/Gastrointestinal: No Symptoms Genitourinary Symptoms: No Symptoms Musculoskeletal: Myalgias Skin: No Symptoms Neurological: No Symptoms Psychological: No Symptoms Endocrine: No Symptoms Hematologic/Lymphatic: No Symptoms Immunological/Allergic: No Symptoms - Past Medical History Pertinent Past Medical History: Yes Neurological History: No Pertinent History ENT History: No Pertinent History Cardiac History: Other Respiratory History: Asthma Endocrine Medical History: Diabetes Type II, Liver Disease Musculoskeletal History: No Pertinent History GI Medical History: Cirrhosis, Gallbladder Disease History: No Pertinent History Psycho-Social History: No Pertinent History Female Reproductive Disorders: Breast Cancer Other Medical History: PMH: 30 RADIATION TREATMENTS FOR BREAST CANCER 5 YEARS AGO, 50+ PARACENTESIS OF ABDOMINAL FLUID SECONDARY TO ASCITIES AND LIVER FAILURE. PSH: COMPLETE HYSTERCTOMY, COLON POLYP REMOVAL, BREAST CANCER LUMP REMOVAL R SIDE - Past Surgical History Past Surgical History: Yes Neuro Surgical History: No Pertinent History Cardiac: No Pertinent History Respiratory: No Pertinent History Gastrointestinal: Hemorrhoidectomy Genitourinary: No Pertinent History Musculoskeletal: No Pertinent History Female Surgical History: Hysterectomy, Lumpectomy Other Surgical History: exploratory lap.,right foot tendon, anal fissures Significant Family History: heart disease, diabetes, hypertension - Social History Smoking Status: Never smoker Exposure to second hand smoke: No Alcohol Use: None Drug Use: none Patient Lives Alone: No - Social Determinants of Health Will the patient participate in the screening: Yes Do you worry about a steady place to live?: No Do you have any problems with any of the following?: No known problems In the past 12 months,have you had to go without utilities?: No Transportation Issues: No Has anyone in your support network made you feel unsafe?: No Have you or anyone in your house had to go without enough: No - Nursing Vital Signs Nursing Vital Signs: Initial Vital Signs Pulse Rate 87 04/30/24 02:00 Blood Pressure 95/45 04/30/24 02:00 O2 Sat by Pulse Oximetry 100 04/30/24 02:00 Pain Scale Pain Intensity 7 - Physical Exam General Appearance: no apparent distress, alert Eye Exam: PERRL/EOMI Ears, Nose, Throat Exam: normal ENT inspection Neck Exam: normal inspection Respiratory Exam: diminished breath sounds Cardiovascular Exam: regular rate/rhythm, normal heart sounds, edema (2+ pitting edema bilaterally) Gastrointestinal/Abdomen Exam: soft, normal bowel sounds, distention (Mild) Back Exam: normal inspection, normal range of motion Extremity Exam: normal inspection, normal range of motion Neurologic Exam: alert, oriented x 3, cooperative Skin Exam: jaundice SpO2 Interpretation: normal SpO2: 100 O2 Delivery: Room Air Ordered Tests: Active Orders 24 hr Category Date Time Status CBC W DIFF Stat Lab 04/30/24 03:17 Completed CMP Stat Lab 04/30/24 03:17 Completed LIPASE Stat Lab 04/30/24 03:17 Completed MAG [MAGNESIUM] Stat Lab 04/30/24 03:17 Completed UA W/RFX UR CULTURE Stat Lab 04/30/24 03:17 Completed Medication Summary Discontinued Medications Generic Name Dose Route Start Last Admin Trade Name Tiffani PRN Reason Stop Dose Admin Fentanyl Citrate 50 mcg 04/30/24 02:30 04/30/24 02:33 Fentanyl Citrate 100 Mcg/2 Ml* Vial IM 04/30/24 02:31 Not Given STAT ONE Fentanyl Citrate 25 mcg 04/30/24 02:32 04/30/24 02:39 Fentanyl Citrate 100 Mcg/2 Ml* Vial IM 04/30/24 02:33 25 mcg STAT ONE Administration Fentanyl Citrate Confirm 04/30/24 02:37 Fentanyl Citrate 100 Mcg/2 Ml* Vial Administered 04/30/24 02:38 Dose 100 mcg .ROUTE .STK-MED ONE Orphenadrine Citrate 60 mg 04/30/24 02:29 04/30/24 02:38 Orphenadrine Citrate 60 Mg/2 Ml Vial IM 04/30/24 02:30 60 mg STAT ONE Administration Orphenadrine Citrate Confirm 04/30/24 02:36 Orphenadrine Citrate 60 Mg/2 Ml Vial Administered 04/30/24 02:37 Dose 60 mg .ROUTE .STK-MED ONE Lab/Rad Data: Laboratory Result Diagrams 04/30/24 03:17 04/30/24 03:17 Laboratory Results 0604/30/24 04/30/24 Range/Units 03:17 03:17 03:17 WBC (3.98-10.04) x10^3/uL RBC (3.93-5.22) x10^6/uL Hgb (11.2-15.7) g/dL Hct (34.1-44.9) % MCV (79.4-94.8) fL MCH (25.6-32.2) pg MCHC (32.2-35.5) g/dL RDW (11.7-14.4) % Plt Count (182-369) x10^3/uL MPV (9.4-12.3) fL Gran % (34.0-71.1) % Immature Gran % (Auto) (0.001-0.429) % Nucleat RBC Rel Count (0.00-0.2) % Eos # (Auto) (0.04-0.36) x10^3/uL Immature Gran # (Auto) (0.001-0.031) x10^3u/L Absolute Lymphs (auto) (1.18-3.74) x10^3/uL Absolute Monos (auto) (0.24-0.86) x10^3/uL Absolute Nucleated RBC (0.00-0.012) x10^3u/L Lymphocytes % (19.3-51.7) % Monocytes % (4.7-12.5) % Eosinophils % (0.7-5.8) % Basophils % (0.1-1.2) % Absolute Granulocytes (1.56-6.13) x10^3/uL Basophils # (0.01-0.08) x10^3/uL Sodium 123 L (135-145) mmol/L Potassium 4.7 (3.5-5.1) mmol/L Chloride 95 L (98-107) mmol/L Carbon Dioxide 22 (22-30) mmol/L Anion Gap 11.7 (5-15) MEQ/L BUN 31 H (7-17) mg/dL Creatinine 1.57 H (0.52-1.04) mg/dL Estimated GFR 36.6 ML/MIN Glucose 113 H (74-106) mg/dL Calcium 8.4 (8.4-10.2) mg/dL Magnesium 1.8 (1.6-2.3) mg/dL Total Bilirubin 2.60 H (0.2-1.3) mg/dL AST 82 H (14-36) U/L ALT 39 H (0-35) U/L Alkaline Phosphatase 152 H (38-126) U/L Serum Total Protein 5.2 L (6.3-8.2) g/dL Albumin 2.9 L (3.5-5.0) g/dL Lipase 494 H (23-300) U/L Urine Color Yellow (Yellow) Urine Appearance Clear (Clear) Urine pH 5.5 (4.6-8.0) Ur Specific [place] 1.010 (1.005-1.030) Urine Protein Negative (Negative) Urine Glucose (UA) Negative (Negative) mg/dL Urine Ketones Negative (Negative) Urine Blood Negative (Negative) Urine Nitrite Negative (Negative) Urine Bilirubin Negative (Negative) Urine Urobilinogen 0.2 (0.2) mg/dL Ur Leukocyte Esterase Negative (Negative) U Hyaline Cast (Auto) 11-20 (0-2) /LPF Urine Microscopic RBC 0-2 (0-5) /HPF Urine Microscopic WBC 0-2 (0-5) /HPF Ur Epithelial Cells None Seen (None Seen) /HPF Urine Bacteria None Seen (None Seen) /HPF Urine Culture Reflexed NO (NO) 04/30/24 Range/Units 03:17 WBC 11.0 H (3.98-10.04) x10^3/uL RBC 2.49 L (3.93-5.22) x10^6/uL Hgb 8.6 L (11.2-15.7) g/dL Hct 24.5 L (34.1-44.9) % MCV 98.4 H (79.4-94.8) fL MCH 34.5 H (25.6-32.2) pg MCHC 35.1 (32.2-35.5) g/dL RDW 13.4 (11.7-14.4) % Plt Count 103 L (182-369) x10^3/uL MPV 9.6 (9.4-12.3) fL Gran % 64.4 (34.0-71.1) % Immature Gran % (Auto) 0.5 H (0.001-0.429) % Nucleat RBC Rel Count 0.0 (0.00-0.2) % Eos # (Auto) 0.95 H (0.04-0.36) x10^3/uL Immature Gran # (Auto) 0.06 H (0.001-0.031) x10^3u/L Absolute Lymphs (auto) 0.88 L (1.18-3.74) x10^3/uL Absolute Monos (auto) 1.98 H (0.24-0.86) x10^3/uL Absolute Nucleated RBC 0.00 (0.00-0.012) x10^3u/L Lymphocytes % 8.0 L (19.3-51.7) % Monocytes % 18.0 H (4.7-12.5) % Eosinophils % 8.6 H (0.7-5.8) % Basophils % 0.5 (0.1-1.2) % Absolute Granulocytes 7.11 H (1.56-6.13) x10^3/uL Basophils # 0.05 (0.01-0.08) x10^3/uL Sodium (135-145) mmol/L Potassium (3.5-5.1) mmol/L Chloride (98-107) mmol/L Carbon Dioxide (22-30) mmol/L Anion Gap (5-15) MEQ/L BUN (7-17) mg/dL Creatinine (0.52-1.04) mg/dL Estimated GFR ML/MIN Glucose (74-106) mg/dL Calcium (8.4-10.2) mg/dL Magnesium (1.6-2.3) mg/dL Total Bilirubin (0.2-1.3) mg/dL AST (14-36) U/L ALT (0-35) U/L Alkaline Phosphatase (38-126) U/L Serum Total Protein (6.3-8.2) g/dL Albumin (3.5-5.0) g/dL Lipase (23-300) U/L Urine Color (Yellow) Urine Appearance (Clear) Urine pH (4.6-8.0) Ur Specific [place] (1.005-1.030) Urine Protein (Negative) Urine Glucose (UA) (Negative) mg/dL Urine Ketones (Negative) Urine Blood (Negative) Urine Nitrite (Negative) Urine Bilirubin (Negative) Urine Urobilinogen (0.2) mg/dL Ur Leukocyte Esterase (Negative) U Hyaline Cast (Auto) (0-2) /LPF Urine Microscopic RBC (0-5) /HPF Urine Microscopic WBC (0-5) /HPF Ur Epithelial Cells (None Seen) /HPF Urine Bacteria (None Seen) /HPF Urine Culture Reflexed (NO) - Progress Progress: improved Progress Note: 04/30/24 03:58 63-year-old is evaluated in the ER for cramping, aches and pains. Patient has 5 L paracentesis done earlier yesterday. She is not confused or altered at all. She is given Norflex and a small dose of fentanyl, on reevaluation she is feel ing better. Baseline workup showed normal white count, hemoglobin of 8.6 and platelets more than 100. Patient has chronic anemia and thrombocytopenia. Has stable CKD. Patient sodium is 123 which is a drop from 125 few days ago but patient does have paracentesis done earlier. I have offered her observation admission and fluids for gentle hydration but she does not want it and I agreed that it will increase her ascites. Patient already goes twice a week for paracentesis. Patient is advised to restrict free water and outpatient follow- up with primary care/nephrology and hepatology. Mildly elevated lipase but patient does not have any tenderness. I believe it is secondary to her chronic disease process. Discussed signs symptoms of worsening hyponatremia needing return to ER which patient/ seem understanding. Stable for discharge. Counseled pt/family regarding: lab results, diagnosis, need for follow-up Medical Desision Making - Independent Historian Additional History obtained from: Spouse - Diagnostic Testing Diagnostic test were ordered, analyzed, and reviewed by me: Yes - Risk of complications The pt has a mod risk of morbidity or mortality based on: Need for prescription drug management - Departure Departure Disposition: Home Clinical Impression: Bilateral leg cramps, Hyponatremia Condition: Stable Critical Care Time: No Referrals: DAVON BURTON NP [Primary Care Provider] - Follow up with PCP 1 day MARVIN SNEED [CONSULTING PHYSICIAN] - Follow up/PCP as directed (Call in the morning for reevaluation.) Instructions: Muscle spasms (muscle cramps), Hyponatremia Additional Instructions: Decrease free water intake. Follow-up with your primary care/nephrology and hepatology for reevaluation. Return to ER for any worsening.
[2024-04-30 03:22] LABS: Absolute Neutrophil Ct (ANC) 7.11 x10^3/uL (1.56-6.13); BASOPHIL % 0.5 % (0.1-1.2); Basophil (Absolute #) 0.05 x10^3/uL (0.01-0.08); Eosinophil % 8.6 % (0.7-5.8); Eosinophil (Absolute #) 0.95 x10^3/uL (0.04-0.36); Hematocrit 24.5 % (34.1-44.9); Hemoglobin 8.6 g/dL (11.2-15.7); IMMATURE GRAN # 0.06 x10^3u/L (0.001-0.031); IMMATURE GRAN % 0.5 % (0.001-0.429); Lymphocyte (Absolute #) 0.88 x10^3/uL (1.18-3.74); Mean Cell Volume 98.4 fL (79.4-94.8); Mean Corpuscular Hemoglobin 34.5 pg (25.6-32.2); Mean Corpuscular Hgb Concent. 35.1 g/dL (32.2-35.5); Mean Platelet Volume 9.6 fL (9.4-12.3); Monocyte (Absolute #) 1.98 x10^3/uL (0.24-0.86); Neutrophil % 64.4 % (34.0-71.1); Platelet Count 103 x10^3/uL (182-369); Red Blood Count 2.49 x10^6/uL (3.93-5.22); Red Cell Distribution Width 13.4 % (11.7-14.4)
[2024-04-30 03:29] LABS: Appearance Clear (Clear); Bacteria None Seen /HPF (None Seen); Bilirubin Negative (Negative); Blood Negative (Negative); Epithelial Cells None Seen /HPF (None Seen); Glucose, Urine Negative (Negative); Ketones Negative (Negative); Leukocyte Esterase Negative (Negative); Nitrite Negative (Negative); Ph 5.5 (4.6-8.0); Protein,Urine Dip Negative (Negative); RBC 0-2 /HPF (0-5); Urobilinogen 0.2 mg/dL (0.2); WBC 0-2 /HPF (0-5)
[2024-04-30 03:31] LABS: ADD URINE CULTURE? NO (NO)
[2024-04-30 03:33] LABS: ALBUMIN 2.9 g/dL (3.5-5.0); ANION GAP 11.7 MEQ/L (5-15); BILIRUBIN,TOTAL 2.6 mg/dL (0.2-1.3); Calcium 8.4 mg/dL (8.4-10.2); Creatinine 1 1.57 mg/dL (0.52-1.04); EST GLOMERULAR FILTRATION RATE 36.6 ML/MIN; Potassium 4.7 mmol/L (3.5-5.1); Total Protein 5.2 g/dL (6.3-8.2)
[2024-04-30 04:04] VITALS: BP 102/57; PULSE 82
[2024-04-30 04:47] LABS: Slide Review 1 YES
== END 2024-04-30 04:30 | disposition home or self-care (01) ==
LOC: ED 01:48
DX: R25.2 Cramp and spasm (principal); E87.1 Hypo-osmolality and hyponatremia; E11.22 Type 2 diabetes mellitus with diabetic chronic kidney disease; N18.9 Chronic kidney disease, unspecified; Z79.84 Long term (current) use of oral hypoglycemic drugs; Z79.899 Other long term (current) drug therapy
CPT/HCPCS: 36415; 80053; 81001; 83690; 83735; 85025; 96372; 99283; J2360; J3010

== ENCOUNTER 2024-09-23 14:50 | Emergency (ER) | payer MEDICARE ==
[2024-09-23 15:32] VITALS: TEMP 99.4
[2024-09-23 16:49] LABS: ABO TYPING O; Antibody Screen NEGATIVE (NEGATIVE); RH TYPING NEGATIVE
[2024-09-23 16:52] LABS: CROSS MATCH (PRBC) COMPATIBLE (COMPATIBLE)
[2024-09-23 16:55] LABS: CROSS MATCH (PRBC) COMPATIBLE (COMPATIBLE)
[2024-09-23] MEDS ORDERED: Sodium Chloride 0.9% 500 ML 500 ML IV ONE (16:58)
[2024-09-23] MEDS: Sodium Chloride 0.9% 500 ML 500 ML IV SCH (17:01)
--- NOTE | 2024-09-23 17:21 | ERPHSYRPT ---
- History of Present Illness Time Seen by Provider: 09/23/24 14:57 Source: patient, family Exam Limitations: no limitations Patient Subjective Stated Complaint: pt here for abnormal labs today. pt was hgb is low. she had a recent liver transplant. she co being week Triage Nursing Assessment: pt alert, arrived per wc, resp easy, skin w/d/pale. chest clear, has dressing to inscion site, edema to lower legs taht pt states is normal for her. Physician History: 64-year-old female with a history of diabetes mellitus, liver transplant on August 18, 2024 with postoperative anemia sent in ER by transplant team with her routine lab work showed hemoglobin of 6.5. Patient hemoglobin was in low sevens last week. Reports getting short winded at times with exertion. Denies any abdominal pain. No dark stool, nausea or vomiting. No chest pain or palpitations. Allergies/Adverse Reactions: albuterol Allergy (Severe, Verified 09/23/24 15:04) Difficulty Breathing resp. distress ciprofloxacin [From Cipro] Allergy (Severe, Verified 09/23/24 15:04) Swelling Sulfa (Sulfonamide Antibiotics) Allergy (Severe, Verified 09/23/24 15:04) Tightness of Throat throat swells doxycycline Adverse Reaction (Verified 09/23/24 15:04) Vomiting flu shot Allergy (Uncoded 09/23/24 15:04) Home Medications: Levothyroxine Sodium 75 mcg PO DAILY 12/11/19 [History] Spironolactone 50 mg PO DAILY 04/18/21 [History] Cholecalciferol (Vitamin D3) [Vitamin D] 400 unit PO DAILY 03/17/24 [History] Lactulose 10 gm PO TID 03/17/24 [History] Ondansetron [Ondansetron Odt ] 4 mg PO Q6H PRN 03/17/24 [History] Rifaximin [Xifaxan] 550 mg PO DAILY 03/17/24 [History] Torsemide [Soaanz] 40 mg PO DAILY 03/17/24 [History] Zinc Gluconate [Zinc] 30 mg PO DAILY 03/17/24 [History] Glipizide 5 mg [Glucotrol 5 MG] 5 mg PO DAILY 04/30/24 [History] Hx Tetanus, Diphtheria Vaccination/Date Given: No Hx Influenza Vaccination/Date Given: No Hx Pneumococcal Vaccination/Date Given: No Immunizations Up to Date: Yes Travel Risk - International Travel Have you traveled outside of the country in past 3 weeks: No - Emerging Infectious Disease Are you exhibiting symptoms associated with any current EIDs: No - Review of Systems Constitutional: Fatigue Eyes: No Symptoms Ears, Nose, & Throat: No Symptoms Respiratory: No Symptoms Cardiac: No Symptoms Abdominal/Gastrointestinal: No Symptoms Musculoskeletal: Arthralgias Skin: No Symptoms Neurological: No Symptoms - Past Medical History Pertinent Past Medical History: Yes Neurological History: No Pertinent History ENT History: No Pertinent History Cardiac History: Other Respiratory History: Asthma Endocrine Medical History: Diabetes Type II, Liver Disease Musculoskeletal History: No Pertinent History GI Medical History: Cirrhosis, Gallbladder Disease History: No Pertinent History Psycho-Social History: No Pertinent History Female Reproductive Disorders: Breast Cancer Other Medical History: PMH: 30 RADIATION TREATMENTS FOR BREAST CANCER 5 YEARS AGO, 50+ PARACENTESIS OF ABDOMINAL FLUID SECONDARY TO ASCITIES AND LIVER FAILURE. PSH: COMPLETE HYSTERCTOMY, COLON POLYP REMOVAL, BREAST CANCER LUMP REMOVAL R SIDE - Past Surgical History Past Surgical History: Yes Neuro Surgical History: No Pertinent History Cardiac: No Pertinent History Respiratory: No Pertinent History Gastrointestinal: Hemorrhoidectomy Genitourinary: No Pertinent History Musculoskeletal: No Pertinent History Female Surgical History: Hysterectomy, Lumpectomy Other Surgical History: exploratory lap.,right foot tendon, anal fissures,liver transplant aug 2024 Significant Family History: heart disease, diabetes, hypertension - Social History Smoking Status: Never smoker Exposure to second hand smoke: No Alcohol Use: None Drug Use: none Patient Lives Alone: No - Social Determinants of Health Will the patient participate in the screening: Unable to obtain - Nursing Vital Signs Nursing Vital Signs: Initial Vital Signs Temperature 99.4 F 09/23/24 14:52 Pulse Rate 96 H 09/23/24 14:52 Respiratory Rate 24 09/23/24 14:52 Blood Pressure 109/60 09/23/24 14:52 O2 Sat by Pulse Oximetry 100 09/23/24 14:52 Pain Scale Pain Intensity 0 - Physical Exam General Appearance: no apparent distress, alert Eye Exam: pale conjunctivae Ears, Nose, Throat Exam: normal ENT inspection Neck Exam: normal inspection, non-tender, supple, full range of motion Respiratory Exam: normal breath sounds, lungs clear Cardiovascular Exam: regular rate/rhythm, normal heart sounds Gastrointestinal/Abdomen Exam: soft, normal bowel sounds Extremity Exam: normal inspection, normal range of motion Neurologic Exam: alert, oriented x 3, cooperative, 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 Skin Exam: normal color SpO2 Interpretation: normal SpO2: 99 O2 Delivery: Room Air Ordered Tests: Active Orders 24 hr Category Date Time Status IV Insertion STAT Care 09/23/24 15:28 Completed Medication Summary Discontinued Medications Generic Name Dose Route Start Last Admin Trade Name Tiffani PRN Reason Stop Dose Admin Sodium Chloride Confirm 09/23/24 16:58 Sodium Chloride 0.9% 500 Ml Administered 09/23/24 16:59 Dose 500 mls @ ud IV .STK-MED ONE Sodium Chloride 500 mls @ 50 mls/hr 09/23/24 17:00 09/23/24 17:01 Sodium Chloride 0.9% 500 Ml IV 10/23/24 16:59 50 mls/hr .Q10H SHILA Administration Lab/Rad Data: Laboratory Results 09/23/24 09/23/24 Range/Units 15:40 15:40 ABO Group O Rh Factor NEGATIVE Antibody Screen NEGATIVE (NEGATIVE) Crossmatch COMPATIBLE COMPATIBLE (COMPATIBLE) - Progress Progress: unchanged Progress Note: 09/23/24 17:41 64-year-old female with liver transplant, anemia is evaluated in the ER for hemoglobin 6.5 checked earlier today. Patient is running in the low 7s lately after surgery. Patient is currently not symptomatic but does report having some dyspnea with exertions at times. She has no history of GI bleed. Chemistries are fairly unremarkable from 1 done this morning. I have discussed with Dr. Bar patient's transplant team, reviewed history and lab work, recommended 1 unit transfusion, discharge and outpatient follow-up with transplant team. I have discussed with patient and family in detail about risk and benefits of transfusion and they both agreed to go ahead with it. We will transfuse 1 unit. 09/23/24 18:59 Patient is given 1 unit of blood which she tolerated very well without any issue. She is being discharged and recommended outpatient follow-up with her primary transplant team. Discussed with : Other (Dr. Stock liver transplant [facility]) Counseled pt/family regarding: diagnosis, need for follow-up Medical Desision Making - Independent Historian Additional History obtained from: Spouse - Discussion of managment Care discussed with:: specialist (Liver transplant Dr. Bar) Reviewed:: Test results Agreed on:: need for follow-up Will see patient: In office - Risk of complications The pt has a mod risk of morbidity or mortality based on: Need for prescription drug management - Departure Departure Disposition: Home Clinical Impression: Anemia, Liver transplant recipient Condition: Stable Critical Care Time: No Referrals: DAVON BURTON NP [Primary Care Provider] - Follow up with PCP 1 day Instructions: Blood transfusion Additional Instructions: Follow-up with your primary care and primary transplant team for reevaluation in 1 to 2 days. Return to ER if having chest pain palpitations or shortness of breath etc.
[2024-09-23 19:01] VITALS: PULSE 81
[2024-09-23 19:54] VITALS: BP 120/65; RESP 20; O2SAT 99
== END 2024-09-23 19:45 | disposition home or self-care (01) ==
LOC: ED 14:50
DX: D64.9 Anemia, unspecified (principal); R79.89 Other specified abnormal findings of blood chemistry; Z94.4 Liver transplant status; Z85.3 Personal history of malignant neoplasm of breast; Z79.899 Other long term (current) drug therapy
CPT/HCPCS: 36415; 36430; 86850; 86900; 86901; 86922; 99285; P9016

== ENCOUNTER 2024-10-13 15:40 | Emergency (ER) | payer MEDICARE ==
[2024-10-13 18:04] VITALS: TEMP 98
--- NOTE | 2024-10-13 18:15 | ERPHSYRPT ---
- History of Present Illness Source: patient Exam Limitations: no limitations Patient Subjective Stated Complaint: "Im here today because I need a blood transfusion". I had a liver transplant this past august. Triage Nursing Assessment: Patient states she is here due to low hgb and states needs a blood transfusion due to blood draw this am shows 6.5 hgb. Patient had liver transplant done at [facility] this past august. Patient aaox3, walked in. Hx Tetanus, Diphtheria Vaccination/Date Given: No Hx Influenza Vaccination/Date Given: No Hx Pneumococcal Vaccination/Date Given: No Immunizations Up to Date: No <JM BOYD - Last Filed: 10/13/24 18:55> <VIKTORIA DAVISON - Last Filed: 10/13/24 22:53> - History of Present Illness Time Seen by Provider: 10/13/24 15:48 Physician History: 64-year-old female with history of liver transplant almost 2 months ago, hypertension, diabetes mellitus, hypothyroidism, chronic anemia following liver transplant needing multiple transfusions sent in ER by Dr. Faith for hemoglobin of 6.5. Patient denies any active symptoms and reports that she is actually feeling better for the last couple of days. She had a routine labs done this mo rning. Patient denies any melena hematochezia, hematemesis or hemoptysis. She does have some upper abdominal discomfort since surgery which is not any worse than usual. No chest pain palpitations or shortness of breath. (JM BOYD) Allergies/Adverse Reactions: albuterol Allergy (Severe, Verified 09/23/24 15:04) Difficulty Breathing resp. distress ciprofloxacin [From Cipro] Allergy (Severe, Verified 09/23/24 15:04) Swelling Sulfa (Sulfonamide Antibiotics) Allergy (Severe, Verified 09/23/24 15:04) Tightness of Throat throat swells doxycycline Adverse Reaction (Verified 09/23/24 15:04) Vomiting flu shot Allergy (Uncoded 09/23/24 15:04) Home Medications: Levothyroxine Sodium 75 mcg PO DAILY 12/11/19 [History] Spironolactone 50 mg PO DAILY 04/18/21 [History] Cholecalciferol (Vitamin D3) [Vitamin D] 400 unit PO DAILY 03/17/24 [History] Lactulose 10 gm PO TID 03/17/24 [History] Ondansetron [Ondansetron Odt ] 4 mg PO Q6H PRN 03/17/24 [History] Rifaximin [Xifaxan] 550 mg PO DAILY 03/17/24 [History] Torsemide [Soaanz] 40 mg PO DAILY 03/17/24 [History] Zinc Gluconate [Zinc] 30 mg PO DAILY 03/17/24 [History] Glipizide 5 mg [Glucotrol 5 MG] 5 mg PO DAILY 04/30/24 [History] Travel Risk - International Travel Have you traveled outside of the country in past 3 weeks: No - Emerging Infectious Disease Are you exhibiting symptoms associated with any current EIDs: Yes Symptoms: Abdominal Pain Comment: abd pain post liver transplant <JM BOYD - Last Filed: 10/13/24 18:55> - Review of Systems Constitutional: No Symptoms Eyes: No Symptoms Ears, Nose, & Throat: No Symptoms Respiratory: No Symptoms Cardiac: No Symptoms Abdominal/Gastrointestinal: Abdominal Pain Genitourinary Symptoms: No Symptoms Musculoskeletal: Arthralgias Skin: No Symptoms Neurological: No Symptoms Endocrine: No Symptoms <JM BOYD - Last Filed: 10/13/24 18:55> - Past Medical History Pertinent Past Medical History: Yes Neurological History: No Pertinent History ENT History: No Pertinent History Cardiac History: Other Respiratory History: Asthma Endocrine Medical History: Diabetes Type II, Liver Disease Musculoskeletal History: No Pertinent History GI Medical History: Cirrhosis, Gallbladder Disease History: No Pertinent History Psycho-Social History: No Pertinent History Female Reproductive Disorders: Breast Cancer Other Medical History: PMH: 30 RADIATION TREATMENTS FOR BREAST CANCER 5 YEARS AGO, 50+ PARACENTESIS OF ABDOMINAL FLUID SECONDARY TO ASCITIES AND LIVER FAILURE. PSH: COMPLETE HYSTERCTOMY, COLON POLYP REMOVAL, BREAST CANCER LUMP REMOVAL R SIDE - Past Surgical History Past Surgical History: Yes Neuro Surgical History: No Pertinent History Cardiac: No Pertinent History Respiratory: No Pertinent History Gastrointestinal: Hemorrhoidectomy Genitourinary: No Pertinent History Musculoskeletal: No Pertinent History Female Surgical History: Hysterectomy, Lumpectomy Other Surgical History: exploratory lap.,right foot tendon, anal fissures,liver transplant aug 2024 Significant Family History: heart disease, diabetes, hypertension - Social History Smoking Status: Never smoker Exposure to second hand smoke: No Alcohol Use: None Drug Use: none Patient Lives Alone: No - Social Determinants of Health Will the patient participate in the screening: Yes Do you worry about a steady place to live?: No Do you have any problems with any of the following?: No known problems In the past 12 months,have you had to go without utilities?: No Transportation Issues: No Has anyone in your support network made you feel unsafe?: No Have you or anyone in your house had to go without enough: No <JM BOYD - Last Filed: 10/13/24 18:55> - Physical Exam General Appearance: no apparent distress Eye Exam: PERRL/EOMI Ears, Nose, Throat Exam: normal ENT inspection Neck Exam: normal inspection, full range of motion Respiratory Exam: normal breath sounds, lungs clear Cardiovascular Exam: regular rate/rhythm, normal heart sounds Gastrointestinal/Abdomen Exam: soft, normal bowel sounds, tenderness (Mild upper abdominal tenderness) Extremity Exam: normal inspection, normal range of motion Neurologic Exam: alert, oriented x 3, cooperative Skin Exam: normal color SpO2 Interpretation: normal SpO2: 100 O2 Delivery: Room Air <JM BOYD - Last Filed: 10/13/24 18:55> - Nursing Vital Signs Nursing Vital Signs: Initial Vital Signs Temperature 98.0 F 10/13/24 17:50 Pulse Rate 90 10/13/24 17:50 Respiratory Rate 20 10/13/24 17:50 Blood Pressure 124/45 10/13/24 17:50 O2 Sat by Pulse Oximetry 100 10/13/24 17:50 Pain Scale Pain Intensity 0 - Course Nursing assessment & vital signs reviewed: Yes <VIKTORIA DAVISON - Last Filed: 10/13/24 22:53> Ordered Tests: Active Orders 24 hr Category Date Time Status IV Insertion STAT Care 10/13/24 17:49 Active Ferritin Stat Lab 10/13/24 18:25 Completed HEMOGLOBIN AND HEMATOCRIT Stat Lab 10/13/24 18:25 Completed Medication Summary Generic Name Dose Route Start Last Admin Trade Name Freq PRN Reason Stop Dose Admin Sodium Chloride 250 mls @ 250 mls/hr 10/13/24 21:15 10/13/24 21:34 Sodium Chloride 0.9% 250 Ml IV 10/13/24 22:14 50 mls/hr .Q1H SHILA Administration Lab/Rad Data: Laboratory Result Diagrams 10/13/24 18:25 Laboratory Results 10/13/24 10/13/24 10/13/24 Range/Units 18:25 18:25 18:25 Hgb 6.5 L* (11.2-15.7) g/dL Hct 21.3 L (34.1-44.9) % Iron 60 (37-170) ug/dL TIBC 305 (265-462) ug/dL Iron Saturation 20 (20-39) % Ferritin 399 H (11.1-264) ng/mL ABO Group Rh Factor Antibody Screen (NEGATIVE) Crossmatch (COMPATIBLE) 10/13/24 10/13/24 Range/Units 18:05 18:05 Hgb (11.2-15.7) g/dL Hct (34.1-44.9) % Iron (37-170) ug/dL TIBC (265-462) ug/dL Iron Saturation (20-39) % Ferritin (11.1-264) ng/mL ABO Group O Rh Factor NEGATIVE Antibody Screen NEGATIVE (NEGATIVE) Crossmatch COMPATIBLE (COMPATIBLE) <JM BOYD - Last Filed: 10/13/24 18:55> - Progress Progress: improved Discussed with : Other Counseled pt/family regarding: lab results, diagnosis, need for follow-up <VIKTORIA DAVISON - Last Filed: 10/13/24 22:53> - Progress Progress Note: 10/13/24 18:57 Workup is pending, care is transferred to Dr. Davison at end of my shift for reevaluation and final disposition. (JM BOYD) I spoke to transplant Dr. Benitez who advised obtaining iron studies including TIBC ferritin transferrin prior to transfusion. He advised transfuse 1 unit PRBC then patient may be discharged. I spoke to our transplant doctor at 8:58 PM 10/13/24 21:03 64-year-old female history of liver transplant presents to our ED as a referral from her primary care doctor for a blood transfusion secondary to a hemoglobin of 6.5. Patient initially evaluated by who ordered the type and screen as well as blood products. As stated above I discussed the case with patient's transplant surgeon. He advises 1 unit of PRBC and discharge. He requested obtaining iron studies prior to transfusion. Iron studies obtained. Transfusion completed. Patient reassessed. Vital stable. Patient asymptoma tic. Patient states she feels well and is ready for discharge. at bedside. They voiced no other complaints or concerns at this time. Will discharge at this time. They agree to follow-up with the transplant service within the next 48 hours for reevaluation. Portions of this note were created with voice recognition technology. There may be grammatical, spelling, punctuation or sound alike errors Complexity of problem addressed is moderate acute complicated no critical care time. Complex of data reviewed and analyzed is extensive. Test ordered chest reviewed results analyzed and correlated clinically with history and physical exam. Management discussed with patient's transplant service. Risk of complication and or risk of morbidity/mortality of patient management is low. Vital stable. Time spent to discharge patient is approximately 20 minutes. Plan of care established for shared decision making. No social determinants of health present to impede follow-up. Portions of this note were created with voice recognition technology. There may be grammatical, spelling, punctuation or sound alike errors 10/13/24 22:50 (VIKTORIA DAVISON) <JM BOYD - Last Filed: 10/13/24 18:55> - Departure Departure Disposition: Home Critical Care Time: No <VIKTORIA DAVISON - Last Filed: 10/13/24 22:53> - Departure Clinical Impression: Anemia, Blood transfusion during current hospitalization Condition: Stable Referrals: DAVON BURTON RN IMMUNOLOGY [Primary Care Provider] - Follow up/PCP as directed Additional Instructions: Discharge/Care Plan JIMERROL RAMIREZ was seen on 10/13/24 in the Emergency Room. The patient was counseled regarding Diagnosis,Lab results, Imaging studies, need for follow up and when to return to the Emergency Room. Prescriptions given: Discharge Note I have spoken with the patient and/or caregivers. I have explained the patient's condition, diagnosis and treatment plan based on the information available to me at this time. I have answered the patient's and/or caregiver's questions and addressed any concerns. The patient and/or caregivers have as good understanding of the patient's diagnosis, condition and treatment plan as can be expected at this point. The vital signs have been stable. The patient's condition is stable and appropriate for discharge from the emergency department. The patient will pursue further outpatient evaluation with the primary care physician or other designated or consulting physician as outlined in the discharge instructions. The patient and/or caregivers are agreeable to this plan of care and follow-up instructions have been explained in detail. The patient and/or caregivers have received these instruction. The patient/and or caregivers are aware that any significant change in condition or worsening of symptoms should prompt an immediate return to this or the closest emergency department or call 911.
[2024-10-13 18:30] LABS: Hematocrit 21.3 % (34.1-44.9)
[2024-10-13 18:55] LABS: Hemoglobin 6.5 g/dL (11.2-15.7)
[2024-10-13 19:35] LABS: ABO TYPING O; Antibody Screen NEGATIVE (NEGATIVE); RH TYPING NEGATIVE
[2024-10-13 19:36] LABS: CROSS MATCH (PRBC) COMPATIBLE (COMPATIBLE)
[2024-10-13] MEDS ORDERED: Sodium Chloride 0.9% 250 ML 250 ML IV ONE (21:05)
[2024-10-13 21:24] LABS: Iron 60 ug/dL (37-170); Iron Saturation 20 % (20-39); TIBC 305 ug/dL (265-462)
[2024-10-13] MEDS: Sodium Chloride 0.9% 250 ML 250 ML IV SCH (21:34)
[2024-10-13 23:09] VITALS: BP 142/92; PULSE 92; RESP 17; O2SAT 98
== END 2024-10-13 23:03 | disposition home or self-care (01) ==
LOC: ED 15:40
DX: D64.9 Anemia, unspecified (principal); E11.9 Type 2 diabetes mellitus without complications; I10 Essential (primary) hypertension; Z85.3 Personal history of malignant neoplasm of breast; Z94.4 Liver transplant status
CPT/HCPCS: 36415; 36430; 82728; 83540; 83550; 84466; 85014; 85018; 86850; 86900; 86901; 86922; 99285; P9016; 99284

== ENCOUNTER 2024-11-05 11:37 | Emergency (ER) | payer MEDICARE ==
[2024-11-05 11:44] VITALS: TEMP 99.5
--- NOTE | 2024-11-05 11:48 | ERPHSYRPT ---
- History of Present Illness Time Seen by Provider: 11/05/24 11:47 Source: patient, EMS, old records Exam Limitations: no limitations Physician History: This is a 64-year-old white female patient of nurse practitioner Bryanna who presents to the emergency department transported to our facility by the paramedics secondary to sudden onset of shortness of breath this morning. Patient states that she was fine yesterday but woke up short of breath this morning. Patient was placed on a nonrebreather mask. On arrival to the emergency department her oxygen saturation levels on room air was 91 to 93%. Her heart rate was 129. The rhythm strip presented to me by the paramedics shows sinus tachycardia. Patient denies chest pain. Patient states that she feels as though her throat is tight and she has hoarseness while speaking. Patient states that she is allergic to albuterol which causes swelling of the tongue and elevated heart rate. Patient underwent a liver transplant in August 2024 and she states that she was just starting to get out and about. Patient h as a history of type 2 diabetes and hypothyroidism. Timing/Duration: today Activities at Onset: none Severity of Dyspnea-Max: moderate Severity of Dyspnea-Current: moderate Possible Cause: no prior episodes Modifying Factors: Improves With: oxygen Associated Symptoms: anxiety (Improves), No chest pain/discomfort Allergies/Adverse Reactions: albuterol Allergy (Severe, Verified 11/05/24 11:40) Difficulty Breathing resp. distress ciprofloxacin [From Cipro] Allergy (Severe, Verified 11/05/24 11:40) Swelling Sulfa (Sulfonamide Antibiotics) Allergy (Severe, Verified 11/05/24 11:40) Tightness of Throat throat swells doxycycline Adverse Reaction (Verified 11/05/24 11:40) Vomiting flu shot Allergy (Uncoded 11/05/24 11:40) Home Medications: Levothyroxine Sodium 75 mcg PO DAILY 12/11/19 [History] Spironolactone 50 mg PO DAILY 04/18/21 [History] Cholecalciferol (Vitamin D3) [Vitamin D] 400 unit PO DAILY 03/17/24 [History] Lactulose 10 gm PO TID 03/17/24 [History] Ondansetron [Ondansetron Odt ] 4 mg PO Q6H PRN 03/17/24 [History] Rifaximin [Xifaxan] 550 mg PO DAILY 03/17/24 [History] Torsemide [Soaanz] 40 mg PO DAILY 03/17/24 [History] Zinc Gluconate [Zinc] 30 mg PO DAILY 03/17/24 [History] Glipizide 5 mg [Glucotrol 5 MG] 5 mg PO DAILY 04/30/24 [History] Hx Tetanus, Diphtheria Vaccination/Date Given: No Hx Influenza Vaccination/Date Given: No Hx Pneumococcal Vaccination/Date Given: No Travel Risk - International Travel Have you traveled outside of the country in past 3 weeks: No - Emerging Infectious Disease Are you exhibiting symptoms associated with any current EIDs: Yes Symptoms: Abdominal Pain Comment: abd pain post liver transplant - Review of Systems Constitutional: No Symptoms Eyes: No Symptoms Ears, Nose, & Throat: No Symptoms Respiratory: Dyspnea, Stridor Cardiac: No Symptoms Abdominal/Gastrointestinal: No Symptoms Genitourinary Symptoms: No Symptoms Musculoskeletal: No Symptoms Skin: No Symptoms Neurological: No Symptoms Psychological: No Symptoms Endocrine: No Symptoms Hematologic/Lymphatic: No Symptoms Immunological/Allergic: No Symptoms All Other Systems: Reviewed and Negative - Past Medical History Pertinent Past Medical History: Yes Neurological History: No Pertinent History ENT History: No Pertinent History Cardiac History: Other Respiratory History: Asthma Endocrine Medical History: Diabetes Type II, Liver Disease Musculoskeletal History: No Pertinent History GI Medical History: Cirrhosis, Gallbladder Disease History: No Pertinent History Psycho-Social History: No Pertinent History Female Reproductive Disorders: Breast Cancer Other Medical History: PMH: 30 RADIATION TREATMENTS FOR BREAST CANCER 5 YEARS AGO, 50+ PARACENTESIS OF ABDOMINAL FLUID SECONDARY TO ASCITIES AND LIVER FAILURE. PSH: COMPLETE HYSTERCTOMY, COLON POLYP REMOVAL, BREAST CANCER LUMP REMOVAL R SIDE - Past Surgical History Past Surgical History: Yes Neuro Surgical History: No Pertinent History Cardiac: No Pertinent History Respiratory: No Pertinent History Gastrointestinal: Hemorrhoidectomy Genitourinary: No Pertinent History Musculoskeletal: No Pertinent History Female Surgical History: Hysterectomy, Lumpectomy Other Surgical History: exploratory lap.,right foot tendon, anal fissures,liver transplant aug 2024 Significant Family History: heart disease, diabetes, hypertension - Social History Smoking Status: Never smoker Exposure to second hand smoke: No Alcohol Use: None Drug Use: none Patient Lives Alone: No - Social Determinants of Health Will the patient participate in the screening: Yes Do you worry about a steady place to live?: No In the past 12 months,have you had to go without utilities?: No Transportation Issues: No Has anyone in your support network made you feel unsafe?: No Have you or anyone in your house had to go without enough: No - Nursing Vital Signs Nursing Vital Signs: Initial Vital Signs Temperature 99.5 F 11/05/24 11:37 Pulse Rate 130 H 11/05/24 11:37 Respiratory Rate 24 11/05/24 11:37 Blood Pressure 160/103 11/05/24 11:37 O2 Sat by Pulse Oximetry 90 L 11/05/24 11:37 Pain Scale Pain Intensity 0 - Physical Exam General Appearance: mild distress, alert, anxiety Eye Exam: PERRL/EOMI, eyes nml inspection Ears, Nose, Throat Exam: hearing grossly normal, normal ENT inspection, normal pharynx Neck Exam: normal inspection, non-tender, supple, full range of motion Respiratory Exam: normal breath sounds, lungs clear, respiratory distress (Mild), airway intact, No chest tenderness Cardiovascular/Chest Exam: tachycardia Abdominal/Gastrointestinal Exam: soft, normal bowel sounds, No tenderness Rectal Exam: not done Extremity Exam: non-tender, normal range of motion, normal inspection Neurologic Exam: alert, oriented x 3, cooperative, gleason operator II-XII nml as tested, nml cerebellar function, nml station & gait, sensation nml Skin Exam: normal color, warm, dry Lymphatic Exam: No adenopathy SpO2 Interpretation: borderline oxygenation SpO2: 90 O2 Delivery: Room Air - Course Nursing assessment & vital signs reviewed: Yes EKG Interpreted by Me: RATE (129), Sinus Tach, NORMAL AXIS, NORMAL INTERVALS, NORMAL QRS, NORMAL ST-T, Other (No acute ischemic changes. QTc is 412) Ordered Tests: Active Orders 24 hr Category Date Time Status Underwear Welter STAT Care 11/05/24 11:50 Active EKG-ER Only STAT Care 11/05/24 11:50 Active IV Insertion STAT Care 11/05/24 11:50 Active Pulse Oximetry (ED) STAT Care 11/05/24 11:50 Active CHEST 1 VIEW (PORTABLE) Stat Exams 11/05/24 11:50 Completed ARTERIAL BLOOD GASES Stat Lab 11/05/24 12:01 Completed BLOOD CULTURE Stat Lab 11/05/24 11:50 Received CBC W DIFF Stat Lab 11/05/24 11:50 Completed CMP Stat Lab 11/05/24 12:41 Completed MAGNESIUM Stat Lab 11/05/24 12:41 Completed NT PRO BNPII Stat Lab 11/05/24 12:41 Completed TROPONIN Q4H Lab 11/05/24 12:41 Completed TROPONIN Q4H Lab 11/05/24 16:00 Ordered TROPONIN Q4H Lab 11/05/24 20:00 Ordered Medication Summary Discontinued Medications Generic Name Dose Route Start Last Admin Trade Name Zakiq PRN Reason Stop Dose Admin Methylprednisolone Sodium 0 mg 11/05/24 11:50 11/05/24 12:03 Succinate 125 mg/ Sterile IV 11/05/24 11:51 125 mg Water 2 ml STAT ONE Administration Methylprednisolone Sodium Succinate Confirm 11/05/24 11:58 Methylprednis Sod Succ 125 Mg/2 Ml Vial Administered 11/05/24 11:59 Dose 125 mg .ROUTE .STK-MED ONE Oseltamivir Phosphate 75 mg 11/05/24 13:58 11/05/24 14:17 Oseltamivir 75 Mg Cap PO 11/05/24 13:59 75 mg STAT ONE Administration Oseltamivir Phosphate Confirm 11/05/24 14:15 Oseltamivir 75 Mg Cap Administered 11/05/24 14:16 Dose 75 mg PO .STK-MED ONE Sterile Water Confirm 11/05/24 11:58 Water For Injection,Sterile 10 Ml Vial Administered 11/05/24 11:59 Dose 10 ml IJ .STK-MED ONE Lab/Rad Data: Laboratory Result Diagrams 11/05/24 11:50 11/05/24 12:41 Laboratory Results 11/05/24 11/05/24 11/05/24 Range/Units 12:41 12:41 12:41 WBC (3.98-10.04) x10^3/uL RBC (3.93-5.22) x10^6/uL Hgb (11.2-15.7) g/dL Hct (34.1-44.9) % MCV (79.4-94.8) fL MCH (25.6-32.2) pg MCHC (32.2-35.5) g/dL RDW (11.7-14.4) % Plt Count (182-369) x10^3/uL MPV (9.4-12.3) fL Gran % (34.0-71.1) % Immature Gran % (Auto) (0.001-0.429) % Nucleat RBC Rel Count (0.00-0.2) % Eos # (Auto) (0.04-0.36) x10^3/uL Immature Gran # (Auto) (0.001-0.031) x10^3u/L Absolute Lymphs (auto) (1.18-3.74) x10^3/uL Absolute Monos (auto) (0.24-0.86) x10^3/uL Absolute Nucleated RBC (0.00-0.012) x10^3u/L Lymphocytes % (19.3-51.7) % Monocytes % (4.7-12.5) % Eosinophils % (0.7-5.8) % Basophils % (0.1-1.2) % Absolute Granulocytes (1.56-6.13) x10^3/uL Basophils # (0.01-0.08) x10^3/uL Puncture Site pCO2 (35-45) mmHg pO2 (75-100) mmHg Base Excess (-2.0-2.0) O2 Saturation (94-100) g/dF ABG pH (7.35-7.45) ABG HCO3 (22-28) ABG O2 Sat (Measured) (95-100) % Rock Test A-a Gradient a/A Ratio Hemoglobin Carboxyhemoglobin (0.0-6.9) % THgb Methemoglobin (1.4-1.5) % Potassium 3.7 (3.5-5.1) Temperature C POC O2 Flow Rate % Sodium 137 (135-145) mmol/L Chloride 96 L (98-107) mmol/L Carbon Dioxide 28 (22-30) mmol/L Anion Gap 16.9 H (5-15) MEQ/L BUN 24 H (7-17) mg/dL Creatinine 1.47 H (0.52-1.04) mg/dL Estimated GFR 39.4 ML/MIN Glucose 313 H (74-106) mg/dL Calcium 9.4 (8.4-10.2) mg/dL Magnesium 2.2 (1.6-2.3) mg/dL Total Bilirubin 0.80 (0.2-1.3) mg/dL AST 42 H (14-36) U/L ALT 24 (0-35) U/L Alkaline Phosphatase 153 H (38-126) U/L Troponin I < 0.012 (0.000-0.033) ng/mL NT-Pro-B Natriuret Pep 217 (<300) pg/mL Serum Total Protein 7.4 (6.3-8.2) g/dL Albumin 4.6 (3.5-5.0) g/dL Influenza Type A Ag POSITIVE A (NEGATIVE) Influenza Type B Ag NEGATIVE (NEGATIVE) RSV (PCR) NEGATIVE (NEGATIVE) SARS-CoV-2 (PCR) NEGATIVE (NEGATIVE) 11/05/24 11/05/24 Range/Units 12:01 11:50 WBC 5.2 (3.98-10.04) x10^3/uL RBC 3.53 L (3.93-5.22) x10^6/uL Hgb 10.1 L (11.2-15.7) g/dL Hct 33.0 L (34.1-44.9) % MCV 93.5 (79.4-94.8) fL MCH 28.6 (25.6-32.2) pg MCHC 30.6 L (32.2-35.5) g/dL RDW 17.8 H (11.7-14.4) % Plt Count 233 (182-369) x10^3/uL MPV 8.8 L (9.4-12.3) fL Gran % 76.5 H (34.0-71.1) % Immature Gran % (Auto) 1.0 H (0.001-0.429) % Nucleat RBC Rel Count 0.0 (0.00-0.2) % Eos # (Auto) 0.24 (0.04-0.36) x10^3/uL Immature Gran # (Auto) 0.05 H (0.001-0.031) x10^3u/L Absolute Lymphs (auto) 0.51 L (1.18-3.74) x10^3/uL Absolute Monos (auto) 0.38 (0.24-0.86) x10^3/uL Absolute Nucleated RBC 0.00 (0.00-0.012) x10^3u/L Lymphocytes % 9.8 L (19.3-51.7) % Monocytes % 7.3 (4.7-12.5) % Eosinophils % 4.6 (0.7-5.8) % Basophils % 0.8 (0.1-1.2) % Absolute Granulocytes 4.00 (1.56-6.13) x10^3/uL Basophils # 0.04 (0.01-0.08) x10^3/uL Puncture Site LEFT BRACHIAL pCO2 45 (35-45) mmHg pO2 127 H* (75-100) mmHg Base Excess 5.8 H (-2.0-2.0) O2 Saturation 95.1 (94-100) g/dF ABG pH 7.44 (7.35-7.45) ABG HCO3 30.6 H* (22-28) ABG O2 Sat (Measured) 99.9 (95-100) % Rock Test NOT APPLICABLE A-a Gradient 138 a/A Ratio 0.48 Hemoglobin 9.8 Carboxyhemoglobin 1.5 (0.0-6.9) % THgb Methemoglobin 3.3 H (1.4-1.5) % Potassium 3.4 L (3.5-5.1) Temperature 37.0 C POC O2 Flow Rate 45 % Sodium (135-145) mmol/L Chloride (98-107) mmol/L Carbon Dioxide (22-30) mmol/L Anion Gap (5-15) MEQ/L BUN (7-17) mg/dL Creatinine (0.52-1.04) mg/dL Estimated GFR ML/MIN Glucose (74-106) mg/dL Calcium (8.4-10.2) mg/dL Magnesium (1.6-2.3) mg/dL Total Bilirubin (0.2-1.3) mg/dL AST (14-36) U/L ALT (0-35) U/L Alkaline Phosphatase (38-126) U/L Troponin I (0.000-0.033) ng/mL NT-Pro-B Natriuret Pep (<300) pg/mL Serum Total Protein (6.3-8.2) g/dL Albumin (3.5-5.0) g/dL Influenza Type A Ag (NEGATIVE) Influenza Type B Ag (NEGATIVE) RSV (PCR) (NEGATIVE) SARS-CoV-2 (PCR) (NEGATIVE) - Progress Progress: improved, re-examined Air Movement: fair Progress Note: 11/05/24 12:44 My medical decision making and the assignment of moderate to high complexity is based on review of the patient's past medical history, review of the patient's medication list, reviewed patient drug allergy list, history present illness and physical findings on examination. The workup in this patient includes placement of intravenous line, RT evaluation and management, twelve-lead EKG, BNP, troponin level, CBC, CMP, viral swabs, monotest, chest x-ray, intravenous Solu-Medrol Differential diagnosis includes but is not limited to viral illness, mononucle osis, pneumonia, arrhythmia, myocardial infarction, CHF exacerbation, COPD exacerbation 11/05/24 12:59 The chest x-ray was interpreted by the radiologist and I reviewed the impression. The impression states nonacute chest with chronic features 11/05/24 14:24 I interpreted the patient's laboratory data results. Based on the laboratory data results, the patient has influenza A infection. The patient wants to go home. We are making arrangements for her to go home on home oxygen therapy. On 2 L of oxygen she states that she is much more comfortable. Her oxygen saturation levels on 2 L is 95 to 96%. Her heart rate now is 108 bpm. She has no chest pain. Her BNP and troponin levels are negative. She does not have a pneumonia on chest x-ray interpreted by the radiologist. Blood Culture(s) Obtained: Yes Antibiotics given: No Counseled pt/family regarding: lab results, diagnosis, rad results Medical Desision Making - Independent Historian Additional History obtained from: Spouse - Diagnostic Testing Diagnostic test were ordered, analyzed, and reviewed by me: Yes Radiological Interpretation: Reviewed by me, Teleradiologist Report - Risk of complications The pt has a mod risk of morbidity or mortality based on: Need for prescription drug management - Departure Departure Disposition: Home Clinical Impression: Influenza A H1N1 infection Condition: Stable Critical Care Time: No Referrals: DAVON BURTON NP [Primary Care Provider] - Follow up/PCP as directed Additional Instructions: Drink plenty of fluids. Take your medications as prescribed. Call your [facility] physician as well as your primary care provider later today, 11/05/2024, to make arrangements for follow-up appointment to be seen next week. Ask your transplant physician today, 11/05/2024, if you can continue the Tamiflu and prednisone medication. Return to the emergency department if your symptoms worsen. Prescriptions: Prednisone 10 mg [Deltasone 10 mg] 10 mg PO TID #12 tablet Oseltamivir 75 mg [Tamiflu 75MG Capsule] 75 mg PO BID #10 cap
[2024-11-05] MEDS ORDERED: solu-MEDROL ONE (11:58)
[2024-11-05] MEDS ORDERED: Sterile H2O 10 ml IJ ONE (11:58)
[2024-11-05] MEDS: solu-MEDROL 125 MG, Sterile H2O 10 ml 2 ML IV ONE (12:03)
[2024-11-05 12:05] LABS: A-aADO2 138; ABG HEMOGLOBIN 9.8; ABG POTASSIUM 3.4 (3.5-5.1); ABG SITE LEFT BRACHIAL; ARTERIAL BLD GAS O2 SATURATION 99.9 % (95-100); ARTERIAL BLOOD GAS BASE EXCESS 5.8 (-2.0-2.0); ARTERIAL BLOOD GAS FIO2 45 %; ARTERIAL BLOOD GAS PCO2 45 mmHg (35-45); ARTERIAL BLOOD GAS PO2 127 mmHg (75-100); ARTERIAL BLOOD GAS pH 7.44 (7.35-7.45); CARBOXYHEMOGLOBIN 1.5 % THgb (0.0-6.9); HCO3- 30.6 (22-28); HGB O2 SAT 95.1 g/dF (94-100); Methhemoglobin 3.3 % (1.4-1.5); paO2 pAO1 0.48
--- NOTE | 2024-11-05 12:17 | XRAY ---
Indication: Short of breath. Comparison: September 22, 2023 Portable apical lordotic chest better inflated and remains clear again with incidental right mid lung calcified granuloma. Heart is not enlarged. Bony thorax intact again with mild degenerative changes. No new/acute findings. Impression: Continued nonacute chest with chronic features.
[2024-11-05 12:46] LABS: BASOPHIL % 0.8 % (0.1-1.2); Basophil (Absolute #) 0.04 x10^3/uL (0.01-0.08); Eosinophil % 4.6 % (0.7-5.8); Eosinophil (Absolute #) 0.24 x10^3/uL (0.04-0.36); Hemoglobin 10.1 g/dL (11.2-15.7); IMMATURE GRAN # 0.05 x10^3u/L (0.001-0.031); Lymphocyte (Absolute #) 0.51 x10^3/uL (1.18-3.74); Lymphocytes % 9.8 % (19.3-51.7); Mean Cell Volume 93.5 fL (79.4-94.8); Mean Corpuscular Hemoglobin 28.6 pg (25.6-32.2); Mean Corpuscular Hgb Concent. 30.6 g/dL (32.2-35.5); Mean Platelet Volume 8.8 fL (9.4-12.3); Monocyte (Absolute #) 0.38 x10^3/uL (0.24-0.86); Monocytes % 7.3 % (4.7-12.5); Neutrophil % 76.5 % (34.0-71.1); Platelet Count 233 x10^3/uL (182-369); Red Blood Count 3.53 x10^6/uL (3.93-5.22); Red Cell Distribution Width 17.8 % (11.7-14.4); White Blood Count 5.2 x10^3/uL (3.98-10.04)
[2024-11-05 13:02] VITALS: PULSE 112; RESP 16
[2024-11-05 13:11] LABS: ALBUMIN 4.6 g/dL (3.5-5.0); ANION GAP 16.9 MEQ/L (5-15); BILIRUBIN,TOTAL 0.8 mg/dL (0.2-1.3); Calcium 9.4 mg/dL (8.4-10.2); Creatinine 1 1.47 mg/dL (0.52-1.04); EST GLOMERULAR FILTRATION RATE 39.4 ML/MIN; MAGNESIUM 2.2 mg/dL (1.6-2.3); Potassium 3.7 mmol/L (3.5-5.1); Total Protein 7.4 g/dL (6.3-8.2)
[2024-11-05 13:23] LABS: INFLUENZA B NEGATIVE (NEGATIVE); RESPIRATORY SYNCTIAL VIRUS NEGATIVE (NEGATIVE); SARS-CoV-2 Xpert Express NEGATIVE (NEGATIVE)
[2024-11-05 13:26] LABS: INFLUENZA A POSITIVE (NEGATIVE)
[2024-11-05] MEDS ORDERED: Tamiflu 75MG Capsule PO ONE (14:15)
[2024-11-05] MEDS: Tamiflu 75MG Capsule PO ONE (14:17)
[2024-11-05 15:10] VITALS: BP 164/107; O2SAT 93
[2024-11-05 16:58] LABS: Slide Review 1 YES
== END 2024-11-05 15:13 | disposition home or self-care (01) ==
LOC: ED 11:37
DX: J09.X2 Influenza due to identified novel influenza A virus with other respiratory manifestations (principal); R06.02 Shortness of breath; R00.0 Tachycardia, unspecified; Z94.4 Liver transplant status
CPT/HCPCS: 0241U; 36415; 36600; 71045; 80053; 82375; 82803; 83735; 83880; 84484; 85025; 87040; 93005; 93041; 94760; 96374; 99284; J2919; A9270-GY